=== PATIENT | male | born 1945 | race American Indian/Alaskan Native ===

== ENCOUNTER 2017-04-04 10:34 | Inpatient (IN) | payer MEDICARE, BC ==
[2017-04-04 10:35] VITALS: PULSE 113
--- NOTE | 2017-04-04 10:38 | C.PDOC ---
Chief Complaint (Nursing): Weakness/Neurological Deficit Past Medical History - Medical History PMH: Arthritis, Atrial Fibrillation (A flutter), CHF, Diabetes, Deep Vein Thrombosis, HTN, Hypercholesterolemia, Hyperlipidemia, Peripheral Edema, Chronic Kidney Disease - [facility] Procedures DILATE R EXT ILIAC ART W DRUG-ELUT INTRALUM, PERC (01/17/15) DILATION OF RIGHT COMMON ILIAC ARTERY, PERCUTANEOUS APPROACH (01/17/15) INSERTION OF INTRALUM DEV INTO INF VENA CAVA, PERC APPROACH (01/17/15) INTRODUCE OTH THROMBOLYTIC IN PERIPH VEIN, PERC (01/17/15) TETANUS TOXOID ADMINIST (12/06/14) Family History: States: Unknown Family Hx - Social History Hx Tobacco Use: No Hx Alcohol Use: No Hx Substance Use: No - Immunization History Hx Tetanus Toxoid Vaccination: Yes (12/06/2014) Hx Influenza Vaccination: Yes Hx Pneumococcal Vaccination: Yes Disposition - Disposition
--- NOTE | 2017-04-04 10:39 | C.PDOC ---
History Of Present Illness 71 y/o male with history of DM and neuropathy brought to ED by EMS with complaints of left sided weakness and visual disturbance for 1hr and half as per patient. As per EMS patient's roommate called 911 and states patient took too much insulin this morning. At baseline patient has weakness and is normally in wheelchair but states weakness is worse now. No other complaints at this time. Time Seen by Provider: 04/04/17 10:38 Chief Complaint (Nursing): Weakness/Neurological Deficit History Per: Patient, EMS History/Exam Limitations: no limitations Onset/Duration Of Symptoms: Hrs Current Symptoms Are (Timing): Still Present Past Medical History Reviewed: Historical Data, Nursing Documentation, Vital Signs Vital Signs: Last Vital Signs Temp 98.5 F 04/06/17 07:49 Pulse 79 04/06/17 07:49 Resp 20 04/06/17 07:49 BP 124/75 04/06/17 07:49 Pulse Ox 100 04/06/17 07:49 - Medical History PMH: Arthritis, Atrial Fibrillation (A flutter), CHF, Diabetes, Deep Vein Thrombosis, HTN, Hypercholesterolemia, Hyperlipidemia, Peripheral Edema, Chronic Kidney Disease Surgical History: No Surg Hx - [facility] Procedures DILATE R EXT ILIAC ART W DRUG-ELUT INTRALUM, PERC (01/17/15) DILATION OF RIGHT COMMON ILIAC ARTERY, PERCUTANEOUS APPROACH (01/17/15) INSERTION OF INTRALUM DEV INTO INF VENA CAVA, PERC APPROACH (01/17/15) INTRODUCE OTH THROMBOLYTIC IN PERIPH VEIN, PERC (01/17/15) TETANUS TOXOID ADMINIST (12/06/14) Family History: States: No Known Family Hx - Social History Hx Tobacco Use: No Hx Alcohol Use: No Hx Substance Use: No - Immunization History Hx Tetanus Toxoid Vaccination: Yes (12/06/2014) Hx Influenza Vaccination: Yes Hx Pneumococcal Vaccination: Yes Review Of Systems Constitutional: Negative for: Fever, Chills Eyes: Positive for: Vision Change Gastrointestinal: Negative for: Nausea, Vomiting Neurological: Positive for: Weakness. Negative for: Numbness, Headache Physical Exam - Physical Exam Appears: Non-toxic Skin: Warm, Dry, No Rash Head: Atraumatic, Normacephalic Oral Mucosa: Moist Neck: Supple Cardiovascular: Rhythm Regular Respiratory: Normal Breath Sounds, No Rales, No Rhonchi, No Wheezing Gastrointestinal/Abdominal: Soft, No Tenderness, No Guarding, No Rebound Extremity: Pedal Edema (2+ to left lower leg) Neurological/Psych: Oriented x3, No Normal Speech (Slurred speech) ED Course And Treatment - Laboratory Results Result Diagrams: 04/05/17 07:38 04/05/17 07:38 ECG: Interpreted By Me, Viewed By Me ECG Rhythm: Sinus Tachycardia Rate From EC (bpm) O2 Sat by Pulse Oximetry: 100 (RA) Pulse Ox Interpretation: Normal - CT Scan/US Head w/o contrast Other Rad Studies (CT/US): Read By Radiologist, Radiology Report Reviewed CT/US Interpretation: PROCEDURE: CT HEAD WITHOUT CONTRAST. HISTORY: code stroke. COMPARISON: 03/05/2016. TECHNIQUE: Axial computed tomography images were obtained through the head/brain without intravenous contrast. Radiation dose: Total exam DLP = 951 mGy-cm. This CT exam was performed using one or more of the following dose reduction techniques: Automated exposure control, adjustment of the mA and/or kV according to patient size, and/or use of iterative reconstruction technique. FINDINGS: HEMORRHAGE: No intracranial hemorrhage. BRAIN: No mass effect or edema. There is mild prominence of ventricles and sulci, compatible with mild atrophy. There are bilateral basal ganglia calcifications. There is mild diminished density of the white matter bilaterally, consistent with mild microangiopathy. VENTRICLES: Ventricular appearance commensurate with the degree of atrophy. CALVARIUM: Intact. The left scalp occipital swelling is similar to perhaps a slightly low minimally decreased. PARANASAL SINUSES: Mucosal thickening ethmoidal and sphenoid sinuses consistent with inflammatory sinusitis. This is an interval change. MASTOID AIR CELLS: Unremarkable as visualized. No inflammatory changes. OTHER FINDINGS: None. IMPRESSION: No interval intracranial hemorrhage or mass effect. . Atrophy and inferred nonspecific probable deep white matter microangiopathy - stable appearing. Interval paranasal sinus inflammatory changes. rTPA Inclusion/Exclusion - Refusal of Treatment Patient Refused Treatment: No - Inclusion Criteria for Altepase Patient is 18 years or Older: Yes The Clinical Diagnosis of Ischemic Stroke That is Causing a Potentially Disabling Neurological Deficit: No Time of Onset is Well Established to be Less Than 270 Minute Before Treatment Would Begin: Yes Risk/Benefit Discussed With Patient/Family Member Present: No Medical Decision Making Medical Decision Making: Progress: 1033- Code stroke called at ED 1047- discussed with patient PMD Dr dexter who states patient has left sided weakness at baseline and had similar presentation in past, felt symptoms were secondary to medication 1110 Dr Rayna rosales pt by video. rec NO tpa at this time. rec IVF< asa, plavix load Disposition - Disposition Disposition: HOSPITALIZED Disposition Time: 12:20 Condition: STABLE - Clinical Impression Clinical Impression: Slurred speech, Left-sided weakness - Scribe Statement The provider has reviewed the documentation as recorded by the Luis Eibmargareth Can All medical record entries made by the Luis Eibmargareth were at my direction and personally dictated by me. I have reviewed the chart and agree that the record accurately reflects my personal performance of the history, physical exam, medical decision making, and the department course for this patient. I have also personally directed, reviewed, and agree with the discharge instructions and disposition. NIHSS Stroke Scale - Date/Time Evaluation Performed Date Performed: 04/04/17 Time Performed: 10:33 - How Severe is the Stoke Level of Consciousness: 0=Alert LOC to Questions: 1=One correct LOC to commands: 0=Obeys both correctly Best Gaze: 0=Normal Visual: 0=No visual loss Facial: 0=Normal Motor Arm - Left: 0=No drift Motor Arm - Right: 0=No drift Motor Leg - Left: 2=Falls before 5 sec Motor Leg - Right: 0=No drift Limb Ataxia: 1=Present Upper or Lower Sensory: 0=Normal Best Language: 0=No aphasia Dysarthia: 1=Mild to moderate slurring Extinction & Inattention (Neglect): 0=Normal, no object Score: 5 Severity Of Stroke: 5-15= Moderate Stroke
[2017-04-04] MEDS ORDERED: Iodixanol 320 MG/ML 100 ML BOTTLE IV ONE (10:45)
--- NOTE | 2017-04-04 10:50 | CT ---
PROCEDURE: CT HEAD WITHOUT CONTRAST. HISTORY: code stroke COMPARISON: 03/05/2016 TECHNIQUE: Axial computed tomography images were obtained through the head/brain without intravenous contrast. Radiation dose: Total exam DLP = 951 mGy-cm. This CT exam was performed using one or more of the following dose reduction techniques: Automated exposure control, adjustment of the mA and/or kV according to patient size, and/or use of iterative reconstruction technique. FINDINGS: HEMORRHAGE: No intracranial hemorrhage. BRAIN: No mass effect or edema. There is mild prominence of ventricles and sulci, compatible with mild atrophy. There are bilateral basal ganglia calcifications. There is mild diminished density of the white matter bilaterally, consistent with mild microangiopathy. VENTRICLES: Ventricular appearance commensurate with the degree of atrophy CALVARIUM: Intact. The left scalp occipital swelling is similar to perhaps a slightly low minimally decreased PARANASAL SINUSES: Mucosal thickening ethmoidal and sphenoid sinuses consistent with inflammatory sinusitis. This is an interval change. MASTOID AIR CELLS: Unremarkable as visualized. No inflammatory changes. OTHER FINDINGS: None. IMPRESSION: No interval intracranial hemorrhage or mass effect. . Atrophy and inferred nonspecific probable deep white matter microangiopathy - stable appearing Interval paranasal sinus inflammatory changes.
[2017-04-04 11:03] VITALS: BMI 29.2
[2017-04-04 11:14] LABS: BASO # 0.1 K/uL (0.0-0.2); BASO % 1.3 % (0.0-2.0); EOS # 0.2 K/uL (0.0-0.7); EOS % 2.1 % (0.0-4.0); HEMOGLOBIN 13.2 g/dL (12.0-18.0); LYMPH # 2.4 K/uL (1.0-4.3); LYMPH % 31.2 % (20.0-40.0); MEAN CELL VOLUME 94.6 fL (80.0-94.0); MEAN CORPUSCULAR HEMOGLOBIN 32.5 pg (27.0-31.0); MEAN CORPUSCULAR HGB CONC 34.4 g/dL (33.0-37.0); MEAN PLATELET VOLUME 8.3 fL (7.2-11.7); MONO # 0.6 K/uL (0.0-0.8); MONO % 8.1 % (0.0-10.0); NEUT # 4.4 K/uL (1.8-7.0); NEUT % 57.3 % (50.0-75.0); RBC 4.06 Mil/uL (4.40-5.90); RED CELL DISTRIBUTION WIDTH 13.8 % (11.5-14.5); WHITE BLOOD COUNT 7.6 K/uL (4.8-10.8)
[2017-04-04 11:22] LABS: INR 1.7; PROTHROMBIN TIME 19.3 SECONDS (9.7-12.2)
--- NOTE | 2017-04-04 11:22 | CT ---
PROCEDURE: CT Angiography of the Brain. HISTORY: code stroke COMPARISON: None available. TECHNIQUE: CT angiography of the intracranial arteries was performed. Coronal and sagittal maximum intensity projection reformated images were generated. This CT exam was performed using one or more of the following dose reduction techniques: Automated exposure control, adjustment of the mA and/or kV according to patient size, and/or use of iterative reconstruction technique. FINDINGS: INTERNAL CEREBRAL ARTERIES: Unremarkable. The skull base, petrous, cavernous and supraclinoid segments are bilaterally widely patent. ANTERIOR CEREBRAL ARTERIES: Unremarkable. A1 and A2 segments are widely patent. Smaller distal branches unremarkable, as visualized. MIDDLE CEREBRAL ARTERIES: Unremarkable. M1 and M2 segments are widely patent. Perisylvian branches grossly symmetric. POSTERIOR CIRCULATION: Basilar Artery: Unremarkable. Distal Vertebral Arteries: Unremarkable. Posterior Cerebral Arteries: Unremarkable. Posterior Inferior Cerebellar Arteries: Unremarkable. ANEURYSM/ VASCULAR MALFORMATIONS: None. OTHER FINDINGS: None. IMPRESSION: Unremarkable CT Angiography of the Brain. CT Angiography of the neck with contrast HISTORY: code stroke COMPARISON: None available. TECHNIQUE: Contiguous axial images of the neck were obtained from the level of the skull-base to the superior mediastinum in the arteriographic phase of enhancement. Coronal and sagittal reformats or also generated. IV contrast dose: 100 cc of Visipaque Radiation Dose - DLP: 702 mGy-cm This CT exam was performed using one or more of the following dose reduction techniques: Automated exposure control, adjustment of the mA and/or kV according to patient size, and/or use of iterative reconstruction technique. FINDINGS: RIGHT CAROTID ARTERIES: Common Carotid Artery: Normal. Carotid Bifurcation: Calcified plaque without stenosis Internal Carotid Artery:Normal. External Carotid Artery (proximal branches): Normal. LEFT CAROTID ARTERIES: Common Carotid Artery: Normal. Carotid Bifurcation: Calcified plaque without stenosis Internal Carotid Artery:Normal. External Carotid Artery (proximal branches): Normal. VERTEBRAL ARTERIES: Right Vertebral Artery: Normal. Left Vertebral Artery: Normal. OTHER FINDINGS: None. IMPRESSION: No significant stenosis
[2017-04-04] MEDS ORDERED: Sodium Chloride 0.9% 1,000 ML IV SCH (11:30)
[2017-04-04 11:32] LABS: ALBUMIN 3.6 g/dL (3.5-5.0); CALCIUM 7.8 mg/dl (8.6-10.4); GFR AFRICAN-AMERICAN > 60; GFR NON-AFRICAN AMERICAN 54; HDL CHOLESTEROL 36 mg/dL (30-70)
[2017-04-04 11:35] LABS: ALT/SGPT 23 U/L (21-72); AST/SGOT 29 U/L (17-59); BLOOD UREA NITROGEN 18 mg/dL (9-20)
[2017-04-04 11:43] LABS: LDL CHOLESTEROL 117 mg/dL (0-129)
[2017-04-04] MEDS ORDERED: Sodium Chloride 0.9% 1,000 ML ONE (11:44)
--- NOTE | 2017-04-04 12:03 | RAD ---
HISTORY: code stroke COMPARISON: Chest x-ray performed 03/05/16 TECHNIQUE: Chest, one view. FINDINGS: LUNGS: No focal consolidation. Probable right apical calcified granuloma. Please note that chest x-ray has limited sensitivity for the detection of pulmonary masses. PLEURA: No significant pleural effusion identified. No definite pneumothorax . CARDIOVASCULAR: Heart size appears within normal limits. Atherosclerotic calcification of the aortic knob. OSSEOUS STRUCTURES: Degenerative changes of the spine. VISUALIZED UPPER ABDOMEN: Unremarkable. OTHER FINDINGS: None. IMPRESSION: No focal consolidation, significant pleural effusion, or definite pneumothorax identified.
[2017-04-04 12:10] LABS: B-TYPE NATRIURETIC PEPTIDE 344 pg/mL (0-900)
[2017-04-04 12:21] LABS: BARBITURATES, UR NEGATIVE (NEGATIVE); BENZODIAZEPINES, UR NEGATIVE (NEGATIVE); OPIATES, UR NEGATIVE (NEGATIVE); PHENCYCLIDINE, UR NEGATIVE (NEGATIVE)
--- NOTE | 2017-04-04 13:29 | CP.PCM.CON ---
History of Present Illness - History of Present Illness History of Present Illness: This is a tele-stroke visit and the patient was seen through two way video- conference at [facility] ED. The video IN time was 11:05 AM, and Video OUT time was 11:15 AM. Mr. Miller is a 71-year-old man with a past medical history of hypertension, DM, HLD, atrial fibrillation (on Eliquis), chronic pain and peripheral neuropathy, who woke up this morning with worsening left leg weakness and dysarthria. His last known normal time was yesterday. The initial NIHSS was 4. He was not a candidate for IV tPA due to being outside the 4.5 hour time window and being on Eliquis. Review of Systems - Review of Systems All systems: reviewed and no additional remarkable complaints except Past Patient History - Infectious Disease Hx of Infectious Diseases: None - Past Medical History & Family History Past Medical History?: Yes - Past Social History Smoking Status: Unknown If Ever Smoked - CARDIAC Hx Atrial Fibrillation: Yes (A flutter) Hx Congestive Heart Failure: Yes Hx Hypercholesterolemia: Yes Hx Hypertension: Yes Hx Peripheral Edema: Yes - PULMONARY Hx Respiratory Disorders: No - NEUROLOGICAL Hx Neurological Disorder: Yes Other/Comment: weakness both upper and lower extremiies. Pt on tegretol - HEENT Hx HEENT Problems: Yes Other/Comment: difficulty seeing far - RENAL Hx Chronic Kidney Disease: Yes - ENDOCRINE/METABOLIC Hx Diabetes Mellitus Type 1: Yes - HEMATOLOGICAL/ONCOLOGICAL Hx Blood Disorders: No - INTEGUMENTARY Hx Dermatological Problems: Yes Other/Comment: discoloration BLE - MUSCULOSKELETAL/RHEUMATOLOGICAL Hx Arthritis: Yes - GASTROINTESTINAL Hx Gastrointestinal Disorders: Yes Hx Constipation: Yes - GENITOURINARY/GYNECOLOGICAL Hx Genitourinary Disorders: Yes - PSYCHIATRIC Hx Substance Use: No - SURGICAL HISTORY Hx Surgeries: Yes Hx Angioplasty: Yes Hx Orthopedic Surgery: Yes (RODDING TO LE) - ANESTHESIA Hx Anesthesia: Yes Hx Anesthesia Reactions: No Hx Malignant Hyperthermia: No Meds Allergies/Adverse Reactions: Allergies Allergy/AdvReac Type Severity Reaction Status Date / Time No Known Allergies Allergy Verified 03/05/16 21:31 - Medications Medications: Current Medications Sodium Chloride (Sodium Chloride 0.9%) 1,000 mls @ 100 mls/hr IV .Q10H KENNEDY Last Admin: 04/04/17 11:53 Dose: 100 mls/hr Physical Exam - Constitutional Appears: Confused, Chronically Ill - Head Exam Head Exam: ATRAUMATIC, NORMAL INSPECTION, NORMOCEPHALIC - Eye Exam Eye Exam: EOMI, Normal appearance, PERRL - ENT Exam ENT Exam: Mucous Membranes Moist, Normal Exam - Neurological Exam Neurological exam: CN II-XII Intact, Oriented x3 Additional comments: AAOX3, No facial droop, Bilateral upper extremity movements is antigravity with frequent myoclonic jerks, RLE is maintained for over 5 seconds antigravity, LLE falls after 1-2 seconds. Sensation is intact throughout. Speech is dysarthric , but not aphasic. Repetition was intact. Gait not assessed. Coordination is intact to FTN. NIHSS = 4. Results - Vital Signs Recent Vital Signs: Last Vital Signs Temp Pulse 105 H 04/04/17 12:06 Resp 21 04/04/17 12:06 BP 124/84 04/04/17 12:06 Pulse Ox 100 04/04/17 12:13 - Labs Result Diagrams: 04/04/17 11:10 04/04/17 11:07 Labs: Laboratory Results - last 24 hr 04/04/17 04/04/17 04/04/17 10:32 11:07 11:07 WBC RBC Hgb Hct MCV MCH MCHC RDW Plt Count MPV Neut % (Auto) Lymph % (Auto) [place] % (Auto) Eos % (Auto) Baso % (Auto) Neut # Lymph # [place] # Eos # Baso # PT INR APTT Sodium 133 Potassium 5.1 Chloride 101 Carbon Dioxide 25 Anion Gap 12 BUN 18 Creatinine 1.3 Est GFR ( Amer) > 60 Est GFR (Non-Af Amer) 54 POC Glucose (mg/dL) 111 H Random Glucose 128 H Hemoglobin A1c 8.3 H Calcium 7.8 L Total Bilirubin 0.7 AST 29 ALT 23 Alkaline Phosphatase 85 NT-Pro-B Natriuret Pep 344 Total Protein 7.3 Albumin 3.6 Globulin 3.7 Albumin/Globulin Ratio 1.0 Triglycerides 100 D Cholesterol 201 H LDL Cholesterol Direct 117 HDL Cholesterol 36 Urine Opiates Screen Urine Methadone Screen Ur Barbiturates Screen Ur Phencyclidine Scrn Ur Amphetamines Screen U Benzodiazepines Scrn U Oth Cocaine Metabols U Cannabinoids Screen Blood Type Antibody Screen 04/04/17 04/04/17 04/04/17 11:10 11:10 11:33 WBC 7.6 RBC 4.06 L Hgb 13.2 Hct 38.4 MCV 94.6 H MCH 32.5 H MCHC 34.4 RDW 13.8 Plt Count 208 MPV 8.3 Neut % (Auto) 57.3 Lymph % (Auto) 31.2 [place] % (Auto) 8.1 Eos % (Auto) 2.1 Baso % (Auto) 1.3 Neut # 4.4 Lymph # 2.4 [place] # 0.6 Eos # 0.2 Baso # 0.1 PT 19.3 H INR 1.7 APTT 38 H Sodium Potassium Chloride Carbon Dioxide Anion Gap BUN Creatinine Est GFR ( Amer) Est GFR (Non-Af Amer) POC Glucose (mg/dL) Random Glucose Hemoglobin A1c Calcium Total Bilirubin AST ALT Alkaline Phosphatase NT-Pro-B Natriuret Pep Total Protein Albumin Globulin Albumin/Globulin Ratio Triglycerides Cholesterol LDL Cholesterol Direct HDL Cholesterol Urine Opiates Screen Urine Methadone Screen Ur Barbiturates Screen Ur Phencyclidine Scrn Ur Amphetamines Screen U Benzodiazepines Scrn U Oth Cocaine Metabols U Cannabinoids Screen Blood Type A POSITIVE Antibody Screen Negative 04/04/17 11:42 WBC RBC Hgb Hct MCV MCH MCHC RDW Plt Count MPV Neut % (Auto) Lymph % (Auto) [place] % (Auto) Eos % (Auto) Baso % (Auto) Neut # Lymph # [place] # Eos # Baso # PT INR APTT Sodium Potassium Chloride Carbon Dioxide Anion Gap BUN Creatinine Est GFR ( Amer) Est GFR (Non-Af Amer) POC Glucose (mg/dL) Random Glucose Hemoglobin A1c Calcium Total Bilirubin AST ALT Alkaline Phosphatase NT-Pro-B Natriuret Pep Total Protein Albumin Globulin Albumin/Globulin Ratio Triglycerides Cholesterol LDL Cholesterol Direct HDL Cholesterol Urine Opiates Screen Negative Urine Methadone Screen Negative Ur Barbiturates Screen Negative Ur Phencyclidine Scrn Negative Ur Amphetamines Screen Negative U Benzodiazepines Scrn Negative U Oth Cocaine Metabols Negative U Cannabinoids Screen Negative Blood Type Antibody Screen Assessment & Plan (1) Ischemic stroke Assessment and Plan: The patient was evaluated through the [employer] system with bi- directional video examination. He is not a candidate for IV tPA. However, I recommend the followin. Telemetry 2. MRI of the brain without contrast. 3. Echocardiogram with bubble study 4. Continue Eliquis, If he missed a dose, give Plavix 300 mg PO once and Aspirin 81 mg PO once (after swallow evaluation is completed) 5. Lipid Panel 6. PT/OT eval and treat 7. Fluids with NS at 100 mL/hr 9. Case management consult 10. Urine toxicology screen. Thank you. Status: Acute Priority: High
[2017-04-04] MEDS: Sodium Chloride 0.9% 1,000 ML IV SCH (14:22)
--- NOTE | 2017-04-04 21:45 | CP.PCM.HP ---
History of Present Illness - History of Present Illness History of Present Illness: chief complaint: Altered mental status History of present illness: 71-year-old malewith history of hypertension, diabetes, peripheral vascular disease, DVT, history of left leg nonunion, status post surgery, left upper extremity reflex osteodystrophy, and associated with the neuropathy, cervical spinal disorders with cervical spondylosis, repeated falls in the past came to the emergency room, brought in by ambulance because of altered mental status. This morning patient was not able to move the left upper extremity and lower extremity, and also he was not able to communicate with home health aide, and called ambulance brought him to the emergency room. In the emergency room patient was unconscious, not responding to deep stimuli. He was not able to move the left upper extremity. Because of that initially "stroke alert was called, and he had a CAT scan. But there was no obvious focal deficit. Now patient is , he is responding. Complaining of pain in the left upper extremity, and also significant weakness and wasting noted in the left upper extremity. He is also complaining of weakness in the left lower extremity. He is able to communicate now, he is alert and awake now. [facility], now he is also oriented to place. Past medical history: osteoarthritis, history of congestive heart failure, diabetes, deep venous thrombosis, hypertension, hypercholesterolemia, hyperlipidemia, peripheral vascular disease, chronic renal insufficiency, reflex osteodystrophy, cervical spinal stenosis and also left upper extremity weakness. Surgical history: Peripheral arterial intervention, thrombolysis therapy to the left leg, history of left leg nonunion, and grafting intramedullary nailing in the past. Allergies no known drug allergic personal history: Lifelong nonsmoker, nonalcoholic. System: Patient is currently no headache, complaining of some neck pain, weakness in the left upper extremity, and also contractures noted, pain present in the left upper tone throughout the forearm, also complaining of some pain in the left lower extremity, she denies any chest pain or shortness of breath, denies any nausea vomiting On examination: Vital signs stable, mild tachycardia noted. Alert awake oriented 3, he has no functional residual weakness at this time. HEENT PERRLA. Neck minimal stiffness noted. Bilateral good air entry no wheezing or rales noted irregular heart sound nontender abdomen. Bilateral pedal edema noted more on the left side. patient's labs reviewed in Nonspecific. Elevated potassium initially noted, but repeat potassium level is normal CT scan of the chest showing no evidence of any acute findings. CT angiogram also negative. Chest x-ray is nonspecific. 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 Patient now admitted with altered mental status, but now improving, most likely metabolic encephalopathy. Tegretol overdose cannot be ruled out. Will get the blood levels in the morning. Continued IV hydration. Pain management. prognosis is guarded. Neurologic and neuroforaminal opening. The patient Present on Admission - Present on Admission Any Indicators Present on Admission: No History of DVT/PE: No History of Uncontrolled Diabetes: No Urinary Catheter: No Decubitus Ulcer Present: No Past Patient History - Infectious Disease Hx of Infectious Diseases: None - Past Medical History & Family History Past Medical History?: Yes - Past Social History Smoking Status: Unknown If Ever Smoked - CARDIAC Hx Atrial Fibrillation: Yes (A flutter) Hx Congestive Heart Failure: Yes Hx Hypercholesterolemia: Yes Hx Hypertension: Yes Hx Peripheral Edema: Yes - PULMONARY Hx Respiratory Disorders: No - NEUROLOGICAL Hx Neurological Disorder: Yes Other/Comment: weakness both upper and lower extremiies. Pt on tegretol - HEENT Hx HEENT Problems: Yes Other/Comment: difficulty seeing far - RENAL Hx Chronic Kidney Disease: Yes - ENDOCRINE/METABOLIC Hx Diabetes Mellitus Type 1: Yes - HEMATOLOGICAL/ONCOLOGICAL Hx Blood Disorders: No - INTEGUMENTARY Hx Dermatological Problems: Yes Other/Comment: discoloration BLE - MUSCULOSKELETAL/RHEUMATOLOGICAL Hx Arthritis: Yes - GASTROINTESTINAL Hx Gastrointestinal Disorders: Yes Hx Constipation: Yes - GENITOURINARY/GYNECOLOGICAL Hx Genitourinary Disorders: Yes - PSYCHIATRIC Hx Substance Use: No - SURGICAL HISTORY Hx Surgeries: Yes Hx Angioplasty: Yes Hx Orthopedic Surgery: Yes ([facility]ODDING TO MAEVE) - ANESTHESIA Hx Anesthesia: Yes Hx Anesthesia Reactions: No Hx Malignant Hyperthermia: No Meds Allergies/Adverse Reactions: Allergies Allergy/AdvReac Type Severity Reaction Status Date / Time No Known Allergies Allergy Verified 03/05/16 21:31 Results - Vital Signs Recent Vital Signs: Last Vital Signs Temp 98 F 04/04/17 20:58 Pulse 105 H 04/04/17 20:58 Resp 20 04/04/17 20:58 BP 109/74 01/18/18 20:58 Pulse Ox 96 04/04/17 20:58 - Labs Result Diagrams: 04/04/17 11:10 04/04/17 11:07 Labs: Laboratory Results - last 24 hr 04/04/17 04/04/17 04/04/17 10:32 11:07 11:07 WBC RBC Hgb Hct MCV MCH MCHC RDW Plt Count MPV Neut % (Auto) Lymph % (Auto) [place] % (Auto) Eos % (Auto) Baso % (Auto) Neut # Lymph # [place] # Eos # Baso # PT INR APTT Sodium 133 Potassium 5.1 Chloride 101 Carbon Dioxide 25 Anion Gap 12 BUN 18 Creatinine 1.3 Est GFR ( Amer) > 60 Est GFR (Non-Af Amer) 54 POC Glucose (mg/dL) 111 H Random Glucose 128 H Hemoglobin A1c 8.3 H Calcium 7.8 L Total Bilirubin 0.7 AST 29 ALT 23 Alkaline Phosphatase 85 NT-Pro-B Natriuret Pep 344 Total Protein 7.3 Albumin 3.6 Globulin 3.7 Albumin/Globulin Ratio 1.0 Triglycerides 100 D Cholesterol 201 H LDL Cholesterol Direct 117 HDL Cholesterol 36 Urine Opiates Screen Urine Methadone Screen Ur Barbiturates Screen Ur Phencyclidine Scrn Ur Amphetamines Screen U Benzodiazepines Scrn U Oth Cocaine Metabols U Cannabinoids Screen Blood Type Antibody Screen 04/04/17 04/04/17 04/04/17 11:10 11:10 11:33 WBC 7.6 RBC 4.06 L Hgb 13.2 Hct 38.4 MCV 94.6 H MCH 32.5 H MCHC 34.4 RDW 13.8 Plt Count 208 MPV 8.3 Neut % (Auto) 57.3 Lymph % (Auto) 31.2 [place] % (Auto) 8.1 Eos % (Auto) 2.1 Baso % (Auto) 1.3 Neut # 4.4 Lymph # 2.4 [place] # 0.6 Eos # 0.2 Baso # 0.1 PT 19.3 H INR 1.7 APTT 38 H Sodium Potassium Chloride Carbon Dioxide Anion Gap BUN Creatinine Est GFR ( Amer) Est GFR (Non-Af Amer) POC Glucose (mg/dL) Random Glucose Hemoglobin A1c Calcium Total Bilirubin AST ALT Alkaline Phosphatase NT-Pro-B Natriuret Pep Total Protein Albumin Globulin Albumin/Globulin Ratio Triglycerides Cholesterol LDL Cholesterol Direct HDL Cholesterol Urine Opiates Screen Urine Methadone Screen Ur Barbiturates Screen Ur Phencyclidine Scrn Ur Amphetamines Screen U Benzodiazepines Scrn U Oth Cocaine Metabols U Cannabinoids Screen Blood Type A POSITIVE Antibody Screen Negative 04/04/17 11:42 WBC RBC Hgb Hct MCV MCH MCHC RDW Plt Count MPV Neut % (Auto) Lymph % (Auto) [place] % (Auto) Eos % (Auto) Baso % (Auto) Neut # Lymph # [place] # Eos # Baso # PT INR APTT Sodium Potassium Chloride Carbon Dioxide Anion Gap BUN Creatinine Est GFR ( Amer) Est GFR (Non-Af Amer) POC Glucose (mg/dL) Random Glucose Hemoglobin A1c Calcium Total Bilirubin AST ALT Alkaline Phosphatase NT-Pro-B Natriuret Pep Total Protein Albumin Globulin Albumin/Globulin Ratio Triglycerides Cholesterol LDL Cholesterol Direct HDL Cholesterol Urine Opiates Screen Negative Urine Methadone Screen Negative Ur Barbiturates Screen Negative Ur Phencyclidine Scrn Negative Ur Amphetamines Screen Negative U Benzodiazepines Scrn Negative U Oth Cocaine Metabols Negative U Cannabinoids Screen Negative Blood Type Antibody Screen
[2017-04-04 22:55] VITALS: RESP 20
[2017-04-04] MEDS ORDERED: Oxycodone/Acetaminophen 5/325 mg Tab PO STA (23:52)
[2017-04-05 02:21] LABS: FREE T4 0.63 ng/dL (0.78-2.19)
[2017-04-05] MEDS: Sodium Chloride 0.9% 1,000 ML IV SCH ×3 (05:28→20:26)
--- NOTE | 2017-04-05 07:12 | CP.PCM.CON ---
History of Present Illness - History of Present Illness History of Present Illness: CONSULT DICTATED RIGHT CEREBRAL DYSFUNTION LEFT HEMIPARESIS BROCAS APHASIA RESOLVED MRI/CAROTID/EEG AGREE ELIQUIS WITH [facility] PT Past Patient History - Infectious Disease Hx of Infectious Diseases: None - Past Medical History & Family History Past Medical History?: Yes - Past Social History Smoking Status: Light Smoker < 10 Cigarettes Daily - CARDIAC Hx Atrial Fibrillation: Yes (A flutter) Hx Congestive Heart Failure: Yes Hx Hypercholesterolemia: Yes Hx Hypertension: Yes Hx Peripheral Edema: Yes - PULMONARY Hx Respiratory Disorders: No - NEUROLOGICAL Hx Neurological Disorder: Yes Other/Comment: weakness both upper and lower extremiies. Pt on tegretol - HEENT Hx HEENT Problems: Yes Other/Comment: difficulty seeing far - RENAL Hx Chronic Kidney Disease: Yes - ENDOCRINE/METABOLIC Hx Diabetes Mellitus Type 2: Yes - HEMATOLOGICAL/ONCOLOGICAL Hx Blood Disorders: No - INTEGUMENTARY Hx Dermatological Problems: Yes Other/Comment: discoloration BLE - MUSCULOSKELETAL/RHEUMATOLOGICAL Hx Falls: Yes - GASTROINTESTINAL Hx Gastrointestinal Disorders: Yes Hx Constipation: Yes - GENITOURINARY/GYNECOLOGICAL Hx Genitourinary Disorders: Yes - PSYCHIATRIC Hx Substance Use: No - SURGICAL HISTORY Hx Surgeries: Yes Hx Angioplasty: Yes Hx Orthopedic Surgery: Yes ([facility]ANT[facility]H TO MAEVE) - ANESTHESIA Hx Anesthesia: Yes Hx Anesthesia Reactions: No Hx Malignant Hyperthermia: No Meds Allergies/Adverse Reactions: Allergies Allergy/AdvReac Type Severity Reaction Status Date / Time No Known Allergies Allergy Verified 03/05/16 21:31 - Medications Medications: Current Medications Apixaban (Eliquis) 5 mg PO BID [facility] Last Admin: 04/04/17 18:23 Dose: 5 mg Aspirin (Aspirin Chewable) 81 mg PO DAILY [facility] Carbamazepine (Tegretol) 200 mg PO TID [facility] Carvedilol (Coreg) 6.25 mg PO BID [facility] Last Admin: 04/04/17 18:23 Dose: 6.25 mg Gabapentin (Neurontin) 400 mg PO TID [facility] Sodium Chloride (Sodium Chloride 0.9%) 1,000 mls @ 100 mls/hr IV .Q10H [facility] Last Admin: 04/05/17 05:28 Dose: 100 mls/hr Pantoprazole Sodium (Protonix Inj) 40 mg IVP DAILY [facility] Pneumococcal Polyvalent Vaccine (Pneumovax 23 Vaccine) 0.5 ml IM .ONCE ONE Stop: 04/07/17 10:01 Rosuvastatin Calcium (Crestor) 5 mg PO HS [facility] Last Admin: 04/04/17 23:21 Dose: 5 mg Results - Vital Signs Recent Vital Signs: Last Vital Signs Temp 97.2 F L 04/04/17 23:45 Pulse 104 H 04/05/17 00:00 Resp 20 04/04/17 23:45 BP 131/91 H 04/04/17 23:45 Pulse Ox 95 04/04/17 23:45 - Labs Result Diagrams: 04/04/17 11:10 04/04/17 11:07 Labs: Laboratory Results - last 24 hr 04/04/17 04/04/17 04/04/17 10:32 11:07 11:07 WBC RBC Hgb Hct MCV MCH MCHC RDW Plt Count MPV Neut % (Auto) Lymph % (Auto) [place] % (Auto) Eos % (Auto) Baso % (Auto) Neut # Lymph # [place] # Eos # Baso # PT INR APTT Sodium 133 Potassium 5.1 Chloride 101 Carbon Dioxide 25 Anion Gap 12 BUN 18 Creatinine 1.3 Est GFR ( Amer) > 60 Est GFR (Non-Af Amer) 54 POC Glucose (mg/dL) 111 H Random Glucose 128 H Hemoglobin A1c 8.3 H Calcium 7.8 L Total Bilirubin 0.7 AST 29 ALT 23 Alkaline Phosphatase 85 NT-Pro-B Natriuret Pep 344 Total Protein 7.3 Albumin 3.6 Globulin 3.7 Albumin/Globulin Ratio 1.0 Triglycerides 100 D Cholesterol 201 H LDL Cholesterol Direct 117 HDL Cholesterol 36 Free T4 TSH 3rd Generation Prolactin Urine Opiates Screen Urine Methadone Screen Ur Barbiturates Screen Ur Phencyclidine Scrn Ur Amphetamines Screen U Benzodiazepines Scrn U Oth Cocaine Metabols U Cannabinoids Screen Blood Type Antibody Screen 04/04/17 04/04/17 04/04/17 11:10 11:10 11:33 WBC 7.6 RBC 4.06 L Hgb 13.2 Hct 38.4 MCV 94.6 H MCH 32.5 H MCHC 34.4 RDW 13.8 Plt Count 208 MPV 8.3 Neut % (Auto) 57.3 Lymph % (Auto) 31.2 [place] % (Auto) 8.1 Eos % (Auto) 2.1 Baso % (Auto) 1.3 Neut # 4.4 Lymph # 2.4 [place] # 0.6 Eos # 0.2 Baso # 0.1 PT 19.3 H INR 1.7 APTT 38 H Sodium Potassium Chloride Carbon Dioxide Anion Gap BUN Creatinine Est GFR ( Amer) Est GFR (Non-Af Amer) POC Glucose (mg/dL) Random Glucose Hemoglobin A1c Calcium Total Bilirubin AST ALT Alkaline Phosphatase NT-Pro-B Natriuret Pep Total Protein Albumin Globulin Albumin/Globulin Ratio Triglycerides Cholesterol LDL Cholesterol Direct HDL Cholesterol Free T4 TSH 3rd Generation Prolactin Urine Opiates Screen Urine Methadone Screen Ur Barbiturates Screen Ur Phencyclidine Scrn Ur Amphetamines Screen U Benzodiazepines Scrn U Oth Cocaine Metabols U Cannabinoids Screen Blood Type A POSITIVE Antibody Screen Negative 04/04/17 04/04/17 04/05/17 11:42 21:48 01:32 WBC RBC Hgb Hct MCV MCH MCHC RDW Plt Count MPV Neut % (Auto) Lymph % (Auto) [place] % (Auto) Eos % (Auto) Baso % (Auto) Neut # Lymph # [place] # Eos # Baso # PT INR APTT Sodium Potassium Chloride Carbon Dioxide Anion Gap BUN Creatinine Est GFR ( Amer) Est GFR (Non-Af Amer) POC Glucose (mg/dL) 155 H Random Glucose Hemoglobin A1c Calcium Total Bilirubin AST ALT Alkaline Phosphatase NT-Pro-B Natriuret Pep Total Protein Albumin Globulin Albumin/Globulin Ratio Triglycerides Cholesterol LDL Cholesterol Direct HDL Cholesterol Free T4 0.63 L TSH 3rd Generation 1.34 Prolactin Urine Opiates Screen Negative Urine Methadone Screen Negative Ur Barbiturates Screen Negative Ur Phencyclidine Scrn Negative Ur Amphetamines Screen Negative U Benzodiazepines Scrn Negative U Oth Cocaine Metabols Negative U Cannabinoids Screen Negative Blood Type Antibody Screen 04/05/17 04/05/17 01:32 06:51 WBC RBC Hgb Hct MCV MCH MCHC RDW Plt Count MPV Neut % (Auto) Lymph % (Auto) [place] % (Auto) Eos % (Auto) Baso % (Auto) Neut # Lymph # [place] # Eos # Baso # PT INR APTT Sodium Potassium Chloride Carbon Dioxide Anion Gap BUN Creatinine Est GFR ( Amer) Est GFR (Non-Af Amer) POC Glucose (mg/dL) 133 H Random Glucose Hemoglobin A1c Calcium Total Bilirubin AST ALT Alkaline Phosphatase NT-Pro-B Natriuret Pep Total Protein Albumin Globulin Albumin/Globulin Ratio Triglycerides Cholesterol LDL Cholesterol Direct HDL Cholesterol Free T4 TSH 3rd Generation Prolactin 8.3 Urine Opiates Screen Urine Methadone Screen Ur Barbiturates Screen Ur Phencyclidine Scrn Ur Amphetamines Screen U Benzodiazepines Scrn U Oth Cocaine Metabols U Cannabinoids Screen Blood Type Antibody Screen
[2017-04-05 07:51] LABS: BASO % 0.4 % (0.0-2.0); EOS # 0.2 K/uL (0.0-0.7); EOS % 2.4 % (0.0-4.0); HEMOGLOBIN 13.3 g/dL (12.0-18.0); LYMPH # 2.1 K/uL (1.0-4.3); MEAN CELL VOLUME 93.3 fL (80.0-94.0); MEAN CORPUSCULAR HEMOGLOBIN 32.4 pg (27.0-31.0); MEAN CORPUSCULAR HGB CONC 34.7 g/dL (33.0-37.0); MEAN PLATELET VOLUME 8.5 fL (7.2-11.7); MONO # 0.6 K/uL (0.0-0.8); MONO % 7.9 % (0.0-10.0); NEUT # 4.8 K/uL (1.8-7.0); NEUT % 62.3 % (50.0-75.0); RBC 4.11 Mil/uL (4.40-5.90); RED CELL DISTRIBUTION WIDTH 13.7 % (11.5-14.5); WHITE BLOOD COUNT 7.8 K/uL (4.8-10.8)
[2017-04-05 10:25] LABS: ALBUMIN 3.4 g/dL (3.5-5.0); ALT/SGPT 22 U/L (21-72); AST/SGOT 19 U/L (17-59); BLOOD UREA NITROGEN 14 mg/dL (9-20); CALCIUM 8.1 mg/dl (8.6-10.4); GFR AFRICAN-AMERICAN > 60; GFR NON-AFRICAN AMERICAN > 60
--- NOTE | 2017-04-05 11:18 | CARD ---
APPROVED REPORT EKG Measurement Heart [id number] <Conclusion> Sinus tachycardia baseline artifacts Borderline ECG
--- NOTE | 2017-04-05 13:43 | VASCLAB ---
PROCEDURE: HISTORY: assess stenosis COMPARISON: None available. TECHNIQUE: Grayscale and duplex Doppler evaluation of the cervical carotid and vertebral arteries were performed. The common carotid, carotid bifurcations and cervical Internal Carotid Artery (ICA) and proximal External Carotid Artery (ECA) were evaluated. The vertebral arteries were evaluated for gross patency and flow direction. Report prepared by Raul Pillai, BS, RVT FINDINGS: RIGHT CAROTID ARTERIES: 1. Common Carotid Artery: No significant focal plaque formation of the right common carotid artery. Maximum Peak Systolic velocity: 71 cm/sec: End-diastolic velocity 17 cm/sec. 2. Carotid Bifurcation: Calcific plaque formation. Maximum Peak Systolic velocity: 72 cm/sec: End-diastolic velocity 16 cm/sec. 3. Internal Carotid Artery: Plaque description: 3.1. Proximal Segment: Peak systolic velocity 88 cm/sec: End-diastolic velocity 27 cm/sec - % stenosis 0-15% 3.2. Middle Segment: Peak systolic velocity 60 cm/sec: End-diastolic velocity 23 cm/sec - % stenosis 0-15% 3.3. Distal Segment: Peak systolic velocity 41 cm/sec: End-diastolic velocity 16 cm/sec - % stenosis 0-15% 4. External Carotid Artery: No significant focal plaque formation. Peak systolic velocity 65 cm/sec 5. ICA/CCA Ratio: 1.2 LEFT CAROTID ARTERIES: 1. Common Carotid Artery: No significant focal plaque formation of the left common carotid artery. Maximum Peak Systolic velocity: 76 cm/sec: End-diastolic velocity 18 cm/sec. 2. Carotid Bifurcation: plaque formation. Maximum Peak Systolic velocity: 62 cm/sec: End-diastolic velocity 12 cm/sec. 3. Internal Carotid Artery: Plaque description: 3.1. Proximal Segment: Peak systolic velocity 78 cm/sec: End-diastolic velocity 20 cm/sec - % stenosis 0-15% 3.2. Middle Segment: Peak systolic velocity 64 cm/sec: End-diastolic velocity 26 cm/sec - % stenosis 0-15% 3.3. Distal Segment: Peak systolic velocity 74 cm/sec: End-diastolic velocity 29 cm/sec - % stenosis 0-15% 4. External Carotid Artery: No significant focal plaque formation. Peak systolic velocity 75 cm/sec 5. ICA/CCA Ratio: 1.0 VERTEBRAL ARTERIES: 1. Right Vertebral Artery: The right vertebral artery flow direction is antegrade. 2. Left Vertebral Artery: The left vertebral artery flow direction is antegrade. OTHER FINDINGS: 1. Right Brachial Blood pressure: 160 mmHg. 2. Left Brachial Blood pressure: mmHg. IMPRESSION: RIGHT: Duplex scan does not suggest hemodynamically significant stenosis of the right extracranial carotid arteries. LEFT: Duplex scan does not suggest hemodynamically significant stenosis of the left extracranial carotid arteries.
--- NOTE | 2017-04-05 15:17 | CON ---
DATE: 04/05/2017 ATTENDING PHYSICIAN: Ken Oliva MD LOCATION: The patient's room number 670, bed A. REASON FOR THE CONSULTATION: Left-sided weakness. CHIEF COMPLAINT: The patient was brought into [facility] with a history of woke up with inability to speak and left-sided weakness. From neurological point of view, I was called in to evaluate him for further management. HISTORY OF PRESENT ILLNESS: Mr. Mingo Miller is a 71-year-old right-handed male who was known to me from his previous hospitalization, brought into [facility] with a history of inability to speak and left-sided weakness. Initially, the patient was called in through bidirectional video evaluation by Dr. Way in the emergency room, being ruled out for a t-PA candidate because of crossed the window period and being on Eliquis. The patient claims that his speech was impaired for whole day and improved last night. He regained his speech at present now; however, his weakness of his left leg persists with some spasm in his left forearm. during the evaluation by Dr. Way, the patient had some myoclonic jerks activities in the upper extremities on outstretched hand. At present, no myoclonic jerks, no involuntary movements noted at present. He denies headache. He denies visual or bulbar dysfunction at present. PAST MEDICAL HISTORY: Significant for peripheral vascular disease, diabetes, hypertension, stroke, history of left cervical spondylosis with arthropathy and neuropathy. PERSONAL HISTORY: Nonsmoker. No history of alcohol use. ALLERGIES: No known allergies. REVIEW OF SYSTEMS: A 12-point systems have been reviewed; from neuro, new left-sided weakness. MEDICATIONS: Aspirin, Coreg, Crestor, Eliquis, Neurontin, Protonix, Tegretol. PHYSICAL EXAMINATION VITAL SIGNS: Blood pressure 131/91, mean arterial pressure of 104, respiratory rate 16, temperature 97.2, pulse rate of 105 and irregular. NECK: Supple. HEART: Heart sounds irregularly irregular. EXTREMITIES: Left leg externally rotated with 3+ pitting edema. Left arm showed significant distal muscle atrophy with flexion of the left fifth digit. The patient also has significant dystonic posturing of the left hand. NEUROLOGIC: Mental status examination: He is awake, alert, oriented to person, place and time. Speech is clear. Naming, repetition, fluency, comprehension all within normal. Cranial nerve examination: Visual field intact. Right eye exotropia. Pupils reactive to light. Extraocular movements are decreased in all direction. No nystagmus. No facial sensory deficit. Significant facial asymmetry manifesting as flattening of the left nasolabial fold. Gag is intact. Motor examination: He could able to lift both upper extremity against the gravity. No myoclonic jerk or tremor noted. Some significant distal muscle atrophy again noted over the left hand without any fasciculation at rest. Leg; he could able to lift his left lower extremities; however, he has 4/5 weakness on his left side. Deep tendon reflexes: Biceps, brachialis, triceps trace. Both knees are absent. Both ankles are absent. Plantars are upgoing on his left side, right side was downgoing. Sensory examination: Significant bilateral distal sensory motor neuropathy, which is related to his underlying uncontrolled diabetes mellitus. Coordination: Right-sided finger-nose test is intact. Gait is deferred at this time. WORKUP: CT of the head showed a small vessel disease without any acute changes. The patient also did have CTA of the neck and the brain, which was no significant anomaly stenosis noted. BLOOD WORKUP: WBC 7.6, hemoglobin 13.2, hematocrit 38.4, platelet 208. PT 19.3, INR 1.7, PTT 38. Sodium 133, potassium 5.1, chloride 101, bicarbonate 25, BUN 18, creatinine 1.3, GFR is more than 60, glucose 133. Hemoglobin A1c 8.3, calcium 7.8, cholesterol 201. HDL 36 with LDL 117. TSH 1.34 with prolactin 8.3. Urinalysis for drug screen negative. CONCLUSION: Upon reviewing his history and neurological examination, Mr. Mingo Miller has been presenting with new onset of Broca's aphasia with left hemiparesis, which all resulting to right cerebral dysfunction, which probably secondary to cardioembolic phenomena. However, small vessel disease that should not be ruled out because of his underlying risk factors. This could be velázquez radiata versus internal capsule. 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 RECOMMENDATIONS: 1. I agree with aspirin with Plavix for now. 2. Carotid Doppler and MRI is scheduled. 3. Since he has been on Tegretol 200 three times a day with gabapentin 400 three times a day for his pain as well as for his spasm, which has been taking for long-time. I prefer let him to continue with the same dose as he has been taking. The patient should be kept fall precaution and physical therapy should be initiated as soon as possible. Hernan Crews MD
--- NOTE | 2017-04-05 15:53 | MRI ---
PROCEDURE: MRI BRAIN WITHOUT CONTRAST HISTORY: stroke COMPARISON: Brain MRI 01/17/[address] 04/04/2017. TECHNIQUE: Multiplanar, multisequence MR images of the brain were obtained without intravenous contrast enhancement. FINDINGS: HEMORRHAGE: No definitive intracranial hemorrhage is appreciable, however, left frontal bone surgical wire/clip artifact limits the evaluation left frontal region periphery under gradient echo axial imaging of the this area is grossly nonfocal in standard sequences. DWI: No evidence of an acute or early subacute infarction. Note, left frontal bone artifact limits the evaluation left frontal region under diffusion-weighted imaging of the this area is grossly nonfocal in standard sequences. BRAIN PARENCHYMA: Chronic lacune is again seen lateral to the left lateral ventricle frontal horn superiorly. Stable age related neuro degenerative findings are appreciated comprised of diffuse cerebral atrophy chronic microangiopathy once again. There is no mass effect or suspicious extra-axial fluid collection identified. The posterior fossa contents appear stable including the brainstem. VENTRICLES: Unremarkable. No hydrocephalus. CRANIUM: Surgical clip/ wire noted at the left frontal bone/anterior zygoma. ORBITS: Grossly unremarkable. PARANASAL SINUSES/MASTOIDS: Mild multifocal bilateral maxillary, ethmoid and sphenoid sinus disease noted. VASCULAR SYSTEM: Skull base flow voids intact. OTHER FINDINGS: None. IMPRESSION: Stable age related neuro degenerative changes are appreciated, remaining mild and age appropriate. No definitive acute intracranial findings. Left frontal chronic lacune again evident. However, artifact from a surgical clip/ wire at the left frontal bone/ zygoma obscures gradient echo and diffusion-weighted sequences somewhat.
--- NOTE | 2017-04-05 21:36 | CP.PCM.PN ---
Subjective - Date & Time of Evaluation Date of Evaluation: 04/05/17 Time of Evaluation: 21:36 - Subjective Subjective: Patient still continues to have symptoms of neck pain, weakness in the left upper extremity noted. Patient was seen by neurologist. Scheduled to have MRI. Vital signs stable. Examinational is nonspecific except weakness of the left upper extremities Also having weakness and muscle wasting of the left upper dexterity, weakness in the legs noted. Episode of mumbling noted, patient also has some episode of expressive aphasia this morning. We'll continue to monitor her neurologically Objective - Vital Signs/Intake and Output Vital Signs (last 24 hours): Temp Pulse Resp BP Pulse Ox 98.5 F 109 H 20 127/83 95 04/05/17 15:30 04/05/17 15:30 04/05/17 15:30 04/05/17 15:30 04/05/17 15:30 - Medications Medications: Current Medications Apixaban (Eliquis) [address] [facility] Last Admin: 04/05/17 19:07 Dose: 5 mg Aspirin (Aspirin Chewable) [address] [facility] Last Admin: 04/05/17 10:41 Dose: 81 mg Carbamazepine (Tegretol) [address] [facility] Last Admin: 04/05/17 19:07 Dose: 200 mg Carvedilol (Coreg) 6.[address] [facility] Last Admin: 04/05/17 19:07 Dose: 6.25 mg Gabapentin (Neurontin) [address] [facility] Last Admin: 04/05/17 19:07 Dose: 400 mg Sodium Chloride (Sodium Chloride 0.9%) 1,000 mls @ 100 mls/hr IV .Q10H [facility] Last Admin: 04/05/17 20:26 Dose: Not Given Pantoprazole Sodium (Protonix Inj) [address] [facility] Last Admin: 04/05/17 10:41 Dose: 40 mg Pneumococcal Polyvalent Vaccine (Pneumovax 23 Vaccine) 0.5 ml IM .ONCE ONE Stop: 04/07/17 10:01 Rosuvastatin Calcium (Crestor) [address] [facility] Last Admin: 04/04/17 23:21 Dose: 5 mg - Labs Labs: 04/05/17 07:38 04/05/17 07:38 PT 19.3 SECONDS (9.7-12.2) H 04/04/17 11:10 INR 1.7 04/04/17 11:10 APTT 38 SECONDS (21-34) H 04/04/17 11:10
[2017-04-05] MEDS: (Lantus) Insulin Glargine, Recombinant SC SCH (23:13)
[2017-04-06] MEDS: Sodium Chloride 0.9% 1,000 ML IV SCH ×2 (05:26→17:36)
[2017-04-06] MEDS ORDERED: Influenza Vaccine 60 mcg/0.5 mL SYR (4YR UP) IM ONE (10:00)
[2017-04-06] MEDS: (Novolin R) Insulin Human Regular 100 units/ml vial SC SCH ×3 (13:00→21:28)
[2017-04-06] MEDS: (Lantus) Insulin Glargine, Recombinant SC SCH (21:28)
[2017-04-07] MEDS: Sodium Chloride 0.9% 1,000 ML IV SCH ×2 (01:47→12:03)
[2017-04-07] MEDS: (Novolin R) Insulin Human Regular 100 units/ml vial SC SCH ×4 (08:10→21:21)
[2017-04-07] MEDS ORDERED: Pneumococcal 23-Valent Vaccine IM ONE (10:00)
[2017-04-07] MEDS: (Lantus) Insulin Glargine, Recombinant SC SCH (21:19)
[2017-04-08] MEDS: (Novolin R) Insulin Human Regular 100 units/ml vial SC SCH ×4 (08:02→21:56)
[2017-04-08] MEDS: (Lantus) Insulin Glargine, Recombinant SC SCH (21:55)
[2017-04-09] MEDS: (Novolin R) Insulin Human Regular 100 units/ml vial SC SCH ×4 (08:21→22:50)
--- NOTE | 2017-04-09 09:32 | PN ---
DATE: 04/09/2017 NEUROLOGIC PROBLEM: Right cerebral dysfunction when presented with speech arrest and left-sided weakness, which were resolved. PHYSICAL EXAMINATION VITAL SIGNS: Blood pressure 107/69, mean artery pressure of 81, respiratory rate 16, temperature 97.2, pulse rate 108. NEUROLOGIC: The patient is sleeping, arousable. Mentation is normal. Speech is intact. He claims left arm pain is still there and left leg is somewhat weaker than yesterday. He is lying down with head flexed. Rest of examination is unchanged. 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 RECOMMENDATIONS: I would like to do cervical MRI to assess his myelopathy. His pain medication, I think gabapentin dose can be increased. The patient will need a physical therapy. He would like to go home. Physical therapy can be followed as outpatient. Hernan Crews MD
[2017-04-09] MEDS: Pantoprazole 40 mg EC Tab PO SCH (09:34)
--- NOTE | 2017-04-09 09:34 | PN ---
DATE: 04/08/2017 NEUROLOGICAL PROBLEM: Recurrent episode of right cerebral dysfunction manifesting with dysarthria, left arm pain and left leg weakness. PHYSICAL EXAMINATION: VITAL SIGNS: Blood pressure 121/83, mean arterial pressure of 95, respiratory rate 18, temperature 98 degrees Fahrenheit, pulse rate 101 and irregular. NEUROLOGIC: The patient is awake, alert and oriented to person, place and time. Speech is clear. No retrograde or antegrade amnesia. No sign of depression. He follows all commands. He also admitted that he has similar episodes yesterday which lasted for about 7-hour of speech impairment, likely he has episode prior to the admission. He also has left forearm pain and left leg weakness in spite of his treatment. MEDICATIONS: The patient is on anticoagulant as well as antiplatelets. The patient has been getting pain management as well as Neurontin as well as Tegretol as he has been taking at home. WORKUP: MRI of the brain did not show any acute pathology. However, the left frontal lacunar infarct again visible. Left frontal bone artifact is obscuring his underlying pathology. His carotid Doppler showed no significant stenosis on his right as well as left internal carotid artery. IMPRESSION AND PLAN: 1. His recurrent symptoms possible seizures. I have been waiting for his electroencephalographic studies which should be done. 2. The patient's left arm pain all related to his cervical pathology. If needed, the patient should have MRI of the cervical spine to assess his underlying pathology to compare with the previous studies. In the meantime, the patient should get physical therapy for his left left-sided weakness. Continue the present management for his stroke . Hernan Crews MD
[2017-04-09] MEDS ORDERED: Influenza Vaccine 60 mcg/0.5 mL SYR (4YR UP) IM ONE (10:00)
--- NOTE | 2017-04-09 19:59 | CP.PCM.PN ---
Subjective - Date & Time of Evaluation Date of Evaluation: 04/09/17 Time of Evaluation: 19:59 - Subjective Subjective: Patient today feeling better, neck pain noted. Able to participate in physical therapy. But still feeling weakness in the legs. Seen by a neurologist, patient refused MRI. Will continue the physical therapy, patient is also refusing for subacute rehabilitation. Will, possible discharge the patient home with a home PT Objective - Vital Signs/Intake and Output Vital Signs (last 24 hours): Temp Pulse Resp BP Pulse Ox 98.0 F 107 H 20 103/68 95 04/09/17 15:10 04/09/17 15:10 04/09/17 15:10 04/09/17 15:10 04/09/17 15:10 Intake and Output: 04/09/17 04/10/17 18:59 06:59 Intake Total 600 Output Total 800 Balance -200 - Medications Medications: Current Medications Apixaban (Eliquis) 5 mg PO BID [facility] Last Admin: 04/09/17 18:19 Dose: 5 mg Aspirin (Aspirin Chewable) 81 mg PO DAILY [facility] Last Admin: 04/09/17 09:33 Dose: 81 mg Carbamazepine (Tegretol) 200 mg PO TID [facility] Last Admin: 04/09/17 18:19 Dose: 200 mg Carvedilol (Coreg) 6.25 mg PO BID [facility] Last Admin: 04/09/17 18:19 Dose: Not Given Gabapentin (Neurontin) 600 mg PO TID [facility] Last Admin: 04/09/17 18:19 Dose: 600 mg Insulin Glargine (Lantus) 5 unit SC [facility] Last Admin: 04/08/17 21:55 Dose: 5 units Insulin Human Regular (Novolin R) 0 unit SC [facility] PRN Reason: Protocol Last Admin: 04/09/17 18:20 Dose: 2 unit Pantoprazole Sodium (Protonix Ec Tab) 40 mg PO DAILY [facility] Last Admin: 04/09/17 09:34 Dose: 40 mg Rosuvastatin Calcium (Crestor) 5 mg PO HS [facility] Last Admin: 04/08/17 21:55 Dose: 5 mg - Labs Labs: 04/05/17 07:38 04/05/17 07:38 PT 19.3 SECONDS (9.7-12.2) H 04/04/17 11:10 INR 1.7 04/04/17 11:10 APTT 38 SECONDS (21-34) H 04/04/17 11:10
[2017-04-09] MEDS: (Lantus) Insulin Glargine, Recombinant SC SCH (22:49)
--- NOTE | 2017-04-10 07:14 | PN ---
DATE: 04/10/2017 NEUROLOGICAL PROBLEM: Progressive cervical radiculomyelopathy and TIA, which is resolved. PHYSICAL EXAMINATION: VITAL SIGNS: Blood pressure 104/75, mean arterial pressure of 84, respiratory rate 16, temperature afebrile. ASSESSMENT AND PLAN: Still the patient is complaining of left arm pain with spasm and left leg weakness. He uses walker. Yesterday, they requested MRI of the cervical spine, been refused by him. Today, he wants that procedure to be done prior to the discharge. As per his request, I reordered the MRI of the cervical spine and physical therapy should be initiated and continued while he is in the hospital. Tegretol and gabapentin can be adjusted for his pain control. The patient will be followed closely with you. Hernan Crews MD
[2017-04-10] MEDS: (Novolin R) Insulin Human Regular 100 units/ml vial SC SCH ×4 (08:21→22:05)
[2017-04-10] MEDS: Pantoprazole 40 mg EC Tab PO SCH (09:20)
--- NOTE | 2017-04-10 14:13 | MRI ---
PROCEDURE: MR CERVICAL SPINE WITHOUT CONTRAST HISTORY: Myelopathy COMPARISON: 03/08/2016. TECHNIQUE: Multiecho multiplanar sequences were performed through the cervical spine without the use of intravenous contrast. FINDINGS: There is straightening of the cervical spine with loss of normal cervical lordosis. Vertebral alignment is normal. There is no acute fracture or spondylolisthesis. The craniocervical junction is normal. There is mild degenerative osteoarthrosis in the atlantoaxial joint. 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 The cervical cord is normal in contour and caliber. There is focal T2 hyperintensity in the left predominantly dorsal alek cord and C4 and C5. C2-C3: Disc osteophyte complex in conjunction with mild facet arthropathy result in mild left neural foraminal narrowing. No spinal canal stenosis. C3-C4: Broad-based disc osteophyte complex in conjunction with moderate facet arthropathy results in severe bilateral neural foraminal narrowing and mild spinal canal stenosis. No significant interval change. C4-C5: Broad-based disc osteophyte complex indents the ventral thecal sac in conjunction with mild right and moderate left facet arthropathy results in severe right and moderate left neural foraminal stenosis. C5-C6: Broad-based disc osteophyte complex in conjunction with moderate facet arthropathy result in severe bilateral neural foraminal stenosis and moderate spinal canal stenosis. Also noted is a superimposed left foraminal disc protrusion which slightly impinges on the exiting left C6 nerve root. C6-C7: Broad-based disc osteophyte complex in conjunction with mild facet arthropathy result in mild right and severe left neural foraminal stenosis and mild spinal canal stenosis. Also noted is a superimposed left foraminal disc protrusion which likely impinges on the exiting left C7 nerve root. C7-T1: No disc herniation, spinal canal stenosis or neural foraminal narrowing. OTHER FINDINGS: The paraspinous soft tissues are normal. IMPRESSION: 1. Segmental abnormal signal in the left predominantly dorsal hemicord at C4 and C5. The differential considerations include infectious/inflammatory myelitis and demyelination. Clinical correlation is advised and if clinically indicated, MRI of the cervical spine with intravenous contrast may be performed for further characterization. 2. Multilevel degenerative disc disease, worse at C5-6 and C6-7 with left foraminal disc protrusions which likely impinge on the exiting left C6 and C7 nerve roots. Also noted is moderate spinal canal stenosis at C5-6 and mild spinal canal stenosis at C6-7. Important findings were discussed with Dr. Mars Becerra on 04/10/2017 at 1:30 p.m.
[2017-04-10 15:49] LABS: BLOOD UREA NITROGEN 19 mg/dL (9-20); CALCIUM 7.9 mg/dl (8.6-10.4); GFR AFRICAN-AMERICAN > 60; GFR NON-AFRICAN AMERICAN > 60
[2017-04-10] MEDS ORDERED: Gadodiamide 287 mg/ml 20 ml IV ONE (17:46)
[2017-04-10] MEDS: (Lantus) Insulin Glargine, Recombinant SC SCH (22:05)
--- NOTE | 2017-04-11 00:12 | CP.PCM.PN ---
Subjective - Date & Time of Evaluation Date of Evaluation: 04/10/17 Time of Evaluation: 21:00 - Subjective Subjective: From this morning was willing to have the MRI. Later he went for MRI of the neck, which was showing and evidence of some definite intraspinal cord changes. Patient again underwent a MRI of the cervical spine with contrast, the study was nonconclusive. Patient had some suspicious spinal cord lesion nonenhancing. The information currently inconclusive, awaiting full report. I spoke to the neurologist. Patient is currently otherwise having no active symptoms. Weakness noted. Patient is having some difficulty in getting up and going to the bathroom. We advised the patient for subacute rehabilitation, but patient is refusing to continue the current treatment. Physical therapy. Neurology follow-up. Possible discharge plan pending the neurology evaluation and follow-up Objective - Vital Signs/Intake and Output Vital Signs (last 24 hours): Temp Pulse Resp BP Pulse Ox 97.7 F 104 H 20 125/75 98 04/10/17 15:25 04/10/17 15:25 04/10/17 15:25 04/10/17 15:25 04/10/17 15:25 Intake and Output: 04/10/17 04/11/17 18:59 06:59 Intake Total 600 500 Output Total 800 Balance -200 500 - Medications Medications: Current Medications Apixaban (Eliquis) 5 mg PO BID [facility] Last Admin: 04/10/17 18:44 Dose: 5 mg Aspirin (Aspirin Chewable) 81 mg PO DAILY [facility] Last Admin: 04/10/17 09:20 Dose: 81 mg Carbamazepine (Tegretol) 200 mg PO TID [facility] Last Admin: 04/10/17 18:44 Dose: 200 mg Carvedilol (Coreg) 6.25 mg PO BID [facility] Last Admin: 04/10/17 18:45 Dose: 6.25 mg Gabapentin (Neurontin) 600 mg PO TID [facility] Last Admin: 04/10/17 18:44 Dose: 600 mg Insulin Glargine (Lantus) 5 unit SC HS [facility] Last Admin: 04/10/17 22:05 Dose: 5 units Insulin Human Regular (Novolin R) 0 unit SC [facility] PRN Reason: Protocol Last Admin: 04/10/17 22:05 Dose: Not Given Pantoprazole Sodium (Protonix Ec Tab) 40 mg PO DAILY [facility] Last Admin: 04/10/17 09:20 Dose: 40 mg Rosuvastatin Calcium (Crestor) 5 mg PO HS [facility] Last Admin: 04/10/17 22:04 Dose: 5 mg - Labs Labs: 04/05/17 07:38 04/10/17 15:19 PT 19.3 SECONDS (9.7-12.2) H 04/04/17 11:10 INR 1.7 04/04/17 11:10 APTT 38 SECONDS (21-34) H 04/04/17 11:10
--- NOTE | 2017-04-11 03:00 | CP.PCM.PN ---
Subjective - Date & Time of Evaluation Date of Evaluation: 04/06/17 Time of Evaluation: 19:00 - Subjective Subjective: Patient still continues to have symptoms of neck pain, weakness in the left upper extremity noted. Patient was seen by neurologist. Scheduled to have MRI. Vital signs stable. Examinational is nonspecific except weakness of the left upper extremities Also having weakness and muscle wasting of the left upper dexterity, weakness in the legs noted. Episode of mumbling noted, patient also has some episode of expressive aphasia this morning. We'll continue to monitor her neurologically Objective - Vital Signs/Intake and Output Vital Signs (last 24 hours): Temp Pulse Resp BP Pulse Ox 97.4 F L 104 H 20 157/92 H 95 04/10/17 23:40 04/11/17 01:31 04/10/17 23:40 04/10/17 23:40 04/10/17 23:40 Intake and Output: 04/10/17 04/11/17 18:59 06:59 Intake Total 600 500 Output Total 800 Balance -200 500 - Medications Medications: Current Medications Apixaban (Eliquis) 5 mg PO BID [facility] Last Admin: 04/10/17 18:44 Dose: 5 mg Aspirin (Aspirin Chewable) 81 mg PO DAILY [facility] Last Admin: 04/10/17 09:20 Dose: 81 mg Carbamazepine (Tegretol) 200 mg PO TID [facility] Last Admin: 04/10/17 18:44 Dose: 200 mg Carvedilol (Coreg) 6.25 mg PO BID [facility] Last Admin: 04/10/17 18:45 Dose: 6.25 mg Gabapentin (Neurontin) 600 mg PO TID [facility] Last Admin: 04/10/17 18:44 Dose: 600 mg Insulin Glargine (Lantus) 5 unit SC [facility] Last Admin: 04/10/17 22:05 Dose: 5 units Insulin Human Regular (Novolin R) 0 unit SC [facility] PRN Reason: Protocol Last Admin: 04/10/17 22:05 Dose: Not Given Pantoprazole Sodium (Protonix Ec Tab) 40 mg PO DAILY [facility] Last Admin: 04/10/17 09:20 Dose: 40 mg Rosuvastatin Calcium (Crestor) 5 mg PO [facility] Last Admin: 04/10/17 22:04 Dose: 5 mg - Labs Labs: 04/05/17 07:38 04/10/17 15:19 PT 19.3 SECONDS (9.7-12.2) H 04/04/17 11:10 INR 1.7 04/04/17 11:10 APTT 38 SECONDS (21-34) H 04/04/17 11:10
--- NOTE | 2017-04-11 03:01 | CP.PCM.PN ---
Subjective - Date & Time of Evaluation Date of Evaluation: 04/07/17 Time of Evaluation: 17:30 - Subjective Subjective: Patient is feeling somewhat headache, some weakness in the left upper extremity. Patient was refusing MRI. Physical therapy pending. 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 Patient will be needing subacute rehabilitation Continue the current treatment. Will follow the patient Diagnosis 71-year-old male with a history of diabetes hypertension hypercholesterolemia. DVT. History of cervical spinal stenosis, causing nerve compression. Also patient has a weakness in the left upper activity. Contractures noted Objective - Vital Signs/Intake and Output Vital Signs (last 24 hours): Temp Pulse Resp BP Pulse Ox 97.4 F L 104 H 20 157/92 H 95 04/10/17 23:40 04/11/17 01:31 04/10/17 23:40 04/10/17 23:40 04/10/17 23:40 Intake and Output: 04/10/17 04/11/17 18:59 06:59 Intake Total 600 500 Output Total 800 Balance -200 500 - Medications Medications: Current Medications Apixaban (Eliquis) 5 mg PO BID [facility] Last Admin: 04/10/17 18:44 Dose: 5 mg Aspirin (Aspirin Chewable) 81 mg PO DAILY [facility] Last Admin: 04/10/17 09:20 Dose: 81 mg Carbamazepine (Tegretol) 200 mg PO TID [facility] Last Admin: 04/10/17 18:44 Dose: 200 mg Carvedilol (Coreg) 6.25 mg PO BID [facility] Last Admin: 04/10/17 18:45 Dose: 6.25 mg Gabapentin (Neurontin) 600 mg PO TID [facility] Last Admin: 04/10/17 18:44 Dose: 600 mg Insulin Glargine (Lantus) 5 unit SC [facility] Last Admin: 04/10/17 22:05 Dose: 5 units Insulin Human Regular (Novolin R) 0 unit SC [facility] PRN Reason: Protocol Last Admin: 04/10/17 22:05 Dose: Not Given Pantoprazole Sodium (Protonix Ec Tab) 40 mg PO DAILY [facility] Last Admin: 04/10/17 09:20 Dose: 40 mg Rosuvastatin Calcium (Crestor) 5 mg PO [facility] Last Admin: 04/10/17 22:04 Dose: 5 mg - Labs Labs: 04/05/17 07:38 04/10/17 15:19 PT 19.3 SECONDS (9.7-12.2) H 04/04/17 11:10 INR 1.7 04/04/17 11:10 APTT 38 SECONDS (21-34) H 04/04/17 11:10
--- NOTE | 2017-04-11 03:03 | CP.PCM.PN ---
Subjective - Date & Time of Evaluation Date of Evaluation: 04/08/17 Time of Evaluation: 21:40 - Subjective Subjective: Patient is still having weakness in the left upper activity. Pain noted. Seen by neurologist. Patient is receiving carbamazepine. Pain is less. Interval to stand up. Physical therapy pending. On examination: Vital signs stable. Blood sugar is also stable. Patient is having constipation. Labs reviewed MRI pending Assessment and recognition: 71-year-old male admitted with suspected CVA, but nonspecific. Awaiting MRI Objective - Vital Signs/Intake and Output Vital Signs (last 24 hours): Temp Pulse Resp BP Pulse Ox 97.4 F L 104 H 20 157/92 H 95 04/10/17 23:40 04/11/17 01:31 04/10/17 23:40 04/10/17 23:40 04/10/17 23:40 Intake and Output: 04/10/17 04/11/17 18:59 06:59 Intake Total 600 500 Output Total 800 Balance -200 500 - Medications Medications: Current Medications Apixaban (Eliquis) 5 mg PO BID [facility] Last Admin: 04/10/17 18:44 Dose: 5 mg Aspirin (Aspirin Chewable) 81 mg PO DAILY [facility] Last Admin: 04/10/17 09:20 Dose: 81 mg Carbamazepine (Tegretol) 200 mg PO TID [facility] Last Admin: 04/10/17 18:44 Dose: 200 mg Carvedilol (Coreg) 6.25 mg PO BID [facility] Last Admin: 04/10/17 18:45 Dose: 6.25 mg Gabapentin (Neurontin) 600 mg PO TID [facility] Last Admin: 04/10/17 18:44 Dose: 600 mg Insulin Glargine (Lantus) 5 unit SC [facility] Last Admin: 04/10/17 22:05 Dose: 5 units Insulin Human Regular (Novolin R) 0 unit SC [facility] PRN Reason: Protocol Last Admin: 04/10/17 22:05 Dose: Not Given Pantoprazole Sodium (Protonix Ec Tab) 40 mg PO DAILY [facility] Last Admin: 04/10/17 09:20 Dose: 40 mg Rosuvastatin Calcium (Crestor) 5 mg PO [facility] Last Admin: 04/10/17 22:04 Dose: 5 mg - Labs Labs: 04/05/17 07:38 04/10/17 15:19 PT 19.3 SECONDS (9.7-12.2) H 04/04/17 11:10 INR 1.7 04/04/17 11:10 APTT 38 SECONDS (21-34) H 04/04/17 11:10
[2017-04-11] MEDS: (Novolin R) Insulin Human Regular 100 units/ml vial SC SCH ×2 (08:33→12:17)
[2017-04-11] MEDS: Pantoprazole 40 mg EC Tab PO SCH (10:14)
--- NOTE | 2017-04-11 11:38 | EEG ---
DATE: 04/05/2017 This is a 16-channel electroencephalogram of awake and drowsy adult. During the study, photic stimulation was performed. Hyperventilation was not performed. The resting electroencephalogram consists of 20 to 30 microvolt 6 to 7 Hz high theta activities noted at parietal and occipital leads. Intermittent movement artifact and muscle artifact contaminated the background rhythm. This followed with moderate voltage delta activities noted, which consistent with early drowsiness. Intermittent eye opening artifact contaminated the background rhythm. The photic stimulation did not evoke driving response noted at 2 to 20 Hz. IMPRESSION: This is a mildly abnormal electroencephalogram because of persistent slowing throughout the record for his age, suggestive of bilateral cerebral dysfunction. This is probably secondary to metabolic, vascular, or degenerative process. Please correlate the findings with the neurological and radiological studies. Hernan Crews MD
--- NOTE | 2017-04-11 12:08 | PN ---
DATE: NEUROLOGICAL PROBLEMS: 1. Transient ischemic attack manifesting with speech impairment, was resolved. 2. Cervical radiculomyelopathy; the workup showed intramedullary lesion at C4-C5 region, which was not noticeable in previous MRI in the past. SUBJECTIVE: The patient's history is gathered again. The patient stated more than 30 years ago, the patient did have some left arm pain, been seen at [facility]. Initially, the patient was given with carbamazepine at that point. Ever since he has been taking carbamazepine as the way he has been taking. The patient also did develop left leg weakness associating with left leg fracture, being followed with orthopedic surgeon, had surgery in the past and ever since he started to use a cane for the last 1 year he needs walker to use it. The patient has never been worked up for his cervical pathology besides pain management as well as besides carbamazepine treatment and orthopedic followup. The patient did not have any cervical injection, trigger point injection or epidural therapy in the past. CLINICAL EXAMINATION: Left hemiparesis with extraocular ophthalmoplegia raised the possibility of either peripheral or inflammatory/nutritional and infectious process could be the etiology for his cervical spinal cord pathology. The patient did have MRI of cervical spine with and without gadolinium was done. It showed structural pathology at C4-C5 region which was not enhanced with contrast. On comparing with the previous studies and current studies, it shows some subacute chronic ongoing process at that region. The patient's condition has been well discussed with Dr. George (radiologist) and Dr. Oliva as well. The patient is recommended to have blood workup for infectious, inflammatory and nutritional causes for his myelopathy. The patient agreed with my followup management. The patient should be get out of the bed and physical therapy should be initiated. Hernan Crews MD
--- NOTE | 2017-04-11 12:25 | MRI ---
PROCEDURE: MR CERVICAL SPINE WITH AND WITHOUT CONTRAST HISTORY: MRI w/o contrast showed abnormal result COMPARISON: 04/10/2017 and 03/08/2016 TECHNIQUE: Multiecho multiplanar sequences were performed through the cervical spine with and without the use of intravenous contrast. 18 mL Omniscan was injected intravenously. FINDINGS: There is redemonstration of focal T2 hyperintensity in the left dorsal alek cord C4 and C5 with no corresponding enhancement on post-contrast sequences. There is mild associated cord atrophy. Remaining findings as described on the noncontrast MRI. OTHER FINDINGS: None. IMPRESSION: Nonenhancing segmental signal abnormality in the left dorsal alek cord at C4 and C5 with mild associated cord atrophy. Findings are most compatible with chronic myelitis with mild volume loss in the left hemicord at C4-5 which may be related to remote insult, infection/inflammation or demyelination.
[2017-04-11 15:46] VITALS: BP 147/99; PULSE 98; TEMP 98.4; O2SAT 98
--- NOTE | 2017-04-11 15:54 | CP.PCM.PN ---
Subjective - Date & Time of Evaluation Date of Evaluation: 04/11/17 Time of Evaluation: 15:25 - Subjective Subjective: Patents seen today, denies any complaints except weakness No overnight events reported by RN Objective - Vital Signs/Intake and Output Vital Signs (last 24 hours): Temp Pulse Resp BP Pulse Ox 98.4 F 98 H 20 147/99 H 98 04/11/17 15:45 04/11/17 15:45 04/11/17 15:45 04/11/17 15:45 04/11/17 15:45 Intake and Output: 04/11/17 04/11/17 06:59 18:59 Intake Total 500 480 Output Total 700 625 Balance -200 -145 - Medications Medications: Current Medications Apixaban (Eliquis) 5 mg PO BID [facility] Last Admin: 04/11/17 10:14 Dose: 5 mg Aspirin (Aspirin Chewable) 81 mg PO DAILY [facility] Last Admin: 04/11/17 10:14 Dose: 81 mg Carbamazepine (Tegretol) 200 mg PO TID [facility] Last Admin: 04/11/17 14:20 Dose: 200 mg Carvedilol (Coreg) 6.25 mg PO BID [facility] Last Admin: 04/11/17 10:14 Dose: 6.25 mg Gabapentin (Neurontin) 600 mg PO TID [facility] Last Admin: 04/11/17 14:20 Dose: 600 mg Insulin Glargine (Lantus) 5 unit SC [facility] Last Admin: 04/10/17 22:05 Dose: 5 units Insulin Human Regular (Novolin R) 0 unit SC [facility] PRN Reason: Protocol Last Admin: 04/11/17 12:17 Dose: 3 unit Pantoprazole Sodium (Protonix Ec Tab) 40 mg PO DAILY [facility] Last Admin: 04/11/17 10:14 Dose: 40 mg Rosuvastatin Calcium (Crestor) 5 mg PO [facility] Last Admin: 04/10/17 22:04 Dose: 5 mg - Labs Labs: 04/05/17 07:38 04/10/17 15:19 PT 19.3 SECONDS (9.7-12.2) H 04/04/17 11:10 INR 1.7 04/04/17 11:10 APTT 38 SECONDS (21-34) H 04/04/17 11:10 Assessment and Plan - Assessment and Plan (Free Text) Assessment: A/P 71 yr old male with PMHX of Atrial Fibrillation , CHF, Diabetes, Deep Vein Thrombosis, HTN, Hypercholesterolemia, Hyperlipidemia, Peripheral Edema, Chronic Kidney disease admitted fro AMS/weakness MRI spinal canal with and without contrast done -Nonenhancing segmental signal abnormality in the left dorsal alek cord at C4 and C5 with mild associated cord atrophy. Findings are most compatible with chronic myelitis with mild volume loss in the left hemicord at C4-5 which may be related to remote insult, infection/inflammation or demyelination. seen by Dr. Oliva , today D/w Dr. Crews, cleared fro discharge home today after all lab work ordered done for today and f/u with his office in 1-2 week Discharge plan discussed with patient including f/u visit, who understands and agrees with plan [facility]NA service arranged for home PT
--- NOTE | 2017-04-11 19:11 | CP.PCM.DIS ---
Provider - Provider Date of Admission: 04/04/17 12:09 Attending physician: Ken Oliva MD Time Spent in preparation of Discharge (in minutes): 45 Hospital Course - Lab Results Lab Results: Most Recent Lab Values WBC 7.8 K/uL (4.8-10.8) 04/05/17 07:38 RBC 4.11 Mil/uL (4.40-5.90) L 04/05/17 07:38 Hgb 13.3 g/dL (12.0-18.0) 04/05/17 07:38 Hct 38.3 % (35.0-51.0) 04/05/17 07:38 MCV 93.3 fL (80.0-94.0) 04/05/17 07:38 MCH 32.4 pg (27.0-31.0) H 04/05/17 07:38 MCHC 34.7 g/dL (33.0-37.0) 04/05/17 07:38 RDW 13.7 % (11.5-14.5) 04/05/17 07:38 Plt Count 239 K/uL (130-400) 04/05/17 07:38 MPV 8.5 fL (7.2-11.7) 04/05/17 07:38 Neut % (Auto) 62.3 % (50.0-75.0) 04/05/17 07:38 Lymph % (Auto) 27.0 % (20.0-40.0) 04/05/17 07:38 Crook % (Auto) 7.9 % (0.0-10.0) 04/05/17 07:38 Eos % (Auto) 2.4 % (0.0-4.0) 04/05/17 07:38 Baso % (Auto) 0.4 % (0.0-2.0) 04/05/17 07:38 Neut # 4.8 K/uL (1.8-7.0) 04/05/17 07:38 Lymph # 2.1 K/uL (1.0-4.3) 04/05/17 07:38 Crook # 0.6 K/uL (0.0-0.8) 04/05/17 07:38 Eos # 0.2 K/uL (0.0-0.7) 04/05/17 07:38 Baso # 0.0 K/uL (0.0-0.2) 04/05/17 07:38 PT 19.3 SECONDS (9.7-12.2) H 04/04/17 11:10 INR 1.7 04/04/17 11:10 APTT 38 SECONDS (21-34) H 04/04/17 11:10 Sodium 132 mmol/L (132-148) 04/10/17 15:19 Potassium 5.0 mmol/L (3.6-5.2) 04/10/17 15:19 Chloride 97 mmol/L (98-107) L 04/10/17 15:19 Carbon Dioxide 30 mmol/L (22-30) 04/10/17 15:19 Anion Gap 10 (10-20) 04/10/17 15:19 BUN 19 mg/dL (9-20) 04/10/17 15:19 Creatinine 1.1 mg/dL (0.8-1.5) 04/10/17 15:19 Est GFR ( Amer) > 60 04/10/17 15:19 Est GFR (Non-Af Amer) > 60 04/10/17 15:19 POC Glucose (mg/dL) 293 mg/dL (65-110) H 04/11/17 11:44 Random Glucose 237 mg/dL (75-110) H 04/10/17 15:19 Hemoglobin A1c 8.2 % (4.2-6.5) H 04/05/17 07:38 Calcium 7.9 mg/dl (8.6-10.4) L 04/10/17 15:19 Ionized Calcium 4.9 mg/dL (4.80-5.60) 04/05/17 07:38 Total Bilirubin 0.6 mg/dL (0.2-1.3) 04/05/17 07:38 AST 19 U/L (17-59) 04/05/17 07:38 ALT 22 U/L (21-72) 04/05/17 07:38 Alkaline Phosphatase 90 U/L (38-126) 04/05/17 07:38 NT-Pro-B Natriuret Pep 344 pg/mL (0-900) 04/04/17 11:07 Total Protein 7.0 g/dL (6.3-8.3) 04/05/17 07:38 Albumin 3.4 g/dL (3.5-5.0) L 04/05/17 07:38 Globulin 3.6 gm/dL (2.2-3.9) 04/05/17 07:38 Albumin/Globulin Ratio 1.0 (1.0-2.1) 04/05/17 07:38 Triglycerides 100 mg/dL (0-149) D 04/04/17 11:07 Cholesterol 201 mg/dL (0-199) H 04/04/17 11:07 LDL Cholesterol Direct 117 mg/dL (0-129) 04/04/17 11:07 HDL Cholesterol 36 mg/dL (30-70) 04/04/17 11:07 Vitamin B12 526 pg/mL (239-931) 04/11/17 11:54 25-OH Vitamin D Total < 12.8 NG/ML (30.0-100.0) L 04/11/17 11:54 Free T4 0.63 ng/dL (0.78-2.19) L 04/05/17 01:32 TSH 3rd Generation 1.34 mIU/L (0.46-4.68) 04/05/17 01:32 Prolactin 8.3 ng/mL (3.7-17.9) 04/05/17 01:32 Urine Opiates Screen Negative (NEGATIVE) 04/04/17 11:42 Urine Methadone Screen Negative (NEGATIVE) 04/04/17 11:42 Ur Barbiturates Screen Negative (NEGATIVE) 04/04/17 11:42 Carbamazepine 13.2 ug/mL (4.0-12.0) H 04/05/17 07:38 Ur Phencyclidine Scrn Negative (NEGATIVE) 04/04/17 11:42 Ur Amphetamines Screen Negative (NEGATIVE) 04/04/17 11:42 U Benzodiazepines Scrn Negative (NEGATIVE) 04/04/17 11:42 U Oth Cocaine Metabols Negative (NEGATIVE) 04/04/17 11:42 U Cannabinoids Screen Negative (NEGATIVE) 04/04/17 11:42 RPR Nonreactive (NONREACTIVE) 04/11/17 11:54 Blood Type A POSITIVE 04/04/17 11:33 Antibody Screen Negative 04/04/17 11:33 - Hospital Course Hospital Course: chief complaint: Altered mental status History of present illness: 71-year-old male with history of hypertension, diabetes, peripheral vascular disease, DVT, history of left leg nonunion, status post surgery, left upper extremity reflex osteodystrophy, and associated with the neuropathy, cervical spinal disorders with cervical spondylosis, repeated falls in the past came to the emergency room, brought in by ambulance because of altered mental status. This morning patient was not able to move the left upper extremity and lower extremity, and also he was not able to communicate with home health aide, and called ambulance brought him to the emergency room. In the emergency room patient was unconscious, not responding to deep stimuli. He was not able to move the left upper extremity. Because of that initially "stroke alert was called, and he had a CAT scan. But there was no obvious focal deficit. patient awake and he is responding after few hours. Complaining of pain in the left upper extremity, and also significant weakness and wasting noted in the left upper extremity. He is also complaining of weakness in the left lower extremity. He is able to communicate now, he is alert and awake now. Initially he [facility] that [facility], now he is also oriented to place. when I examined in the ER Past medical history: osteoarthritis, history of congestive heart failure, diabetes, deep venous thrombosis, hypertension, hypercholesterolemia, hyperlipidemia, peripheral vascular disease, chronic renal insufficiency, reflex osteodystrophy, cervical spinal stenosis and also left upper extremity weakness. Surgical history: Peripheral arterial intervention, thrombolysis therapy to the left leg, history of left leg nonunion, and grafting intramedullary nailing in the past. Allergies no known drug allergic personal history: Lifelong nonsmoker, nonalcoholic. System: Patient is currently no headache, complaining of some neck pain, weakness in the left upper extremity, and also contractures noted, pain present in the left upper tone throughout the forearm, also complaining of some pain in the left lower extremity, she denies any chest pain or shortness of breath, denies any nausea vomiting On examination: Vital signs stable, mild tachycardia noted. Alert awake oriented 3, he has no functional residual weakness at this time. HEENT PERRLA. Neck minimal stiffness noted. Bilateral good air entry no wheezing or rales noted irregular heart sound nontender abdomen. Bilateral pedal edema noted more on the left side. patient's labs reviewed in Nonspecific. Elevated potassium initially noted, but repeat potassium level is normal CT scan of the chest showing no evidence of any acute findings. CT angiogram also negative. Chest x-ray is nonspecific. 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 Patient now admitted with altered mental status, but now improving, most likely metabolic encephalopathy. Tegretol overdose cannot be ruled out. Will get the blood levels in the morning. Continued IV hydration. Pain management. prognosis is guarded. Initial neurology evaluation was called. After hospitalization, patient was closely monitored in the Course in hospital: Patient got more awake and responding. He did not have any major systemic illness at this time. Having some difficulty in reaching out with the left hand. Patient has a contractures Physical therapy started. Neurologic dilation called in Patient had MRI, and showing no evidence of abnormalities in the cervical spinal area. There is abnormal cord signal. Nonspecific. But patient has a significant arthritis, and associated cervical spondylosis with foraminal narrowing. Patient is being medically cleared, neurologically cleared. Patient does not want to go to subacute rehabilitation. Stable clinically. He will be discharged home today. Medication severity Continue to monitor. Will follow the patient Final diagnosis likely TIA. Cervical spinal disease Associated motor neuropathy. Difficulty in walking. Diabetes hypertension. High cholesterol. Discharge Exam - Head Exam Head Exam: ATRAUMATIC, NORMAL INSPECTION, NORMOCEPHALIC Discharge Plan - Discharge Medications Prescriptions: Ergocalciferol [Drisdol 50,000 Intl Units Cap] 1 cap PO Q7D #14 cap Apixaban [Eliquis] 5 mg PO BID #60 tab Insulin Glargine, Recombina [Lantus] 30 unit SC HS 30 Days unit Gabapentin [Neurontin] 600 mg PO TID #90 tab carBAMazepine [Tegretol] 200 mg PO TID #90 tab - Follow Up Plan Condition: STABLE Disposition: HOME/ ROUTINE Instructions: Transient Ischemic Attack (DC), Heart Failure (DC), How to Stop Smoking (DC), Heart Healthy Diet (DC), Cigarette Smoking and Your Health (GEN), Weakness (GEN), Altered Mental Status (GEN) Additional Instructions: Please f/u with Dr. Vicente office in 1 week f/u with Dr. Crews office in 1-2 week -( f/u visit it is very imprtant - ) call and make appointment - [phone] - address on [address] [place] [address] , [place] continue medication as per med. rec. all prescriptions called in to pharmacy , please grape picker from your pharmacy Referrals: Hernan Crews MD [Staff Provider] - Ken Oliva MD [Staff Provider] -
[2017-04-12 11:58] LABS: % CD4 (T HELPER CELL) 52 Percent (30-61); % CD8 (SUPPRESSOR T CELL) 29 Percent (12-42); ABSOLUTE CD4 CELLS 798 Cells/mcL (490-1740); ABSOLUTE CD8 CELLS 455 Cells/mcL (180-1170); ABSOLUTE LYMPHOCYTES 1544 Cells/mcL (850-3900); HELPER/SUPPRESSOR RATIO 1.75 Ratio (0.86-5.00)
== END 2017-04-11 17:20 | disposition home health service (06) | DRG 69 ==
LOC: C.ER 10:34 → C.9E 12:09 → C.6T 19:52
PROVIDERS: ADMIT Internal Medicine; ATTEND Internal Medicine
DX: G45.9 Transient cerebral ischemic attack, unspecified (principal); G04.91 Myelitis, unspecified; G93.41 Metabolic encephalopathy; E10.41 Type 1 diabetes mellitus with diabetic mononeuropathy; E10.22 Type 1 diabetes mellitus with diabetic chronic kidney disease; I48.91 Unspecified atrial fibrillation; E10.51 Type 1 diabetes mellitus with diabetic peripheral angiopathy without gangrene; M47.12 Other spondylosis with myelopathy, cervical region; R47.01 Aphasia; I13.0 Hypertensive heart and chronic kidney disease with heart failure and stage 1 through stage 4 chronic kidney disease, or unspecified chronic kidney disease; G81.94 Hemiplegia, unspecified affecting left nondominant side; G25.3 Myoclonus; E11.40 Type 2 diabetes mellitus with diabetic neuropathy, unspecified; R29.704 NIHSS score 4; N18.9 Chronic kidney disease, unspecified; M47.22 Other spondylosis with radiculopathy, cervical region; H49.9 Unspecified paralytic strabismus; E78.5 Hyperlipidemia, unspecified; E78.00 Pure hypercholesterolemia, unspecified; E10.42 Type 1 diabetes mellitus with diabetic polyneuropathy; I50.9 Heart failure, unspecified; Z87.891 Personal history of nicotine dependence; Z86.718 Personal history of other venous thrombosis and embolism; Z79.4 Long term (current) use of insulin; Z86.73 Personal history of transient ischemic attack (TIA), and cerebral infarction without residual deficits

== ENCOUNTER 2017-04-16 02:17 | Inpatient (IN) | payer MEDICARE, BC ==
[2017-04-16 02:18] VITALS: PULSE 113; BMI 29.2
[2017-04-16] MEDS ORDERED: Sodium Chloride 0.9% 1,000 ML IV ONE (02:30)
--- NOTE | 2017-04-16 02:31 | C.PDOC ---
History Of Present Illness 71 year old male brought in to the ER via EMS after being found unresponsive, last time seen alert was approximately 12:00 yesterday. Patient has a Hx of left hemiparesis. Patient's blood sugar found to be 39 on the field and given d50. On arrival to ER, patient is alert with slight slurred speech and left sided weakess, hypothermic at 96, denies any pain. Chief Complaint (Nursing): Altered Mental Status History Per: Patient, EMS History/Exam Limitations: None Onset/Duration Of Symptoms: Days Onset Of Symptoms: Cannot Confirm Onset Current Symptoms Are (Timing): Still Present Usual Baseline: Unknown Exacerbating Factor(s): Unknown Character Of Deficits: Left: Weakness Speech Is: Slurred Recent travel outside of the [place]: No Past Medical History Reviewed: Historical Data, Nursing Documentation, Vital Signs Vital Signs: Last Vital Signs Temp 94.9 F L 04/16/17 03:44 Pulse 95 H 04/16/17 03:44 Resp 22 04/16/17 03:44 BP 146/91 H 04/16/17 03:44 Pulse Ox 95 04/16/17 03:48 - Medical History PMH: Arthritis, Atrial Fibrillation (A flutter), CHF, Diabetes, Deep Vein Thrombosis, HTN, Hypercholesterolemia, Hyperlipidemia, Peripheral Edema, Chronic Kidney Disease - [facility] Procedures DILATE R EXT ILIAC ART W DRUG-ELUT INTRALUM, PERC (01/17/15) DILATION OF RIGHT COMMON ILIAC ARTERY, PERCUTANEOUS APPROACH (01/17/15) INSERTION OF INTRALUM DEV INTO INF VENA CAVA, PERC APPROACH (01/17/15) INTRODUCE OTH THROMBOLYTIC IN PERIPH VEIN, PERC (01/17/15) TETANUS TOXOID ADMINIST (12/06/14) Family History: States: Unknown Family Hx - Social History Hx Tobacco Use: No Hx Alcohol Use: No Hx Substance Use: No - Immunization History Hx Tetanus Toxoid Vaccination: Yes (12/06/2014) Hx Influenza Vaccination: Yes Hx Pneumococcal Vaccination: Yes Review Of Systems Constitutional: Negative for: Fever, Chills Eyes: Negative for: Vision Change Cardiovascular: Negative for: Chest Pain, Palpitations Respiratory: Negative for: Shortness of Breath Gastrointestinal: Negative for: Nausea, Vomiting Neurological: Positive for: Weakness, Altered Mental Status Physical Exam - Physical Exam Appears: Other (Alert) Skin: Normal Color, Warm, Dry Head: Atraumatic, Normacephalic Eye(s): bilateral: Normal Inspection, PERRL, EOMI Ear(s): Bilateral: Normal Oral Mucosa: Moist Neck: Normal, No Midline Cervical Tenderness, No Paracervical Tenderness, Supple Chest: Symmetrical, No Tenderness Cardiovascular: Rhythm Regular Respiratory: Normal Breath Sounds, No Rales, No Rhonchi, No Wheezing Gastrointestinal/Abdominal: Soft, No Tenderness Back: No CVA Tenderness Neurological/Psych: Other (Left sided weakness) Extremity: Right: No Drift, Left: Falls Before 10 Secs, Upper: No Drift, Falls Before 10 Secs, Lower: No Drift, Falls Before 10 Secs ED Course And Treatment - Laboratory Results Result Diagrams: 04/16/17 03:16 04/16/17 03:16 ECG: Interpreted By Me, Viewed By Me ECG Rhythm: Sinus Rhythm, 1st Degree HB ECG Interpretation: No Acute Changes Interpretation Of ECG: NSR, 1st degree av block, no acute changes. Rate From EC O2 Sat by Pulse Oximetry: 95 Pulse Ox Interpretation: Normal - CT Scan/US CT Head Other Rad Studies (CT/US): Read By Radiologist, Radiology Report Reviewed CT/US Interpretation: EXAM: CT Head Without Intravenous Contrast. EXAM DATE/ TIME: 04/16/2017 2:26 AM. CLINICAL HISTORY: 71 years old, male; Pain; Headache and other: Low blood sugar; Patient HX: 04-04-17 images sent;. Additional info: Stroke alert. TECHNIQUE: Axial computed tomography images of the head/brain without intravenous contrast. All CT scans at. this facility use one or more dose reduction techniques, viz.: automated exposure control; ma/ kV. adjustment per patient size (including targeted exams where dose is matched to indication; i.e. head);. or iterative reconstruction technique. Coronal and sagittal reformatted images were created and reviewed. COMPARISON: Prior head CT of 04/04/2017. FINDINGS: BRAIN: Physiologic basal ganglia calcification. Areas of low density in the periventricular white matter bilaterally, most likely representing mild. chronic small vessel ischemic changes. No significant acute abnormality identified. No acute hemorrhage seen within the brain. No acute. extra-axial fluid collections visualized. No evidence of significant mass effect within the brain. No CT. findings to suggest an acute, large territorial infarct, however, small or early acute infarcts may not be. visible on CT. VENTRICLES: No evidence of significant hydrocephalus. BONES/JOINTS: Metallic hardware noted in the left facial bones. No acute fractures or other acute. bony abnormality visualized. SOFT TISSUES: Mild, diffuse soft tissue swelling in the scalp superiorly and posteriorly, of uncertain. etiology and clinical significance. Recommend clinical correlation. SINUSES: Minimal mucosal thickening in the right maxillary sinus. MASTOID AIR CELLS: Small amount of fluid in the left mastoid air cells, consistent with minimal left. mastoiditis. IMPRESSION: - No acute findings seen within the brain. - See above for multiple non-emergent findings. Progress Note: Blood work, CT head, EKG, CXR ordered. IV fluids administered. NIHSS Stroke Scale - Date/Time Evaluation Performed Date Performed: 04/16/17 Time Performed: 02:25 When Was NIHSS Performed: Baseline - How Severe is the Stoke Level of Consciousness: 0=Alert LOC to Questions: 0=Both comments correct Best Gaze: 0=Normal Visual: 0=No visual loss Facial: 0=Normal Motor Arm - Left: 2=Falls before 10 sec Motor Arm - Right: 0=No drift Motor Leg - Left: 2=Falls before 5 sec Motor Leg - Right: 0=No drift Limb Ataxia: 1=Present Upper or Lower Sensory: 0=Normal Best Language: 0=No aphasia Dysarthia: 1=Mild to moderate slurring Extinction & Inattention (Neglect): 0=Normal, no object Severity Of Stroke: 5-15= Moderate Stroke Disposition Discussed With : Ken Oliva Counseled Patient/Family Regarding: Diagnosis - Disposition Disposition: HOSPITALIZED Disposition Time: 03:45 Condition: STABLE Forms: [facility] (Telugu) - POA Present On Arrival: Poor Glycemic Control - Clinical Impression Clinical Impression: Hypoglycemia, Hypothermia, Syncope, Diabetes mellitus, Hemiparesis, left - Scribe Statement The provider has reviewed the documentation as recorded by the Scribe Raul Dodge All medical record entries made by the Scribe were at my direction and personally dictated by me. I have reviewed the chart and agree that the record accurately reflects my personal performance of the history, physical exam, medical decision making, and the department course for this patient. I have also personally directed, reviewed, and agree with the discharge instructions and disposition.
--- NOTE | 2017-04-16 03:04 | CT ---
EXAM: CT Head Without Intravenous Contrast EXAM DATE/TIME: 04/16/2017 2:26 AM CLINICAL HISTORY: 71 years old, male; Pain; Headache and other: Low blood sugar; Patient HX: 04-04-17 images sent; Additional info: Stroke alert TECHNIQUE: Axial computed tomography images of the head/brain without intravenous contrast. All CT scans at this facility use one or more dose reduction techniques, viz.: automated exposure control; ma/kV adjustment per patient size (including targeted exams where dose is matched to indication; i.e. head); or iterative reconstruction technique. Coronal and sagittal reformatted images were created and reviewed. COMPARISON: Prior head CT of 04/04/2017. FINDINGS: BRAIN: Physiologic basal ganglia calcification. Areas of low density in the periventricular white matter bilaterally, most likely representing mild chronic small vessel ischemic changes. No significant acute abnormality identified. No acute hemorrhage seen within the brain. No acute extra-axial fluid collections visualized. No evidence of significant mass effect within the brain. No CT findings to suggest an acute, large territorial infarct, however, small or early acute infarcts may not be visible on CT. VENTRICLES: No evidence of significant hydrocephalus. BONES/JOINTS: Metallic hardware noted in the left facial bones. No acute fractures or other acute bony abnormality visualized. SOFT TISSUES: Mild, diffuse soft tissue swelling in the scalp superiorly and posteriorly, of uncertain etiology and clinical significance. Recommend clinical correlation. SINUSES: Minimal mucosal thickening in the right maxillary sinus. MASTOID AIR CELLS: Small amount of fluid in the left mastoid air cells, consistent with minimal left mastoiditis. IMPRESSION: - No acute findings seen within the brain. - See above for multiple non-emergent findings.
[2017-04-16 03:24] LABS: BASO # 0.2 K/uL (0.0-0.2); BASO % 2.7 % (0.0-2.0); EOS # 0.1 K/uL (0.0-0.7); EOS % 0.6 % (0.0-4.0); HEMOGLOBIN 14.7 g/dL (12.0-18.0); LYMPH # 1.2 K/uL (1.0-4.3); LYMPH % 14.1 % (20.0-40.0); MEAN CELL VOLUME 92.8 fL (80.0-94.0); MEAN CORPUSCULAR HEMOGLOBIN 32.1 pg (27.0-31.0); MEAN CORPUSCULAR HGB CONC 34.6 g/dL (33.0-37.0); MEAN PLATELET VOLUME 7.8 fL (7.2-11.7); MONO # 0.3 K/uL (0.0-0.8); MONO % 3.5 % (0.0-10.0); NEUT # 6.7 K/uL (1.8-7.0); NEUT % 79.1 % (50.0-75.0); RBC 4.58 Mil/uL (4.40-5.90); RED CELL DISTRIBUTION WIDTH 13.8 % (11.5-14.5); WHITE BLOOD COUNT 8.4 K/uL (4.8-10.8)
[2017-04-16 03:27] LABS: INR 1.4; PROTHROMBIN TIME 15.5 SECONDS (9.7-12.2)
[2017-04-16 03:33] LABS: SQUAMOUS EPITHIAL < 1 /hpf (0-5); URINE BACTERIA RARE (<OCC); URINE BILIRUBIN NEGATIVE (NEGATIVE); URINE BLOOD NEGATIVE (NEGATIVE); URINE CLARITY Clear (Clear); URINE COLOR Yellow (YELLOW); URINE GLUCOSE (UA) NORMAL (Normal); URINE LEUKOCYTE ESTERASE TRACE Leu/uL (Negative); URINE NITRATE NEGATIVE (NEGATIVE); URINE PROTEIN 1+ mg/dL (NEGATIVE)
[2017-04-16 03:35] LABS: ALB/GLOB RATIO 0.9 (1.0-2.1); ALT/SGPT 24 U/L (21-72); AST/SGOT 37 U/L (17-59); BLOOD UREA NITROGEN 19 mg/dL (9-20); CALCIUM 8.7 mg/dl (8.6-10.4); GFR AFRICAN-AMERICAN > 60; GFR NON-AFRICAN AMERICAN > 60
[2017-04-16 03:43] LABS: BARBITURATES, UR NEGATIVE (NEGATIVE); BENZODIAZEPINES, UR NEGATIVE (NEGATIVE); OPIATES, UR NEGATIVE (NEGATIVE); PHENCYCLIDINE, UR NEGATIVE (NEGATIVE)
[2017-04-16] MEDS ORDERED: Dextrose 50% VIAL Inj (50 ml) IV ONE (07:37)
--- NOTE | 2017-04-16 20:38 | CP.PCM.HP ---
History of Present Illness - History of Present Illness History of Present Illness: chief complaint: Altered mental status History of present illness: 71-year-old malewith history of hypertension, diabetes, peripheral vascular disease, DVT, history of left leg nonunion, status post surgery, left upper extremity reflex osteodystrophy, and associated with the neuropathy, cervical spinal disorders with cervical spondylosis, repeated falls in the past came to the emergency room, brought in by ambulance because of altered mental status. pt was in the hospital few days ago and went home. In the home he was doing well but yesterday he was not feeling well and his nephew found him in the floor and not responding and not answering well. He called ambulance and Brought in to ER. He was found to have low blood sugar and given dextrose and he started responding. He was not able to move the left upper extremity. Because of that initially "stroke alert was called, and he had a CAT scan. But there was no obvious focal deficit. Complaining of pain in the left upper extremity, and also significant weakness and wasting noted in the left upper extremity. He is also complaining of weakness in the left lower extremity. He is able to communicate now, he is alert and awake now. Initially he thought that [facility], now he is also oriented to place. Past medical history: osteoarthritis, history of congestive heart failure, diabetes, deep venous thrombosis, hypertension, hypercholesterolemia, hyperlipidemia, peripheral vascular disease, chronic renal insufficiency, reflex osteodystrophy, cervical spinal stenosis and also left upper extremity weakness. Surgical history: Peripheral arterial intervention, thrombolysis therapy to the left leg, history of left leg nonunion, and grafting intramedullary nailing in the past. Allergies no known drug allergic personal history: Lifelong nonsmoker, nonalcoholic. ROS: Patient is currently no headache, complaining of some neck pain, weakness in the left upper extremity, and also contractures noted, pain present in the left upper tone throughout the forearm, also complaining of some pain in the left lower extremity, she denies any chest pain or shortness of breath, denies any nausea vomiting On examination: Vital signs stable, mild tachycardia noted. Alert awake oriented 3, he has no functional residual weakness at this time. HEENT PERRLA. Neck minimal stiffness noted. Bilateral good air entry no wheezing or rales noted irregular heart sound nontender abdomen. Bilateral pedal edema noted more on the left side. patient's labs reviewed hypoglycemia noted Chest x-ray is nonspecific. 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 Patient now admitted with altered mental status, but now improving, most likely metabolic encephalopathy. Tegretol overdose cannot be ruled out. Will get the blood levels in the morning. Continued IV hydration. Pain management. prognosis is guarded. neuro watch hypoglycemia and metobolic encephalopathy, poor oral intake continue current treatment. avoid glucopenia hold insulin will watch Present on Admission - Present on Admission Any Indicators Present on Admission: No History of DVT/PE: No History of Uncontrolled Diabetes: No Urinary Catheter: No Decubitus Ulcer Present: No Past Patient History - Infectious Disease Hx of Infectious Diseases: None - Past Medical History & Family History Past Medical History?: Yes - Past Social History Smoking Status: Never Smoked - CARDIAC Hx Cardiac Disorders: Yes (A.Fib) Hx Congestive Heart Failure: Yes Hx Hypercholesterolemia: Yes Hx Hypertension: Yes - PULMONARY Hx Respiratory Disorders: No - NEUROLOGICAL Hx Neurological Disorder: Yes Other/Comment: weakness both upper and lower extremiies. Pt on tegretol - HEENT Hx HEENT Problems: Yes Other/Comment: difficulty seeing far - RENAL Hx Chronic Kidney Disease: Yes - ENDOCRINE/METABOLIC Hx Diabetes Mellitus Type 2: Yes - HEMATOLOGICAL/ONCOLOGICAL Hx Blood Disorders: No - INTEGUMENTARY Hx Dermatological Problems: Yes Other/Comment: discoloration BLE - MUSCULOSKELETAL/RHEUMATOLOGICAL Hx Arthritis: Yes - GASTROINTESTINAL Hx Gastrointestinal Disorders: Yes Hx Constipation: Yes - GENITOURINARY/GYNECOLOGICAL Hx Genitourinary Disorders: Yes - PSYCHIATRIC Hx Substance Use: No - SURGICAL HISTORY Hx Surgeries: Yes Hx Angioplasty: Yes Hx Orthopedic Surgery: Yes ([facility] TO MAEVE) - ANESTHESIA Hx Anesthesia: Yes Hx Anesthesia Reactions: No Hx Malignant Hyperthermia: No Meds Allergies/Adverse Reactions: Allergies Allergy/AdvReac Type Severity Reaction Status Date / Time No Known Allergies Allergy Verified 04/16/17 02:34 Results - Vital Signs Recent Vital Signs: Last Vital Signs Temp 98.3 F 04/16/17 15:19 Pulse 107 H 04/16/17 15:19 Resp 20 04/16/17 15:19 BP 108/70 04/16/17 15:19 Pulse Ox 100 04/16/17 15:19 - Labs Result Diagrams: 04/16/17 03:16 04/16/17 03:16 Labs: Laboratory Results - last 24 hr 04/16/17 04/16/17 04/16/17 02:21 03:16 03:16 WBC 8.4 RBC 4.58 Hgb 14.7 Hct 42.5 MCV 92.8 MCH 32.1 H MCHC 34.6 RDW 13.8 Plt Count 342 D MPV 7.8 Neut % (Auto) 79.1 H Lymph % (Auto) 14.1 L [place] % (Auto) 3.5 Eos % (Auto) 0.6 Baso % (Auto) 2.7 H Neut # 6.7 Lymph # 1.2 [place] # 0.3 Eos # 0.1 Baso # 0.2 PT INR APTT Sodium 134 Potassium 5.0 Chloride 99 Carbon Dioxide 27 Anion Gap 13 BUN 19 Creatinine 1.1 Est GFR ( Amer) > 60 Est GFR (Non-Af Amer) > 60 POC Glucose (mg/dL) 102 Random Glucose 92 Calcium 8.7 Total Bilirubin 0.7 AST 37 ALT 24 Alkaline Phosphatase 118 Total Protein 8.6 H Albumin 4.0 Globulin 4.6 H Albumin/Globulin Ratio 0.9 L Urine Color Urine Clarity Urine pH Ur Specific [place] Urine Protein Urine Glucose (UA) Urine Ketones Urine Blood Urine Nitrate Urine Bilirubin Urine Urobilinogen Ur Leukocyte Esterase Urine WBC (Auto) Urine RBC (Auto) Ur Squamous Epith Cells Urine Bacteria Urine Opiates Screen Urine Methadone Screen Ur Barbiturates Screen Ur Phencyclidine Scrn Ur Amphetamines Screen U Benzodiazepines Scrn U Oth Cocaine Metabols U Cannabinoids Screen 04/16/17 04/16/17 04/16/17 03:16 03:20 03:20 WBC RBC Hgb Hct MCV MCH MCHC RDW Plt Count MPV Neut % (Auto) Lymph % (Auto) [place] % (Auto) Eos % (Auto) Baso % (Auto) Neut # Lymph # [place] # Eos # Baso # PT 15.5 H INR 1.4 APTT 33 Sodium Potassium Chloride Carbon Dioxide Anion Gap BUN Creatinine Est GFR ( Amer) Est GFR (Non-Af Amer) POC Glucose (mg/dL) Random Glucose Calcium Total Bilirubin AST ALT Alkaline Phosphatase Total Protein Albumin Globulin Albumin/Globulin Ratio Urine Color Yellow Urine Clarity Clear Urine pH 7.0 Ur Specific [place] 1.018 Urine Protein 1+ H Urine Glucose (UA) Normal Urine Ketones Negative Urine Blood Negative Urine Nitrate Negative Urine Bilirubin Negative Urine Urobilinogen 2.0 Ur Leukocyte Esterase Trace Urine WBC (Auto) 3 Urine RBC (Auto) 3 Ur Squamous Epith Cells < 1 Urine Bacteria Rare Urine Opiates Screen Negative Urine Methadone Screen Negative Ur Barbiturates Screen Negative Ur Phencyclidine Scrn Negative Ur Amphetamines Screen Negative U Benzodiazepines Scrn Negative U Oth Cocaine Metabols Negative U Cannabinoids Screen Negative 04/16/17 04/16/17 04/16/17 03:38 06:50 06:52 WBC RBC Hgb Hct MCV MCH MCHC RDW Plt Count MPV Neut % (Auto) Lymph % (Auto) [place] % (Auto) Eos % (Auto) Baso % (Auto) Neut # Lymph # [place] # Eos # Baso # PT INR APTT Sodium Potassium Chloride Carbon Dioxide Anion Gap BUN Creatinine Est GFR ( Amer) Est GFR (Non-Af Amer) POC Glucose (mg/dL) 79 38 L* 36 L* Random Glucose Calcium Total Bilirubin AST ALT Alkaline Phosphatase Total Protein Albumin Globulin Albumin/Globulin Ratio Urine Color Urine Clarity Urine pH Ur Specific [place] Urine Protein Urine Glucose (UA) Urine Ketones Urine Blood Urine Nitrate Urine Bilirubin Urine Urobilinogen Ur Leukocyte Esterase Urine WBC (Auto) Urine RBC (Auto) Ur Squamous Epith Cells Urine Bacteria Urine Opiates Screen Urine Methadone Screen Ur Barbiturates Screen Ur Phencyclidine Scrn Ur Amphetamines Screen U Benzodiazepines Scrn U Oth Cocaine Metabols U Cannabinoids Screen 04/16/17 04/16/17 07:50 11:21 WBC RBC Hgb Hct MCV MCH MCHC RDW Plt Count MPV Neut % (Auto) Lymph % (Auto) [place] % (Auto) Eos % (Auto) Baso % (Auto) Neut # Lymph # [place] # Eos # Baso # PT INR APTT Sodium Potassium Chloride Carbon Dioxide Anion Gap BUN Creatinine Est GFR ( Amer) Est GFR (Non-Af Amer) POC Glucose (mg/dL) 95 213 H Random Glucose Calcium Total Bilirubin AST ALT Alkaline Phosphatase Total Protein Albumin Globulin Albumin/Globulin Ratio Urine Color Urine Clarity Urine pH Ur Specific [place] Urine Protein Urine Glucose (UA) Urine Ketones Urine Blood Urine Nitrate Urine Bilirubin Urine Urobilinogen Ur Leukocyte Esterase Urine WBC (Auto) Urine RBC (Auto) Ur Squamous Epith Cells Urine Bacteria Urine Opiates Screen Urine Methadone Screen Ur Barbiturates Screen Ur Phencyclidine Scrn Ur Amphetamines Screen U Benzodiazepines Scrn U Oth Cocaine Metabols U Cannabinoids Screen
[2017-04-17 07:05] LABS: ALB/GLOB RATIO 0.9 (1.0-2.1); ALBUMIN 3.4 g/dL (3.5-5.0); ALT/SGPT 22 U/L (21-72); AST/SGOT 23 U/L (17-59); BLOOD UREA NITROGEN 18 mg/dL (9-20); GFR AFRICAN-AMERICAN > 60; GFR NON-AFRICAN AMERICAN 54
[2017-04-17 07:33] LABS: BASO % 0.6 % (0.0-2.0); EOS # 0.2 K/uL (0.0-0.7); HEMOGLOBIN 13.5 g/dL (12.0-18.0); LYMPH % 31.4 % (20.0-40.0); MEAN CELL VOLUME 93.3 fL (80.0-94.0); MEAN CORPUSCULAR HEMOGLOBIN 32.8 pg (27.0-31.0); MEAN CORPUSCULAR HGB CONC 35.2 g/dL (33.0-37.0); MEAN PLATELET VOLUME 8.3 fL (7.2-11.7); MONO # 0.6 K/uL (0.0-0.8); MONO % 9.2 % (0.0-10.0); NEUT # 3.5 K/uL (1.8-7.0); NEUT % 55.8 % (50.0-75.0); NRBC % 0.1 % (0.0-2.0); RBC 4.13 Mil/uL (4.40-5.90); RED CELL DISTRIBUTION WIDTH 13.8 % (11.5-14.5); WHITE BLOOD COUNT 6.3 K/uL (4.8-10.8)
[2017-04-18] MEDS ORDERED: Oxycodone/Acetaminophen 5/325 mg Tab PO ONE (08:29)
--- NOTE | 2017-04-18 08:32 | RAD ---
HISTORY: sob COMPARISON: 04/04/2017 FINDINGS: LUNGS: No active pulmonary disease. PLEURA: No significant pleural effusion identified, no pneumothorax apparent. CARDIOVASCULAR: Cardiomegaly mild and -similar OSSEOUS STRUCTURES: Thoracic spondylosis VISUALIZED UPPER ABDOMEN: Normal. OTHER FINDINGS: None. IMPRESSION: Mild cardiomegaly-similar . No interval cardiopulmonary pathology noted
[2017-04-18] MEDS: (Novolog) Insulin Aspart, Recombinant 100 u/ml 10 ml vial SC SCH ×2 (17:12→21:09)
--- NOTE | 2017-04-18 22:04 | CP.PCM.PN ---
Subjective - Date & Time of Evaluation Date of Evaluation: 04/18/17 Time of Evaluation: 17:06 - Subjective Subjective: Patient having tachycardia, tremor, and weakness. This morning developed shortness of breath. Lasix given.Complaining of pain On examination: Vital signs stable chest good air entry Regular heart sound Abdomen soft Edema present Assessment/condition: 71 maleHypertension, diabetes,tremors, seizure-like activities. Hypoglycemia, metabolic encephalopathy. Improving Continue the current treatment. Physical therapy Objective - Vital Signs/Intake and Output Vital Signs (last 24 hours): Temp Pulse Resp BP Pulse Ox 97.9 F 114 H 18 110/74 98 04/18/17 15:26 04/18/17 17:14 04/18/17 15:26 04/18/17 17:14 04/18/17 15:26 Intake and Output: 04/18/17 04/19/17 18:59 06:59 Output Total 500 250 Balance -500 -250 - Medications Medications: Current Medications Apixaban (Eliquis) 5 mg PO BID [facility] Last Admin: 04/18/17 17:11 Dose: 5 mg Aspirin (Aspirin Chewable) 81 mg PO DAILY [facility] Last Admin: 04/18/17 09:41 Dose: 81 mg Baclofen (Lioresal) 10 mg PO Q12 [facility] Last Admin: 04/18/17 21:54 Dose: 10 mg Carbamazepine (Tegretol) 200 mg PO TID [facility] Last Admin: 04/18/17 17:11 Dose: 200 mg Carvedilol (Coreg) 3.125 mg PO BID [facility] Last Admin: 04/18/17 17:13 Dose: 3.125 mg Insulin Aspart (Novolog) 0 unit SC ACHS [facility] PRN Reason: Protocol Last Admin: 04/18/17 21:09 Dose: Not Given - Labs Labs: 04/17/17 06:43 04/17/17 06:43 PT 15.5 SECONDS (9.7-12.2) H 04/16/17 03:16 INR 1.4 04/16/17 03:16 APTT 33 SECONDS (21-34) 04/16/17 03:16
[2017-04-18] MEDS: Oxycodone/Acetaminophen 5/325 mg Tab PO PRN (22:33)
--- NOTE | 2017-04-19 04:21 | CARD ---
APPROVED REPORT EKG Measurement Heart [id number] <Conclusion> Sinus rhythm with sinus arrhythmia with 1st degree AV block Otherwise normal ECG
[2017-04-19 06:32] LABS: BASO % 0.6 % (0.0-2.0); EOS # 0.1 K/uL (0.0-0.7); EOS % 2.3 % (0.0-4.0); HEMOGLOBIN 13.3 g/dL (12.0-18.0); LYMPH # 1.2 K/uL (1.0-4.3); LYMPH % 21.1 % (20.0-40.0); MEAN CELL VOLUME 93.3 fL (80.0-94.0); MEAN CORPUSCULAR HEMOGLOBIN 32.7 pg (27.0-31.0); MEAN CORPUSCULAR HGB CONC 35.1 g/dL (33.0-37.0); MEAN PLATELET VOLUME 8.4 fL (7.2-11.7); MONO # 0.3 K/uL (0.0-0.8); MONO % 5.5 % (0.0-10.0); NEUT # 3.9 K/uL (1.8-7.0); NEUT % 70.5 % (50.0-75.0); NRBC % 0.1 % (0.0-2.0); RBC 4.08 Mil/uL (4.40-5.90); RED CELL DISTRIBUTION WIDTH 13.7 % (11.5-14.5); WHITE BLOOD COUNT 5.6 K/uL (4.8-10.8)
[2017-04-19 06:47] LABS: ALBUMIN 3.5 g/dL (3.5-5.0); ALT/SGPT 24 U/L (21-72); AST/SGOT 22 U/L (17-59); BLOOD UREA NITROGEN 24 mg/dL (9-20); CALCIUM 8.5 mg/dl (8.6-10.4); GFR AFRICAN-AMERICAN > 60; GFR NON-AFRICAN AMERICAN 54
[2017-04-19] MEDS: (Novolog) Insulin Aspart, Recombinant 100 u/ml 10 ml vial SC SCH ×4 (08:12→21:36)
[2017-04-19] MEDS: Oxycodone/Acetaminophen 5/325 mg Tab PO PRN (08:12)
[2017-04-19] MEDS: GlipiZIDE 2.5 mg Tab PO SCH (17:20)
[2017-04-20] MEDS: Oxycodone/Acetaminophen 5/325 mg Tab PO PRN ×2 (02:36→16:25)
[2017-04-20] MEDS: (Novolog) Insulin Aspart, Recombinant 100 u/ml 10 ml vial SC SCH ×4 (09:18→21:30)
[2017-04-20] MEDS: GlipiZIDE 2.5 mg Tab PO SCH ×2 (09:56→18:06)
[2017-04-21] MEDS: Oxycodone/Acetaminophen 5/325 mg Tab PO PRN ×2 (00:17→13:23)
[2017-04-21] MEDS: (Novolog) Insulin Aspart, Recombinant 100 u/ml 10 ml vial SC SCH ×4 (08:15→22:57)
[2017-04-21] MEDS: GlipiZIDE 2.5 mg Tab PO SCH ×2 (08:15→17:32)
--- NOTE | 2017-04-21 17:09 | CP.PCM.PN ---
Subjective - Date & Time of Evaluation Date of Evaluation: 04/19/17 Time of Evaluation: 17:08 - Subjective Subjective: Patient is feeling slightly better, denies any chest pain, no shortness of breath noted. Tremor noted. Weakness present. No abdominal pain Vital signs reviewed No neck vein distention noted Chest good air entry bilaterally, no wheezing or rales noted CVS regular heart sound, no murmur noted Abdomen soft, nontender. Extremities no pedal edema EELER alert awake oriented -3, no functional neurological deficit Assessment and recommendation: Patient 71 male hypertension diabetes hypercholesteremia. DVT, and coagulation. SVT. Patient admitted with a metabolic encephalopathy hypoglycemia. Continue to monitor. Physical therapy. Objective - Vital Signs/Intake and Output Vital Signs (last 24 hours): Temp Pulse Resp BP Pulse Ox 98.1 F 115 H 20 145/93 H 98 04/21/17 04:43 04/21/17 04:43 04/21/17 04:43 04/21/17 04:43 04/21/17 04:43 Intake and Output: 04/21/17 04/21/17 06:59 18:59 Intake Total 840 Output Total 800 Balance 40 - Medications Medications: Current Medications Apixaban (Eliquis) 5 mg PO BID [facility] Last Admin: 04/21/17 09:28 Dose: 5 mg Aspirin (Aspirin Chewable) 81 mg PO DAILY [facility] Last Admin: 04/21/17 09:28 Dose: 81 mg Baclofen (Lioresal) 10 mg PO Q12 [facility] Last Admin: 04/21/17 09:28 Dose: 10 mg Carbamazepine (Tegretol) 600 mg PO Q8 [facility] Carvedilol (Coreg) 6.25 mg PO BID [facility] Gabapentin (Neurontin) 600 mg PO TID [facility] Last Admin: 04/21/17 13:23 Dose: 600 mg Glipizide (Glucotrol) 2.5 mg PO BIDAC [facility] Last Admin: 04/21/17 08:15 Dose: 2.5 mg Insulin Aspart (Novolog) 0 unit SC ACHS [facility] PRN Reason: Protocol Last Admin: 04/21/17 13:23 Dose: 3 unit Sitagliptin Phosphate (Januvia) 25 mg PO DAILY [facility] Last Admin: 04/21/17 09:27 Dose: 25 mg - Labs Labs: 04/19/17 06:23 04/19/17 06:23 PT 15.5 SECONDS (9.7-12.2) H 04/16/17 03:16 INR 1.4 04/16/17 03:16 APTT 33 SECONDS (21-34) 04/16/17 03:16
--- NOTE | 2017-04-21 17:09 | CP.PCM.PN ---
Subjective - Date & Time of Evaluation Date of Evaluation: 04/20/17 Time of Evaluation: 17:09 - Subjective Subjective: Patient is feeling slightly better, denies any chest pain, no shortness of breath noted. Tremor noted. Weakness present. No abdominal pain Vital signs reviewed No neck vein distention noted Chest good air entry bilaterally, no wheezing or rales noted CVS regular heart sound, no murmur noted Abdomen soft, nontender. Extremities no pedal edema [employer] alert awake oriented -3, no functional neurological deficit Assessment and recommendation: Patient 71 male hypertension diabetes hypercholesteremia. DVT, and coagulation. SVT. Patient admitted with a metabolic encephalopathy hypoglycemia. Continue to monitor. Physical therapy. Objective - Vital Signs/Intake and Output Vital Signs (last 24 hours): Temp Pulse Resp BP Pulse Ox 98.1 F 115 H 20 145/93 H 98 04/21/17 04:43 04/21/17 04:43 04/21/17 04:43 04/21/17 04:43 04/21/17 04:43 Intake and Output: 04/21/17 04/21/17 06:59 18:59 Intake Total 840 Output Total 800 Balance 40 - Medications Medications: Current Medications Apixaban (Eliquis) 5 mg PO BID [facility] Last Admin: 04/21/17 09:28 Dose: 5 mg Aspirin (Aspirin Chewable) 81 mg PO DAILY [facility] Last Admin: 04/21/17 09:28 Dose: 81 mg Baclofen (Lioresal) 10 mg PO Q12 [facility] Last Admin: 04/21/17 09:28 Dose: 10 mg Carbamazepine (Tegretol) 600 mg PO Q8 [facility] Carvedilol (Coreg) 6.25 mg PO BID [facility] Gabapentin (Neurontin) 600 mg PO TID [facility] Last Admin: 04/21/17 13:23 Dose: 600 mg Glipizide (Glucotrol) 2.5 mg PO BIDAC [facility] Last Admin: 04/21/17 08:15 Dose: 2.5 mg Insulin Aspart (Novolog) 0 unit SC ACHS [facility] PRN Reason: Protocol Last Admin: 04/21/17 13:23 Dose: 3 unit Sitagliptin Phosphate (Januvia) 25 mg PO DAILY [facility] Last Admin: 04/21/17 09:27 Dose: 25 mg - Labs Labs: 04/19/17 06:23 04/19/17 06:23 PT 15.5 SECONDS (9.7-12.2) H 04/16/17 03:16 INR 1.4 04/16/17 03:16 APTT 33 SECONDS (21-34) 04/16/17 03:16
--- NOTE | 2017-04-21 17:10 | CP.PCM.PN ---
Subjective - Date & Time of Evaluation Date of Evaluation: 04/21/17 Time of Evaluation: 17:09 - Subjective Subjective: Complaint of increasing left arm pain, weakness. At times he is having increasing shaking noted, and also becoming generalized. During the time he become more agitated, sweating, hypertensive, tachycardic during the time. Sometimes seizure activities cannot be ruled out I spoke to the neurologist. We'll get a neurology evaluation. We'll increase the Tegretol dosage, and monitor the level. Continue the current treatment. Seizure activity is likely. We'll follow-up the patient Objective - Vital Signs/Intake and Output Vital Signs (last 24 hours): Temp Pulse Resp BP Pulse Ox 98.1 F 115 H 20 145/93 H 98 04/21/17 04:43 04/21/17 04:43 04/21/17 04:43 04/21/17 04:43 04/21/17 04:43 Intake and Output: 04/21/17 04/21/17 06:59 18:59 Intake Total 840 Output Total 800 Balance 40 - Medications Medications: Current Medications Apixaban (Eliquis) 5 mg PO BID [facility] Last Admin: 04/21/17 09:28 Dose: 5 mg Aspirin (Aspirin Chewable) 81 mg PO DAILY [facility] Last Admin: 04/21/17 09:28 Dose: 81 mg Baclofen (Lioresal) 10 mg PO Q12 [facility] Last Admin: 04/21/17 09:28 Dose: 10 mg Carbamazepine (Tegretol) 600 mg PO Q8 [facility] Carvedilol (Coreg) 6.25 mg PO BID [facility] Gabapentin (Neurontin) 600 mg PO TID [facility] Last Admin: 04/21/17 13:23 Dose: 600 mg Glipizide (Glucotrol) 2.5 mg PO BIDAC [facility] Last Admin: 04/21/17 08:15 Dose: 2.5 mg Insulin Aspart (Novolog) 0 unit SC ACHS [facility] PRN Reason: Protocol Last Admin: 04/21/17 13:23 Dose: 3 unit Sitagliptin Phosphate (Januvia) 25 mg PO DAILY [facility] Last Admin: 04/21/17 09:27 Dose: 25 mg - Labs Labs: 04/19/17 06:23 04/19/17 06:23 PT 15.5 SECONDS (9.7-12.2) H 04/16/17 03:16 INR 1.4 04/16/17 03:16 APTT 33 SECONDS (21-34) 04/16/17 03:16
--- NOTE | 2017-04-22 07:18 | CP.PCM.CON ---
History of Present Illness - History of Present Illness History of Present Illness: CONSULT DICTATED FALL / LOC/LEFT SIDED MOVEMENT RESPONDED WELL WITH GLUCOSE FOCAL Vs PARTIAL COMPLEX SEIZURES UP TEGRETOL - FEELS GREAT FOLLOW LEVEL PT/DVT PROPHYLAXIS Past Patient History - Infectious Disease Hx of Infectious Diseases: None - Past Medical History & Family History Past Medical History?: Yes - Past Social History Smoking Status: Never Smoked - CARDIAC Hx Cardiac Disorders: Yes (A.Fib) Hx Congestive Heart Failure: Yes Hx Hypercholesterolemia: Yes Hx Hypertension: Yes - PULMONARY Hx Respiratory Disorders: No - NEUROLOGICAL Hx Neurological Disorder: Yes Other/Comment: weakness both upper and lower extremiies. Pt on tegretol - HEENT Hx HEENT Problems: Yes Other/Comment: difficulty seeing far - RENAL Hx Chronic Kidney Disease: Yes - ENDOCRINE/METABOLIC Hx Diabetes Mellitus Type 2: Yes - HEMATOLOGICAL/ONCOLOGICAL Hx Blood Disorders: No - INTEGUMENTARY Hx Dermatological Problems: Yes Other/Comment: discoloration BLE - MUSCULOSKELETAL/RHEUMATOLOGICAL Hx Arthritis: Yes - GASTROINTESTINAL Hx Gastrointestinal Disorders: Yes Hx Constipation: Yes - GENITOURINARY/GYNECOLOGICAL Hx Genitourinary Disorders: Yes - PSYCHIATRIC Hx Substance Use: No - SURGICAL HISTORY Hx Surgeries: Yes Hx Angioplasty: Yes Hx Orthopedic Surgery: Yes ([facility] TO MAEVE) - ANESTHESIA Hx Anesthesia: Yes Hx Anesthesia Reactions: No Hx Malignant Hyperthermia: No Meds Allergies/Adverse Reactions: Allergies Allergy/AdvReac Type Severity Reaction Status Date / Time No Known Allergies Allergy Verified 04/16/17 02:34 - Medications Medications: Current Medications Apixaban (Eliquis) 5 mg PO BID [facility] Last Admin: 04/21/17 17:32 Dose: 5 mg Aspirin (Aspirin Chewable) 81 mg PO DAILY [facility] Last Admin: 04/21/17 09:28 Dose: 81 mg Baclofen (Lioresal) 10 mg PO Q12 [facility] Last Admin: 04/21/17 21:33 Dose: 10 mg Carbamazepine (Tegretol) 600 mg PO Q8 [facility] Carvedilol (Coreg) 6.25 mg PO BID [facility] Last Admin: 04/21/17 18:00 Dose: Not Given Gabapentin (Neurontin) 300 mg PO TID [facility] Last Admin: 04/21/17 20:46 Dose: 300 mg Glipizide (Glucotrol) 2.5 mg PO BIDAC [facility] Last Admin: 04/21/17 17:32 Dose: 2.5 mg Insulin Aspart (Novolog) 0 unit SC ACHS [facility] PRN Reason: Protocol Last Admin: 04/21/17 22:57 Dose: Not Given Sitagliptin Phosphate (Januvia) 25 mg PO DAILY [facility] Last Admin: 04/21/17 09:27 Dose: 25 mg Results - Vital Signs Recent Vital Signs: Last Vital Signs Temp 97.3 F L 04/22/17 04:10 Pulse 74 04/22/17 04:10 Resp 20 04/22/17 04:10 BP 107/60 04/22/17 04:10 Pulse Ox 97 04/22/17 04:10 - Labs Result Diagrams: 04/19/17 06:23 04/19/17 06:23 Labs: Laboratory Results - last 24 hr 04/21/17 04/21/17 04/21/17 11:20 16:33 21:20 POC Glucose (mg/dL) 261 H 165 H 194 H Carbamazepine 04/22/17 04/22/17 06:21 06:34 POC Glucose (mg/dL) 175 H Carbamazepine 10.9
[2017-04-22] MEDS: GlipiZIDE 2.5 mg Tab PO SCH ×2 (08:27→17:52)
[2017-04-22] MEDS: (Novolog) Insulin Aspart, Recombinant 100 u/ml 10 ml vial SC SCH ×4 (08:27→21:51)
--- NOTE | 2017-04-23 08:16 | CON ---
DATE: 04/22/2017 ATTENDING PHYSICIAN: Dr. Ken Oliva. The patient's room number is 656, bed B. REASON FOR THE CONSULTATION: Focal seizures. CHIEF COMPLAINT: The patient was brought into [facility] with a history of change in mental status, confusion, speech impairment with tremor on his left side. From neurological point of view, I was called to evaluate him for further management. HISTORY OF PRESENT ILLNESS: Mr. Mingo Miller is a 71-year-old right-handed male who has been recently discharged from the [facility] after extensive workup of his cervical myelopathy and his stroke process. At present at home, he felt not feeling well with speech impairment and tremor on his left side, which was witnessed and documented as per his nephew. He was found on the floor and not responding well. At the scene, the patient was found to have blood sugar that was low and Dextrose was given. The patient started responding well with that. PAST MEDICAL HISTORY: Osteoarthritis, DVT, hypertension, hypercholesterolemia, dyslipidemia, peripheral vascular disease, chronic renal disease, reflex osteodystrophy, cervical myelopathy, and left-sided weakness. PAST SURGICAL HISTORY: He had an arterial intervention of his left leg, history of left leg fracture in the past. In the past, he was treated in [facility], followed by orthopedic physician for his left leg trauma. For his left arm pain, he was treated at [facility] more than 30 years ago, has been treated with carbamazepine and he was stable. The gabapentin dose was increased during the previous admission because of his pain control. REVIEW OF SYSTEMS: A 12-point system has been reviewed from neuro, change in mental status and left-sided weakness. MEDICATIONS: Aspirin, Coreg, Eliquis, Glucotrol, Januvia, Nasarel, gabapentin, Tegretol, and NovoLog. PHYSICAL EXAMINATION: VITAL SIGNS: Blood pressure 107/60, mean arterial pressure 75, respiratory rate 16, temperature afebrile. NECK: Supple. No carotid bruit. HEART: Heart sounds regular. CHEST: Fair air entry. EXTREMITIES: Left leg externally rotated and edematous. NEUROLOGIC: Mental status examination, he is awake, alert, and oriented to person, place, and time. Speech is clear. Naming, repetition, fluency, comprehension are all within normal. mentation and everything was improved. MOTOR EXAMINATION: He was not able to lift his left arm as good as before, mild weakness and pain over the left forearm region. Left leg, he could not able to lift against the gravity; however, some weakness to compare with the right side. Deep tendon reflexes are absent. Plantars are equivocal response on his both sides. Sensory examination: Significantly decreased posterior column dysfunction affecting both lower extremities. He could not appreciate his toe moving. No cortical sensory loss. LABORATORY WORKUP: WBC 5.6, hemoglobin 13.3, hematocrit 38.0, and platelets 274. Sodium 135, potassium 4.7, chloride 96, bicarbonate 28, BUN 24, creatinine 1.3, GFR is more than 60, and glucose 206. RADIOLOGY: CT of the head has been reviewed, which does not show any acute pathology except small vessel disease. CONCLUSION: 1. Mr. Mingo Miller had been presenting with hypoglycemic episode associating with unconsciousness and left-sided weakness, which has been reversed by administration of glucose. However, from neurological point of view,seizures should be ruled out. 2. The patient has been doing well. On increasing his Tegretol dose, he feels the first night he slept excellent. Continue Tegretol 600 mg 3 times a day and level should be checked today. 3. Continue gabapentin as he has been taking. The patient should continue deep venous thrombosis prophylaxis. Continue all medications as he has been taking. The patient should get out of the bed and physical therapy should be initiated. Depending on his presentation, his doses will be adjusted. The patient should also get EEG during this admission. Hernan Crews MD
[2017-04-23] MEDS: GlipiZIDE 2.5 mg Tab PO SCH ×2 (08:27→17:18)
[2017-04-23] MEDS: (Novolog) Insulin Aspart, Recombinant 100 u/ml 10 ml vial SC SCH ×4 (08:27→21:21)
--- NOTE | 2017-04-23 08:38 | PN ---
DATE: 04/23/2017 TIME OF EVALUATION: 07:05 a.m. NEUROLOGICAL PROBLEMS: Partial complex seizure manifesting with left hemiparesis and speech impairment with disorientation. PHYSICAL EXAMINATION: VITAL SIGNS: Blood pressure 106/72, mean artery pressure of 83, respiratory rate 16, temperature 97.6, and pulse rate 99 regular. NEUROLOGIC: The patient is awake, alert, oriented to person, place and time. No new episodes happened while he was in the hospital. Mild hemiparesis, which is old. He is able to move all four extremities against the gravity. Mild weakness on the left side as I stated above. His workup electroencephalogram has been reviewed. No acute pathology is noted; however, mild slowing throughout the record. The patient can be continued with carbamazepine with this high dose, the patient has been comfortable. Level has to be checked and has to be stabilized. Deep venous thrombosis prophylaxis and getting him out of bed. If medically stable, the patient can be discharged and followup visit as outpatient. Hernan Crews MD
--- NOTE | 2017-04-23 10:07 | EEG ---
DATE: 04/22/2017 This is a 16-channel electroencephalogram of awake and drowsy adult. During the study, photic stimulation was performed. Hyperventilation was not performed. The resting electroencephalogram consists of 20 to 30 microvolt, diffuse 5 to 6 Hz theta activities, superimposed with 2 to 3 Hz of delta activity seen intermittently. Some movement artifact contaminated the background intermittently. The photic stimulation did not evoke driving response noted at 2 to 20 Hz. IMPRESSION: This is an abnormal electroencephalogram because of the persistent slowing throughout the record suggestive of bilateral cerebral dysfunction. This is probably secondary to metabolic, vascular or degenerative process. Please correlate the findings with the neurological and radiological studies. Hernan Crews MD
--- NOTE | 2017-04-23 12:22 | PCM.FALL ---
Post Fall Progress Note - Post Fall Fall Date: 04/23/17 Fall Time: 11:59 Description of Fall: unwitnessed fall - Post Fall Exam Vital Sign: Temp Pulse Resp BP Pulse Ox 97.7 F 106 H 20 120/83 100 04/23/17 08:16 04/23/17 08:16 04/23/17 08:16 04/23/17 08:16 04/23/17 08:16 Skull Exam: Negative for: Scalp wound, Scalp hematoma, Scalp depression, Ridge in skull Eye Exam: Positive for: Pupils equal. Negative for: Pupils reactive Ear Exam: Negative for: Discharge, Bleeding Nose Exam: Negative for: Discharge, Bleeding Skin Exam: Negative for: Colour, Lacerations, Grazes, Bruising Mouth Exam: Negative for: Tongue bitten, Teeth dislodge Neck Exam: Negative for: Tenderness, Tingling, Weakness Spinal Exam: Negative for: Tenderness, Tingling, Weakness Chest Exam: Negative for: Difficulty breathing, Tenderness in collar bones, Tenderness in ribs Abdomen Exam: Negative for: Tenderness Pelvic Exam: Negative for: Tenderness, Hematuria Arm Exam: Negative for: Deformity, Alteration in range of movement Leg Exam: Negative for: Deformity, Alteration in range of movement Impression/Plan: Assessment: Patient with unwitnessed fall and stated that he hit his head. Patient witnessed with physical therapy with unsteady gait by nursing staff earlier today. Patient tremulous at baseline. Mental status intact. Patient stated that he was trying to get up to go to the bathroom. Vitals as follows: 97.9 degrees, 116 pulse, 134/78 BP, 214 blood glucose Plan: Head CT w.o. contrast ordered. No acute intracranial hemorrhage.
--- NOTE | 2017-04-23 13:30 | CT ---
PROCEDURE: CT HEAD WITHOUT CONTRAST. HISTORY: code star, unwitnessed fall COMPARISON: Noncontrast head CT performed 04/16/17 TECHNIQUE: Axial computed tomography images were obtained through the head/brain without intravenous contrast. Radiation dose: Total exam DLP = 889.18 mGy-cm. This CT exam was performed using one or more of the following dose reduction techniques: Automated exposure control, adjustment of the mA and/or kV according to patient size, and/or use of iterative reconstruction technique. FINDINGS: HEMORRHAGE: No intracranial hemorrhage. BRAIN: Diffuse atrophy with prominence of the ventricles and sulci noted. No mass effect or edema. Bilateral basal ganglia calcifications. Scattered periventricular and subcortical white matter hypodensities, which are nonspecific, but often seen with chronic microvascular ischemic disease. Please note that MRI with diffusion imaging is more sensitive in the detection of acute ischemic event. VENTRICLES: No hydrocephalus. CALVARIUM: Unremarkable. PARANASAL SINUSES: Unremarkable as visualized. No significant inflammatory changes. MASTOID AIR CELLS: Small fluid, left mastoid air cells. The right mastoid air cells appear clear. OTHER FINDINGS: Punctate metallic density at the level of the anterior wall left maxillary sinus. IMPRESSION: Generalized atrophy. Nonspecific white matter changes. Small fluid, left mastoid air cells. Punctate metallic density at the level the anterior wall left maxillary sinus.
--- NOTE | 2017-04-23 21:50 | CP.PCM.PN ---
Subjective - Date & Time of Evaluation Date of Evaluation: 04/23/17 Time of Evaluation: 21:48 - Subjective Subjective: Patient is morning had a fall. When I saw the patient he was more awake and responding. He was having less shaking, and also less tremor noted. Currently his medication was optimized as per the neurologist. He did not have any chest pain or shortness of breath or tachycardia. Blood pressure was stable. He was able to lift the legs. Vital signs otherwise stable. Denies any chest pain. Likely otherwise nonspecific. Patient still continues to have a pain on the left upper extremity. After the fall, the nurse reported that he was having increasing shaking, and also generalized a tremor. Most likely patient become more anxious, and the doing that time he become more muscle tremor noted. CAT scan reviewed. Nonspecific. Will continue to monitor. I suggest the patient for subacute rehabilitation, but patient is refusing. Blood sugar is controlled well with oral medication and will follow the patient Objective - Vital Signs/Intake and Output Vital Signs (last 24 hours): Temp Pulse Resp BP Pulse Ox 97.6 F 110 H 20 125/84 99 04/23/17 15:48 04/23/17 16:01 04/23/17 15:48 04/23/17 15:48 04/23/17 15:48 Intake and Output: 04/23/17 04/24/17 18:59 06:59 Intake Total 600 Output Total 800 200 Balance -200 -200 - Medications Medications: Current Medications Apixaban (Eliquis) 5 mg PO BID [facility] Last Admin: 04/23/17 17:19 Dose: 5 mg Aspirin (Aspirin Chewable) 81 mg PO DAILY [facility] Last Admin: 04/23/17 10:13 Dose: 81 mg Baclofen (Lioresal) 10 mg PO Q12 [facility] Last Admin: 04/23/17 21:20 Dose: 10 mg Carbamazepine (Tegretol) 600 mg PO Q8H [facility] Last Admin: 04/23/17 17:19 Dose: 600 mg Carvedilol (Coreg) 6.25 mg PO BID [facility] Last Admin: 04/23/17 17:19 Dose: 6.25 mg Gabapentin (Neurontin) 300 mg PO TID [facility] Last Admin: 04/23/17 17:19 Dose: 300 mg Glipizide (Glucotrol) 2.5 mg PO BIDAC [facility] Last Admin: 04/23/17 17:18 Dose: 2.5 mg Insulin Aspart (Novolog) 0 unit SC ACHS [facility] PRN Reason: Protocol Last Admin: 04/23/17 21:21 Dose: Not Given Sitagliptin Phosphate (Januvia) 25 mg PO DAILY [facility] Last Admin: 04/23/17 10:13 Dose: 25 mg - Labs Labs: 04/19/17 06:23 04/19/17 06:23 PT 15.5 SECONDS (9.7-12.2) H 04/16/17 03:16 INR 1.4 04/16/17 03:16 APTT 33 SECONDS (21-34) 04/16/17 03:16
[2017-04-24] MEDS: (Novolog) Insulin Aspart, Recombinant 100 u/ml 10 ml vial SC SCH ×4 (08:05→21:39)
[2017-04-24] MEDS: GlipiZIDE 2.5 mg Tab PO SCH ×2 (08:05→17:39)
[2017-04-25] MEDS: GlipiZIDE 2.5 mg Tab PO SCH ×2 (08:04→18:13)
[2017-04-25] MEDS: (Novolog) Insulin Aspart, Recombinant 100 u/ml 10 ml vial SC SCH ×4 (08:04→21:23)
--- NOTE | 2017-04-25 09:36 | RAD ---
PROCEDURE: HISTORY: left forearm---r/o fracture; post-fall yesterday COMPARISON: None TECHNIQUE: Four views FINDINGS: No fracture or dislocation. Posterior olecranon triceps insertional enthesophyte noted IMPRESSION: No fracture
[2017-04-25 16:41] VITALS: RESP 20
[2017-04-26] MEDS: GlipiZIDE 2.5 mg Tab PO SCH ×2 (08:03→18:28)
[2017-04-26] MEDS: (Novolog) Insulin Aspart, Recombinant 100 u/ml 10 ml vial SC SCH ×4 (08:03→21:31)
--- NOTE | 2017-04-26 11:58 | PN ---
DATE: 04/26/2017 NEUROLOGIC PROBLEM: Cervical myelopathy manifesting with left hemiparesis. The patient had an episode of fall which was probably secondary to hypoglycemic episode versus toxic level of Tegretol. PHYSICAL EXAMINATION: VITAL SIGNS: Blood pressure 138/94, mean arterial pressure of 108, respiratory rate 18, temperature afebrile with pulse rate of 96. The patient went to bed, however, he woke up at 4 o' clock, he did not get sleep back. His weakness is unchanged. No tremor. No weakness on his left side. The patient's Tegretol level is subtherapeutic. The patient is tolerating 400 mg 3 times a day with current gabapentin dose. The patient should get out of the bed and physical therapy should be continued. The patient definitely have to have neurosurgical evaluation to assess his neurological status which can help for near future as well as he may need decompression to avoid further neurological devastation. The patient's condition will be discussed with Dr. Oliva. . Hernan Crews MD
--- NOTE | 2017-04-26 15:18 | CP.PCM.PN ---
Subjective - Date & Time of Evaluation Date of Evaluation: 04/26/17 Time of Evaluation: 15:17 - Subjective Subjective: PT CLEARED FOR D/C TODAY PER DR. WALKER. PT FINALLY AGREED TO [facility] FOR PHYSICAL THERAPY FOR AT LEAST ONE WEEK. REFERRED [place] [facility] WALKER TO FOLLOW THE PT WHILE HE IS THERE. MEDICATION REC COMPLETED SO PT CAN CONTINUE TEGRETOL DOSE PER NEURO AND GABAPENTIN PER MD RECOMMENDATIONS. PT TO BE D/C TO [facility] ONCE BED AVAILABLE. NO FURTHER ORDERS. -PLACE UNDER THE SERVICE OF DR. WALKER WHILE AT [facility]---CALL DR. WALKER UPON ARRIVAL TO [facility] FOR ADMITTING ORDERS AND WITH BED ASSIGNMENT. -CONTINUE ALL MEDICATIONS PER THE MED REC FORM---CHANGES CAN BE MADE BY DR WALKER. -PHYSICAL THERAPY TOLERATED. -FALL PRECAUTIONS PER FACILITY PROTOCOL. -FOR FURTHER ORDERS, CONTACT DR. WALKER'S OFFICE. Objective - Vital Signs/Intake and Output Vital Signs (last 24 hours): Temp Pulse Resp BP Pulse Ox 98 F 98 H 20 106/74 100 04/26/17 10:02 04/26/17 11:20 04/26/17 10:02 04/26/17 10:02 04/26/17 10:02 Intake and Output: 04/26/17 04/26/17 06:59 18:59 Intake Total 500 380 Output Total 500 Balance 500 -120 - Medications Medications: Current Medications Apixaban (Eliquis) 5 mg PO BID [facility] Last Admin: 04/26/17 09:14 Dose: 5 mg Aspirin (Aspirin Chewable) 81 mg PO DAILY [facility] Last Admin: 04/26/17 09:14 Dose: 81 mg Carbamazepine (Tegretol) 400 mg PO Q8H [facility] Last Admin: 04/26/17 13:02 Dose: 400 mg Carvedilol (Coreg) 6.25 mg PO BID [facility] Last Admin: 04/26/17 09:14 Dose: 6.25 mg Gabapentin (Neurontin) 300 mg PO TID [facility] Last Admin: 04/26/17 13:01 Dose: 300 mg Glipizide (Glucotrol) 2.5 mg PO BIDAC [facility] Last Admin: 04/26/17 08:03 Dose: 2.5 mg Insulin Aspart (Novolog) 0 unit SC ACHS [facility] PRN Reason: Protocol Last Admin: 04/26/17 12:15 Dose: 1 unit Sitagliptin Phosphate (Januvia) 25 mg PO DAILY [facility] Last Admin: 04/26/17 09:14 Dose: 25 mg - Labs Labs: 04/19/17 06:23 04/19/17 06:23 PT 15.5 SECONDS (9.7-12.2) H 04/16/17 03:16 INR 1.4 04/16/17 03:16 APTT 33 SECONDS (21-34) 04/16/17 03:16
[2017-04-26 16:14] VITALS: BP 93/62; PULSE 118; TEMP 98.2; O2SAT 98
== END 2017-04-26 23:17 | disposition home health service (06) | DRG 637 ==
LOC: C.ER 02:17 → C.9E 03:56 → C.6T 06:02
PROVIDERS: ADMIT Internal Medicine; ATTEND Internal Medicine
DX: E11.649 Type 2 diabetes mellitus with hypoglycemia without coma (principal); G93.41 Metabolic encephalopathy; G40.209 Localization-related (focal) (partial) symptomatic epilepsy and epileptic syndromes with complex partial seizures, not intractable, without status epilepticus; G81.94 Hemiplegia, unspecified affecting left nondominant side; M48.02 Spinal stenosis, cervical region; E11.22 Type 2 diabetes mellitus with diabetic chronic kidney disease; E11.40 Type 2 diabetes mellitus with diabetic neuropathy, unspecified; I13.0 Hypertensive heart and chronic kidney disease with heart failure and stage 1 through stage 4 chronic kidney disease, or unspecified chronic kidney disease; I47.1 Supraventricular tachycardia; E11.51 Type 2 diabetes mellitus with diabetic peripheral angiopathy without gangrene; I48.91 Unspecified atrial fibrillation; I50.9 Heart failure, unspecified; I48.92 Unspecified atrial flutter; E78.00 Pure hypercholesterolemia, unspecified; N18.9 Chronic kidney disease, unspecified; M47.812 Spondylosis without myelopathy or radiculopathy, cervical region; T42.1X1A Poisoning by iminostilbenes, accidental (unintentional), initial encounter; R29.6 Repeated falls; Z79.4 Long term (current) use of insulin; Z86.718 Personal history of other venous thrombosis and embolism

== ENCOUNTER 2017-05-13 12:26 | Emergency (ER) | payer MEDICARE, BC ==
[2017-05-13 12:26] VITALS: PULSE 113; BMI 29.2
[2017-05-13] MEDS ORDERED: Iodixanol 320 MG/ML 100 ML BOTTLE IV ONE (12:41)
--- NOTE | 2017-05-13 12:41 | C.PDOC ---
History Of Present Illness Patient is a 71 year old male sent to the ER from shelter due to slurred speech, possibly onset 1 hour prior to arrival. History taken from patient and EMS. Per EMS, patient is with new onset slurred speech. As per shelter staff, patient has been complaining of recurrent swelling in left arm and leg with unknown onset, occurring on and off. Patient himself denies slurred speech ; states he has new-onset heaviness in left leg for about 5 days, worsened today. No chest pain or shortness of breath. Patient is complaint with home medications and normally ambulates using a walker. Denies history of seizure, prior stroke/TIA. Time Seen by Provider: 05/13/17 12:36 Chief Complaint (Nursing): Weakness/Neurological Deficit History Per: Patient History/Exam Limitations: no limitations Onset/Duration Of Symptoms: Days (x5) Current Symptoms Are (Timing): Still Present Additional History Per: EMS, Assisted Past Medical History Reviewed: Historical Data, Nursing Documentation, Vital Signs Vital Signs: Last Vital Signs Temp Pulse 110 H 05/13/17 15:57 Resp 19 05/13/17 15:57 BP 144/93 H 05/13/17 15:57 Pulse Ox 100 05/13/17 15:57 - Medical History PMH: Arthritis, Atrial Fibrillation (A flutter), CHF, Diabetes, Deep Vein Thrombosis, HTN, Hypercholesterolemia, Hyperlipidemia, Peripheral Edema, Chronic Kidney Disease - [facility] Procedures DILATE R EXT ILIAC ART W DRUG-ELUT INTRALUM, PERC (01/17/15) DILATION OF RIGHT COMMON ILIAC ARTERY, PERCUTANEOUS APPROACH (01/17/15) INSERTION OF INTRALUM DEV INTO INF VENA CAVA, PERC APPROACH (01/17/15) INTRODUCE OTH THROMBOLYTIC IN PERIPH VEIN, PERC (01/17/15) TETANUS TOXOID ADMINIST (12/06/14) Family History: States: Unknown Family Hx - Social History Hx Tobacco Use: No Hx Alcohol Use: No Hx Substance Use: No - Immunization History Hx Tetanus Toxoid Vaccination: Yes (12/06/2014) Hx Influenza Vaccination: Yes Hx Pneumococcal Vaccination: Yes Review Of Systems Except As Marked, All Systems Reviewed And Found Negative. Cardiovascular: Negative for: Chest Pain Respiratory: Negative for: Shortness of Breath Musculoskeletal: Positive for: Other (swelling to left arm and leg) Neurological: Positive for: Weakness ("heaviness" of left leg). 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 Punctate nodular density at the right lung apex. Calcification at the aortic knob. Top normal heart size. Degenerative changes in the spine and shoulders. Impression: Mild venous congestion. - CT Scan/US CT Head Other Rad Studies (CT/US): Read By Radiologist, Radiology Report Reviewed CT/US Interpretation: FINDINGS: HEMORRHAGE: No intracranial hemorrhage. BRAIN : Umanzor-white matter differentiation is preserved. There is no mass, mass effect or abnormal extra-axial fluid collection. VENTRICLES: There is mild age -related global parenchymal volume loss and proportionate enlargement of the ventricles and cortical sulci. CALVARIUM: There is no calvarial fracture. Again seen is a small left parietal scalp hematoma. PARANASAL SINUSES: Predominantly clear. MASTOID AIR CELLS: Predominantly clear. OTHER FINDINGS: None. IMPRESSION: No acute intracranial abnormality. Mild age-related global parenchymal volume loss. NIHSS Stroke Scale - Date/Time Evaluation Performed Date Performed: 05/13/17 Time Performed: 12:39 When Was NIHSS Performed: Code Stroke - How Severe is the Stroke Level of Consciousness: 0=Alert LOC to Questions: 0=Both comments correct LOC to commands: 0=Obeys both correctly Best Gaze: 0=Normal Visual: 0=No visual loss Facial: 1=Minor asymmetry Motor Arm - Left: 0=No drift Motor Arm - Right: 0=No drift Motor Leg - Left: 1=Drift before 5 sec Motor Leg - Right: 0=No drift Limb Ataxia: 0=Absent Sensory: 0=Normal Best Language: 0=No aphasia Dysarthia: 1=Mild to moderate slurring Extinction & Inattention (Neglect): 0=Normal, no object Score: 3 Progress - Re-Evaluation Re-evaluation Note: 05/13/17 12:41 D/W DR CHAPMAN CODE STROKE NEURO [place] [employer]: AWARE OF ER FINDINGS, DOES NOT MEET CRITERIA FOR CODE STROKE. 05/13/17 15:[address] CHAPMAN. RECOMMENDS MEDICATION ADJUSTMENT. PT W WELL DOCUMENTED HO CHRONIC PAIN SYNDROME, PRIOR SWELLING LIKELY DUE TO SYNDROME. DOES NOT REQUIRE ADMISSION FOR NEURO. PENDING DOPPLER D/W DR GONG, MARY IF NEG 05/13/17 16:[address] CHAPMAN, RECOMMENDS RESTARTING GABAPENTIN 300 MG PO TID AND CONTINUE CURRENT Carbamazepine 400 mg TID PRESCRIBED. - Data Reviewed Data Reviewed: Lab, Diagnostic imaging, EKG, Old records - Critical Care Critical Care Time: 90 minutes - Continuity of Care Discussed patient case with:: Patient, PMD Discussed pt. case with risk assessment consultant/specialty: Neurology rTPA Inclusion/Exclusion - Refusal of Treatment Patient Refused Treatment: No - Inclusion Criteria for Altepase Patient is 18 years or Older: Yes The Clinical Diagnosis of Ischemic Stroke That is Causing a Potentially Disabling Neurological Deficit: Yes Time of Onset is Well Established to be Less Than 270 Minute Before Treatment Would Begin: Yes Risk/Benefit Discussed With Patient/Family Member Present: Yes - Exclusion Criteria for Altepase Uncontrolled Hypertension at Time of Treatment (Systolic BP above 185 or Diastolic BP above 110 mmHg): Yes Active Internal Bleeding: No Known Bleeding Diathesis Including but Not Limited to: Platelets Below 100,000/ mm,PTT Above 40 sec After Heparin Use, Current Use of Oral Anitcoagulant With INR Greater Than 1.7 or PT Greater Than 15 secs: No Evidence of an Intracranial Hemorrhage: No Suspicion of Subarachnoid Hemorrhage on Pretreatment Evaluation Even if CT Head Negative For Hemorrhage: No - Warning to TPA With Conditions Following Conditions Weighed Against Anticipated Benefit: Yes Condition: Stroke Serevity Too Mild Medical Decision Making Medical Decision Making: Initial Plan: * Labs * Chest X-Ray * EKG * CT Head W/O contrast * Duplex studies of left upper and lower extremities * Paged Dr. Chapman Disposition Counseled Patient/Family Regarding: Studies Performed, Diagnosis, Need For Followup, Rx Given - Disposition Referrals: Ken Oliva MD [Staff Provider] - Disposition: HOME/ ROUTINE Disposition Time: 16:14 Condition: IMPROVED Prescriptions: Gabapentin [Neurontin] 300 mg PO TID #30 cap Instructions: Chronic Pain (DC) Forms: [employer] (Tajik) - Clinical Impression Clinical Impression: Chronic pain - Scribe Statement The provider has reviewed the documentation as recorded by the Ross Thompson Provider Attestation: All medical record entries made by the Ross were at my direction and personally dictated by me. I have reviewed the chart and agree that the record accurately reflects my personal performance of the history, physical exam, medical decision making, and the department course for this patient. I have also personally directed, reviewed, and agree with the discharge instructions and disposition.
--- NOTE | 2017-05-13 13:03 | CT ---
PROCEDURE: CT HEAD WITHOUT CONTRAST. HISTORY: Code Stroke COMPARISON: Noncontrast head CT from 04/23/2017 and 04/16/2017. TECHNIQUE: Axial computed tomography images were obtained through the head/brain without intravenous contrast. Radiation dose: Total exam DLP = 902.20 mGy-cm. This CT exam was performed using one or more of the following dose reduction techniques: Automated exposure control, adjustment of the mA and/or kV according to patient size, and/or use of iterative reconstruction technique. FINDINGS: HEMORRHAGE: No intracranial hemorrhage. BRAIN: Umanzor-white matter differentiation is preserved. There is no mass, mass effect or abnormal extra-axial fluid collection. VENTRICLES: There is mild age-related global parenchymal volume loss and proportionate enlargement of the ventricles and cortical sulci. CALVARIUM: There is no calvarial fracture. Again seen is a small left parietal scalp hematoma. PARANASAL SINUSES: Predominantly clear. MASTOID AIR CELLS: Predominantly clear. OTHER FINDINGS: None. IMPRESSION: No acute intracranial abnormality. Mild age-related global parenchymal volume loss. Important findings were discussed with Dr. Leblanc in the ER on 05/13/2017 and 12:55 p.m.
--- NOTE | 2017-05-13 13:34 | RAD ---
Chest x-ray single frontal view History: Code stroke. Comparison: 04/04/2017 Findings: Mile venous congestion. Punctate nodular density at the right lung apex. Calcification at the aortic knob. Top normal heart size. Degenerative changes in the spine and shoulders. Impression: Mild venous congestion.
[2017-05-13 14:43] LABS: BASO # 0.1 K/uL (0.0-0.2); BASO % 0.8 % (0.0-2.0); EOS # 0.1 K/uL (0.0-0.7); EOS % 1.3 % (0.0-4.0); HEMOGLOBIN 14.1 g/dL (12.0-18.0); LYMPH # 1.2 K/uL (1.0-4.3); LYMPH % 15.8 % (20.0-40.0); MEAN CELL VOLUME 94.2 fL (80.0-94.0); MEAN CORPUSCULAR HEMOGLOBIN 31.9 pg (27.0-31.0); MEAN CORPUSCULAR HGB CONC 33.9 g/dL (33.0-37.0); MEAN PLATELET VOLUME 8.1 fL (7.2-11.7); MONO # 0.2 K/uL (0.0-0.8); MONO % 3.2 % (0.0-10.0); NEUT # 5.9 K/uL (1.8-7.0); NEUT % 78.9 % (50.0-75.0); RBC 4.41 Mil/uL (4.40-5.90); RED CELL DISTRIBUTION WIDTH 13.6 % (11.5-14.5); WHITE BLOOD COUNT 7.5 K/uL (4.8-10.8)
[2017-05-13 14:49] LABS: INR 1.4; PROTHROMBIN TIME 16.3 SECONDS (9.7-12.2)
[2017-05-13 15:12] LABS: LDL CHOLESTEROL 105 mg/dL (0-129)
[2017-05-13 15:14] LABS: ALB/GLOB RATIO 0.9 (1.0-2.1); ALBUMIN 3.8 g/dL (3.5-5.0); ALT/SGPT 24 U/L (21-72); AST/SGOT 28 U/L (17-59); BLOOD UREA NITROGEN 14 mg/dL (9-20); CALCIUM 8.5 mg/dl (8.6-10.4); GFR AFRICAN-AMERICAN > 60; GFR NON-AFRICAN AMERICAN > 60; HDL CHOLESTEROL 53 mg/dL (30-70)
--- NOTE | 2017-05-13 15:39 | CP.PCM.CON ---
History of Present Illness - History of Present Illness History of Present Illness: Neurology Consult note for Dr. Way Reason for consult: Code stroke This is a 71 year old male with PMHx CHF, DM, HTN, PVD, DVT, HLD, reflex osteodystrophy who presents brought in from [facility] due to slurred speech. Patient himself admits that his speech slurs intermittently, but this is not new for him. Patient was also found with left sided weakness, but per review of documentation, this is chronic. Patient complaining of left leg swelling as well as pins and needles sensation on the dorsum of his left hand and wrist. Patient states that he feels like the pain is traveling up to his elbow. Patient admits occasional double vision for which he was told by an opthalmologist to wear glasses for. Patient denies any other acute complaints including changes in vision, headaches, dizziness, tremors, new weakness. Patient was initially taking Carbamazepine 400 mg TID and Gabapentin 300 mg TID , but after discussion with his primary physician, he had switched the regimen to Carbamazepine 600 mg TID and discontinued the Gabapentin. It was then that his left sided pain worsened. PMHx: CHF, DM, HTN, PVD, DVT, HLD, reflex osteodystrophy PSHx: Multiple vascular interventions, thrombolysis of the left leg, left leg non-union fracture repair Allergies: NKDA Social: Smoker, denies alcohol, drugs. Came from [facility] where he was there for rehab. PMD: Dr. Oliva Review of Systems - Constitutional Constitutional: absent: Chills, Fever - EENT Eyes: Diplopia (occasional). absent: Change in Vision Ears: absent: Decreased Hearing Nose/Mouth/Throat: absent: Nasal Congestion - Cardiovascular Cardiovascular: absent: Chest Pain - Respiratory Respiratory: absent: Dyspnea - Gastrointestinal Gastrointestinal: absent: Abdominal Pain, Nausea, Vomiting - Genitourinary Genitourinary: absent: Dysuria - Musculoskeletal Musculoskeletal: Muscle Weakness (left sided) - Integumentary Integumentary: Swelling (left leg). absent: Rash - Neurological Neurological: Paresthesias (left upper and lower extremity intermittently), Weakness (left arm). absent: Dizziness, Headaches, Tremor - Psychiatric Psychiatric: absent: Anxiety - Endocrine Endocrine: absent: Palpitations Past Patient History - Infectious Disease Hx of Infectious Diseases: None - Past Medical History & Family History Past Medical History?: Yes - Past Social History Smoking Status: Never Smoked - CARDIAC Hx Atrial Fibrillation: Yes (A flutter) Hx Congestive Heart Failure: Yes Hx Hypercholesterolemia: Yes Hx Hypertension: Yes Hx Peripheral Edema: Yes - PULMONARY Hx Respiratory Disorders: No - NEUROLOGICAL Hx Neurological Disorder: Yes Other/Comment: weakness both upper and lower extremiies. Pt on tegretol - HEENT Hx HEENT Problems: Yes Other/Comment: difficulty seeing far - RENAL Hx Chronic Kidney Disease: Yes - ENDOCRINE/METABOLIC Hx Diabetes Mellitus Type 2: Yes - HEMATOLOGICAL/ONCOLOGICAL Hx Blood Disorders: No - INTEGUMENTARY Hx Dermatological Problems: Yes Other/Comment: discoloration BLE - MUSCULOSKELETAL/RHEUMATOLOGICAL Hx Arthritis: Yes - GASTROINTESTINAL Hx Gastrointestinal Disorders: Yes Hx Constipation: Yes - GENITOURINARY/GYNECOLOGICAL Hx Genitourinary Disorders: Yes - PSYCHIATRIC Hx Substance Use: No - SURGICAL HISTORY Hx Surgeries: Yes Hx Angioplasty: Yes Hx Orthopedic Surgery: Yes (RODDING TO LE) - ANESTHESIA Hx Anesthesia: Yes Hx Anesthesia Reactions: No Hx Malignant Hyperthermia: No Meds Allergies/Adverse Reactions: Allergies Allergy/AdvReac Type Severity Reaction Status Date / Time No Known Allergies Allergy Verified 05/13/17 12:39 Physical Exam - Constitutional Appears: No Acute Distress - Head Exam Head Exam: ATRAUMATIC, NORMOCEPHALIC - Eye Exam Eye Exam: EOMI, PERRL (sluggish reaction bilaterally) Additional comments: Bilateral strabismus in no particular discernible pattern - ENT Exam ENT Exam: Mucous Membranes Moist - Respiratory Exam Respiratory Exam: Clear to Auscultation Bilateral, NORMAL BREATHING PATTERN. absent: Rales, Rhonchi, Wheezes - Cardiovascular Exam Cardiovascular Exam: REGULAR RHYTHM, +S1, +S2 - GI/Abdominal Exam GI & Abdominal Exam: Normal Bowel Sounds, Soft. absent: Tenderness - Extremities Exam Extremities exam: Positive for: pedal edema (left sided) Additional comments: Left sided pedal edema, non-pitting Left hand with musculoskeletal deformity. Atrophy of the left wrist extensors. - Neurological Exam Neurological exam: Alert, CN II-XII Intact (with exception of non-specific strabismus pattern in both eyes), Oriented x3 Additional comments: Muscle strength 5/5 in the right upper and lower extremities. Muscle strength 4/5 in the left upper and lower extremities. Sensations diminished in the left upper and lower extremities as compared to the right side. Reflexes 1/4 bilateral upper and lower extremities. No plantar response on the left side. Down-going plantar response on the right. Normal finger-nose testing. No pronator drift. - Psychiatric Exam Psychiatric exam: Normal Affect, Normal Mood - Skin Skin Exam: Dry, Warm Results - Vital Signs Recent Vital Signs: Last Vital Signs Temp Pulse 107 H 05/13/17 13:53 Resp 17 05/13/17 13:53 BP 132/77 05/13/17 13:53 Pulse Ox 99 05/13/17 15:08 - Labs Result Diagrams: 05/13/17 14:36 05/13/17 14:36 Labs: Laboratory Results - last 24 hr 05/13/17 05/13/17 05/13/17 12:32 14:36 14:36 WBC 7.5 RBC 4.41 Hgb 14.1 Hct 41.6 MCV 94.2 H MCH 31.9 H MCHC 33.9 RDW 13.6 Plt Count 271 MPV 8.1 Neut % (Auto) 78.9 H Lymph % (Auto) 15.8 L Durham % (Auto) 3.2 Eos % (Auto) 1.3 Baso % (Auto) 0.8 Neut # (Auto) 5.9 Lymph # (Auto) 1.2 Durham # (Auto) 0.2 Eos # (Auto) 0.1 Baso # (Auto) 0.1 PT 16.3 H INR 1.4 APTT 32 Sodium Potassium Chloride Carbon Dioxide Anion Gap BUN Creatinine Est GFR ( Amer) Est GFR (Non-Af Amer) POC Glucose (mg/dL) 230 H Random Glucose Hemoglobin A1c Calcium Total Bilirubin AST ALT Alkaline Phosphatase Troponin I Total Protein Albumin Globulin Albumin/Globulin Ratio Triglycerides Cholesterol LDL Cholesterol Direct HDL Cholesterol Blood Type 05/13/17 05/13/17 05/13/17 14:36 14:36 14:36 WBC RBC Hgb Hct MCV MCH MCHC RDW Plt Count MPV Neut % (Auto) Lymph % (Auto) Durham % (Auto) Eos % (Auto) Baso % (Auto) Neut # (Auto) Lymph # (Auto) Durham # (Auto) Eos # (Auto) Baso # (Auto) PT INR APTT Sodium 132 Potassium 4.6 Chloride 95 L Carbon Dioxide 27 Anion Gap 15 BUN 14 Creatinine 1.0 Est GFR ( Amer) > 60 Est GFR (Non-Af Amer) > 60 POC Glucose (mg/dL) Random Glucose 245 H Hemoglobin A1c 8.1 H Calcium 8.5 L Total Bilirubin 0.6 AST 28 ALT 24 Alkaline Phosphatase 124 Troponin I < 0.0120 Total Protein 7.9 Albumin 3.8 Globulin 4.1 H Albumin/Globulin Ratio 0.9 L Triglycerides 110 Cholesterol 213 H LDL Cholesterol Direct 105 HDL Cholesterol 53 Blood Type A POSITIVE Assessment & Plan - Assessment and Plan (Free Text) Assessment: This is a 71 year old male with PMHx CHF, DM, HTN, PVD, DVT, HLD, reflex osteodystrophy who presents brought in from [facility] due to slurred speech. At the time of encounter, patient was not slurring his speech. His left sided symptoms including pain and swelling are likely due to complex regional pain syndrome. Patient was initially taking Carbamazepine 400 mg TID and Gabapentin 300 mg TID, but had switched the regimen to Carbamazepine 600 mg TID and discontinued the Gabapentin. It was then that his left sided pain worsened. Plan: Complex Regional Pain Syndrome Recommend Carbamazepine 400 mg PO TID Recommend Gabapentin 300 mg PO TID Continue outpatient PT/OT Medical workup of left lower extremity swelling, though this seems to be chronic in nature given his past records Head CT was not indicative of acute pathology. MRI was recommended to the patient at bedside, but he refused. Patient is neurologically stable. Thank you for this consult. Patient was seen and discussed with Dr. Way.
[2017-05-13 17:28] VITALS: BP 150/78; PULSE 106; RESP 18; TEMP 98.4; O2SAT 98
--- NOTE | 2017-05-14 09:26 | VASCLAB ---
PROCEDURE: Left Lower Extremity Venous Duplex Exam. HISTORY: L LEG SWELLING PRIORS: None. TECHNIQUE: Left common femoral, femoral, popliteal and posterior tibial, peroneal and great saphenous veins were evaluated. Flow was assessed with color Doppler, compressibility, assessment of phasic flow and augmentation response. Report prepared by MIRIAM Goode, RVT FINDINGS: LEFT: 1. Common Femoral Vein: 1.1. Compressibility - Fully compressible: Thrombus - None : Flow - Phasic: Augmentation -Normal: Reflux - None. 2. Femoral Vein: 2.1. Compressibility - Partial: Thrombus - Chronic: Flow - Absent : Augmentation -None: Reflux - None. 3. Popliteal Vein: 3.1. Compressibility - Partial: Thrombus - Chronic: Flow - Absent : Augmentation -None: Reflux - None. 4. Posterior Tibial Vein: 4.1. Compressibility - Fully compressible: Thrombus - None: Flow - Phasic: Augmentation -Normal: Reflux - None. 5. Peroneal Vein: 5.1. Compressibility - Fully compressible: Thrombus - None: Flow - Phasic: Augmentation -Normal: Reflux - None. 6. Great Saphenous Vein: 6.1. Compressibility - Fully compressible: Thrombus - None: Flow - Phasic: Augmentation - Normal: Reflux - None. OTHER FINDINGS: Dr. Leblanc notified about the findings. 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 Normal venous flow noted in the right common femoral vein.
--- NOTE | 2017-05-14 09:26 | VASCLAB ---
PROCEDURE: Left Upper Extremity Venous Duplex Exam HISTORY: L ARM SWELLING PRIORS: None. TECHNIQUE: Left upper extremity, internal jugular, subclavian, axillary, brachial, ulnar, radial, basilic and upper cephalic veins were evaluated. Flow was assessed with color Doppler, compressibility, assessment of phasic flow and augmentation response. Report prepared by MIRIAM Goode, RVT FINDINGS: LEFT: 1. Internal Jugular: 1.1. Compressibility - Fully compressible: Thrombus - None : Flow - Phasic: Augmentation -Normal: Reflux - None. 2. Subclavian: 2.1. Compressibility - Fully compressible: Thrombus - None : Flow - Phasic: Augmentation -Normal: Reflux - None. 3. Axillary: 3.1. Compressibility - Fully compressible: Thrombus - None : Flow - Phasic: Augmentation -Normal: Reflux - None. 4. Brachial: 4.1. Compressibility - Fully compressible: Thrombus - None: Flow - Phasic: Augmentation -Normal: Reflux - None. 5. Ulnar: 5.1. Compressibility - Fully compressible: Thrombus - None: Flow - Phasic: Augmentation -Normal: Reflux - None. 6. Radial: 6.1. Compressibility - Fully compressible: Thrombus - None: Flow - Phasic: Augmentation - Normal: Reflux - None. 7. Cephalic: 7.1. Compressibility - Fully compressible: Thrombus - None: Flow - Phasic: Augmentation -Normal: Reflux - None. 8. Basilic: 8.1. Compressibility - Fully compressible: Thrombus - None: Flow - Phasic: Augmentation -Normal: Reflux - None. OTHER FINDINGS: Left: None. IMPRESSION: Left: No evidence of vein thrombosis of the left upper extremity with excellent venous flow. Normal valve function noted of the left side. Normal venous flow noted in the right internal jugular and right subclavian veins.
== END 2017-05-13 17:34 | disposition home or self-care (01) ==
LOC: C.ER 12:26
DX: G89.29 Other chronic pain (principal)

== ENCOUNTER 2018-02-02 17:35 | Inpatient (IN) | payer MEDICARE, BC ==
[2018-02-02 17:35] VITALS: PULSE 113; BMI 29.2
--- NOTE | 2018-02-02 17:56 | C.PDOC ---
History Of Present Illness 72 year old male with a history of atrial flutter, CHF, diabetes, HTN, hypercholesterolemia, and seizures presents to the emergency department with complaints of diffuse weakness for the past few days. Patient states that his "nephew is leaving" and can no longer take care of him. Patient spoke to Dr. Oliva who suggested that he come to the ED for assisted placement. Patient denies chest pain, shortness of breath, falls, or trauma. No other complaints Time Seen by Provider: 02/02/18 17:56 Chief Complaint (Nursing): Weakness/Neurological Deficit History Per: Patient History/Exam Limitations: no limitations Onset/Duration Of Symptoms: Days Past Medical History Reviewed: Historical Data, Nursing Documentation, Vital Signs Vital Signs: Last Vital Signs Temp 97.9 F 02/02/18 17:43 Pulse 96 H 02/02/18 17:43 Resp 15 02/02/18 17:43 BP 152/85 H 02/02/18 17:43 Pulse Ox 97 02/02/18 17:43 - Medical History PMH: Arthritis, Atrial Fibrillation (A flutter), CHF, Diabetes, Deep Vein Thrombosis, HTN, Hypercholesterolemia, Hyperlipidemia, Peripheral Edema, Chronic Kidney Disease, Seizures Surgical History: No Surg Hx - [facility] Procedures DILATE R EXT ILIAC ART W DRUG-ELUT INTRALUM, PERC (01/17/15) DILATION OF RIGHT COMMON ILIAC ARTERY, PERCUTANEOUS APPROACH (01/17/15) INSERTION OF INTRALUM DEV INTO INF VENA CAVA, PERC APPROACH (01/17/15) INTRODUCE OTH THROMBOLYTIC IN PERIPH VEIN, PERC (01/17/15) TETANUS TOXOID ADMINIST (12/06/14) Family History: States: No Known Family Hx - Social History Hx Tobacco Use: No Hx Alcohol Use: No Hx Substance Use: No - Immunization History Hx Tetanus Toxoid Vaccination: Yes (12/06/2014) Hx Influenza Vaccination: Yes Hx Pneumococcal Vaccination: Yes Review Of Systems Except As Marked, All Systems Reviewed And Found Negative. Constitutional: Positive for: Weakness. Negative for: Fever, Chills Eyes: Negative for: Pain ENT: Negative for: Ear Pain Cardiovascular: Negative for: Chest Pain Respiratory: Negative for: Cough, Shortness of Breath, SOB with Excertion Gastrointestinal: Negative for: Nausea, Vomiting, Abdominal Pain, Constipation, Melena, Hematochezia, Hematemesis Genitourinary: Negative for: Dysuria, Frequency, Incontinence, Hematuria, Penile Discharge Musculoskeletal: Negative for: Neck Pain Skin: Negative for: Rash, Lesions Neurological: Positive for: Weakness. Negative for: Numbness, Incoordination, Headache Psych: Negative for: Anxiety, Depression Physical Exam - Physical Exam Appears: Non-toxic, No Acute Distress Skin: Warm, Dry Head: Atraumatic, Normacephalic Eye(s): bilateral: Normal Inspection, PERRL, EOMI Nose: Normal Oral Mucosa: Moist Tongue: Normal Appearing Lips: Normal Appearing Neck: Normal, Supple, Other (no meningeal signs) Chest: Symmetrical, No Tenderness Cardiovascular: Rhythm Regular, No Murmur Respiratory: No Rales, No Rhonchi, No Wheezing Gastrointestinal/Abdominal: Soft, No Tenderness, No Guarding, No Rebound Back: Normal Inspection, No CVA Tenderness Extremity: Normal ROM, No Tenderness Extremity: Bilateral: Atraumatic, Normal Color And Temperature, Normal ROM Pulses: Left Dorsalis Pedis: Normal, Right Dorsalis Pedis: Normal Neurological/Psych: Oriented x3, Normal Speech, Normal Cognition, No Cerebellar Signs, Normal Motor, Normal Sensation Extremity: Right: No Drift, Left: No Drift, Upper: No Drift, Lower: No Drift ED Course And Treatment - Laboratory Results Result Diagrams: 02/02/18 14:45 02/02/18 14:45 ECG: Interpreted By Nc ECG Rhythm: Sinus Rhythm ECG Interpretation: Normal Interpretation Of ECG: No STEMI Rate From EC O2 Sat by Pulse Oximetry: 97 (RA) Pulse Ox Interpretation: Normal Medical Decision Making Medical Decision Makin72 year old male p/w diffuse weakness, told to come to ED by PMD, Dr. Oliva for assisted placement. No focal weakness. No tenderness. No fall or trauma. No GI or complaints. No ascending or descending weakness. No hx of thyroid issues. No neck stiffness of pain. Pending imaging and labs. Plan: CMP Magnesium TSH Troponin CBC CXR Urinalysis 2213 pt endorsed fall 1 week prior to RN will seek imaging appreciate consult w/ Dr. Oliva: to admit to his service for social placement / weakness. Endorsed pending CTs 1127 ct head negative: orbits negative given home meds for HTN as well toradol for chronic back pain. No enuresis encoparesis or saddle anesthesia to obs. Disposition - Disposition Disposition: HOSPITALIZED Disposition Time: 22:13 Condition: GOOD - Clinical Impression Clinical Impression: Weakness - Scribe Statement The provider has reviewed the documentation as recorded by the Scribe (Pilo Kang) Provider Attestation: All medical record entries made by the Scribe were at my direction and personally dictated by me. I have reviewed the chart and agree that the record accurately reflects my personal performance of the history, physical exam, medical decision making, and the department course for this patient. I have also personally directed, reviewed, and agree with the discharge instructions and disposition.
[2018-02-02 18:33] LABS: BASO # 0.1 K/uL (0.0-0.2); BASO % 0.9 % (0.0-2.0); EOS # 0.1 K/uL (0.0-0.7); EOS % 0.6 % (0.0-4.0); HEMOGLOBIN 14.7 g/dL (12.0-18.0); LYMPH # 1.6 K/uL (1.0-4.3); LYMPH % 19.5 % (20.0-40.0); MEAN CELL VOLUME 92.8 fL (80.0-94.0); MEAN CORPUSCULAR HEMOGLOBIN 31.4 pg (27.0-31.0); MEAN CORPUSCULAR HGB CONC 33.8 g/dL (33.0-37.0); MEAN PLATELET VOLUME 9.2 fL (7.2-11.7); MONO # 0.3 K/uL (0.0-0.8); MONO % 3.5 % (0.0-10.0); NEUT # 6.1 K/uL (1.8-7.0); NEUT % 75.5 % (50.0-75.0); NRBC % 0.2 % (0.0-2.0); RBC 4.7 Mil/uL (4.40-5.90); RED CELL DISTRIBUTION WIDTH 12.7 % (11.5-14.5); WHITE BLOOD COUNT 8.1 K/uL (4.8-10.8)
[2018-02-02 18:46] LABS: ALB/GLOB RATIO 1.1 (1.0-2.1); ALT/SGPT 17 U/L (21-72); AST/SGOT 15 U/L (17-59); BLOOD UREA NITROGEN 18 mg/dL (9-20); CALCIUM 8.3 mg/dl (8.6-10.4); GFR NON-AFRICAN AMERICAN > 60
[2018-02-02 19:53] LABS: SQUAMOUS EPITHIAL 1 /hpf (0-5); URINE BACTERIA RARE (<OCC); URINE BILIRUBIN NEGATIVE (NEGATIVE); URINE BLOOD 1+ (NEGATIVE); URINE CLARITY Clear (Clear); URINE COLOR Yellow (YELLOW); URINE GLUCOSE (UA) 3+ mg/dL (Normal); URINE LEUKOCYTE ESTERASE NEG Leu/uL (Negative); URINE PROTEIN 1+ mg/dL (NEGATIVE); URINE UROBILINOGEN NORMAL mg/dL (0.2-1.0)
[2018-02-02] MEDS ORDERED: Labetalol 25mg/5ml Syringe IVP STA (22:51)
[2018-02-02] MEDS ORDERED: Labetalol 5mg/ml (4ml) ONE (22:51)
[2018-02-03] MEDS ORDERED: Ergocalciferol 50,000 Intl Units Cap PO SCH (07:45)
--- NOTE | 2018-02-03 08:53 | CT ---
Date of service: 02/03/2018 PROCEDURE: CT Cervical Spine without contrast HISTORY: ?fall COMPARISON: None available. TECHNIQUE: Axial computed tomography images were obtained of the cervical spine without the use of intravenous contrast. Coronal and sagittal reformatted images were created and reviewed. Radiation dose: Total exam DLP = 612.75 mGy-cm. This CT exam was performed using one or more of the following dose reduction techniques: Automated exposure control, adjustment of the mA and/or kV according to patient size, and/or use of iterative reconstruction technique. FINDINGS: VERTEBRAE: Vertebral bodies are maintained in height. There is grade 1 anterolisthesis at C 3-4 likely degenerative in origin. Normal alignment is maintained elsewhere. The atlantoaxial articulation and odontoid process are intact. DISCS/SPINAL CANAL/NEURAL FORAMINA: No significant central spinal stenosis. There is right neural foraminal stenosis at C3-4 through C6-7. there narrowing of the C3-4 and C6-7 intervertebral disc spaces consistent with degenerative disc disease. PARASPINAL SOFT TISSUES: Evidence of old calcified granulomatous disease in right lung apex. 1.9 cm mass in the lower pole of the left thyroid lobe. Several additional smaller nodules are identified in the left thyroid lobe as well. Further evaluation with thyroid ultrasound examination is advised. OTHER FINDINGS: None. IMPRESSION: No evidence of fracture. Grade 1 anterolisthesis at C3-4, likely degenerative. Multilevel right neural foraminal stenosis as above. Old granulomatous disease. Multiple thyroid nodules. Recommend correlation with thyroid ultrasound examination. The preliminary findings for this examination were reported by [facility] at 1:27 a.m. on 02/03/2018. There is discordance of this report with the preliminary findings. Presence of multiple thyroid nodules was not described in the preliminary report of this examination. See above.
--- NOTE | 2018-02-03 09:13 | RAD ---
Chest x-ray two views History: Weakness. Comparison: 05/13/2017 Findings: Mild venous congestion. Biapical pleural thickening with upper lobe granulomatous changes. Minimal patchy increased markings at the left lung base. Atherosclerotic calcification at the aortic knob. Mild cardiomegaly. Degenerative changes in the spine and shoulders. Impression: Mild venous congestion. Biapical pleural thickening with upper lobe granulomatous changes. Minimal patchy increased markings at the left lung base. Atherosclerotic calcification at the aortic knob. Mild cardiomegaly.
--- NOTE | 2018-02-03 10:24 | CT ---
Date of service: 02/03/2018 PROCEDURE: CT MAXILLOFACIAL BONES WITHOUT CONTRAST HISTORY: ?fall COMPARISON: Correlation made with concurrent CT scan of the brain 02/02/2018. TECHNIQUE: Contiguous axial CT images of the maxillofacial bones were obtained. Coronal and sagittal reformats were generated. Radiation dose: Total exam DLP = 823.2 mGy-cm. This CT exam was performed using one or more of the following dose reduction techniques: Automated exposure control, adjustment of the mA and/or kV according to patient size, and/or use of iterative reconstruction technique. FINDINGS: NASAL BONES: No evidence of acute nasal bone fracture. The nasal septum exhibits slight leftward deviation. Small bilateral amanda bullosa present.. ORBITS: The stat call on the all wall the the the the the the wall the the just her legs are all muscles are also and contents are intact. Globes intact and lenses appropriately located. There are no retrobulbar hemorrhages or collections the the. There is a small approximately 6.5 mm somewhat elliptical shaped radiopaque/metallic foreign body within the left pre maxillary soft tissues adjacent to the inferomedial orbital rim. In addition, there is a punctate calcific like density within the skin surface right pre maxillary soft tissues. PARANASAL SINUSES/ MASTOIDS: Clear. The visualized paranasal sinuses are well-developed and currently well-aerated. No fluid levels seen to suggest acute hemorrhage or sinusitis. No significant mucoperiosteal inflammatory changes. MAXILLA: Unremarkable. MANDIBLE/ TEMPOROMANDIBULAR JOINTS: Unremarkable. SKULL BASE: Unremarkable. TEMPORAL BONES: Middle ears and mastoid grossly unremarkable. OTHER FINDINGS: None. IMPRESSION: No evidence of acute maxillofacial skeletal fractures. Small radiopaque foreign body seen within the left pre maxillary soft tissues adjacent to the left infero medial orbital rim
[2018-02-03] MEDS ORDERED: (Novolin R) Insulin Human Regular 100 units/ml vial SC ONE (12:23)
--- NOTE | 2018-02-03 12:24 | CARD ---
APPROVED REPORT Date of service: 02/02/2018 EKG Measurement Heart [id number] PA 282P [id number] <Conclusion> Sinus rhythm with 1st degree AV block Nonspecific ST abnormality Abnormal ECG
[2018-02-03] MEDS: (Novolin R) Insulin Human Regular 100 units/ml vial SC SCH ×3 (12:49→22:04)
--- NOTE | 2018-02-03 13:30 | CT ---
Date of service: 02/02/2018 PROCEDURE: CT HEAD WITHOUT CONTRAST. HISTORY: ?fall COMPARISON: None available. TECHNIQUE: Axial computed tomography images were obtained through the head/brain without intravenous contrast. Radiation dose: Total exam DLP = 1148.88 mGy-cm. This CT exam was performed using one or more of the following dose reduction techniques: Automated exposure control, adjustment of the mA and/or kV according to patient size, and/or use of iterative reconstruction technique. FINDINGS: HEMORRHAGE: No acute parenchymal, subarachnoid or extra-axial hemorrhage. BRAIN: Mild diffuse and confluent chronic periventricular white matter ischemic changes seen extending peripherally into the deep white matter of both cerebral hemispheres. Moderate supra-infratentorial generalized volume loss. Mild vascular calcifications are present VENTRICLES: No obstructive hydrocephalus. CALVARIUM: There are no acute calvarial fractures. Redemonstrated is localized soft tissue swelling in the left occipito parietal scalp that is nonspecific though could represent some localized scarring unchanged from prior study. PARANASAL SINUSES: The visualized paranasal air complexes well-developed and currently well-aerated. No fluid levels seen to suggest acute hemorrhage or sinusitis. MASTOID AIR CELLS: Unremarkable as visualized. No inflammatory changes. OTHER FINDINGS: None. IMPRESSION: No acute intracranial hemorrhage. Mild confluent chronic periventricular white matter ischemic changes. Moderate generalized supra-/infratentorial volume loss.
--- NOTE | 2018-02-03 14:28 | CP.PCM.HP ---
History of Present Illness - History of Present Illness History of Present Illness: chief complaint: Increasing weakness History of present illness 72year-old male with history of hypertension, diabetes, peripheral vascular disease, DVT, history of left leg nonunion, status post surgery, left upper extremity reflex osteodystrophy, and associated with the neuropathy, cervical spinal disorders with cervical spondylosis, repeated falls in the past came to the emergency room, With increasing weakness. He was having some difficulty in getting up. Patient's assistance was helping him most of the time, not available now. He is not able to manage by himself in the house. He was having difficult time in getting around Because of the worsening symptoms he decided to come to the emergency room, with increasing weakness my increasing fatigue, and also leg weakness. No fall or injury noted He was not able to move the left upper extremity. Because of that initially "stroke alert was called, and he had a CAT scan. But there was no obvious focal deficit. Complaining of pain in the left upper extremity, and also significant weakness and wasting noted in the left upper extremity. He is also complaining of weakness in the left lower extremity. He is able to communicate now, he is alert and awake now. [facility], now he is also oriented to place. Past medical history: osteoarthritis, history of congestive heart failure, diabetes, deep venous throm bosis, hypertension, hypercholesterolemia, hyperlipidemia, peripheral vascular disease, chronic renal insufficiency, reflex osteodystrophy, cervical spinal stenosis and also left upper extremity weakness. Surgical history: Peripheral arterial intervention, thrombolysis therapy to the left leg, history of left leg nonunion, and grafting intramedullary nailing in the past. Allergies no known drug allergic personal history: Lifelong nonsmoker, nonalcoholic. ROS: Patient is currently no headache, complaining of some neck pain, weakness in the left upper extremity, and also contractures noted, pain present in the left upper tone throughout the forearm, also complaining of some pain in the left lower extremity, she denies any chest pain or shortness of breath, denies any nausea vomiting On examination: Vital signs stable, mild tachycardia noted. Alert awake oriented 3, he has no functional residual weakness at this time. HEENT PERRLA. Neck minimal stiffness noted. Bilateral good air entry no wheezing or rales noted irregular heart sound nontender abdomen. Bilateral pedal edema noted more on the left side. patient's labs reviewed hypoglycemia noted Chest x-ray is nonspecific. 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 Patient now admitted with altered mental status, but now improving, most likely metabolic encephalopathy. admitted for longterm placement Present on Admission - Present on Admission Any Indicators Present on Admission: No History of DVT/PE: No History of Uncontrolled Diabetes: No Urinary Catheter: No Decubitus Ulcer Present: No Past Patient History - Infectious Disease Hx of Infectious Diseases: None - Past Medical History & Family History Past Medical History?: Yes - Past Social History Smoking Status: Never Smoked - CARDIAC Hx Atrial Fibrillation: Yes (A flutter) Hx Congestive Heart Failure: Yes Hx Hypercholesterolemia: Yes Hx Hypertension: Yes Hx Peripheral Edema: Yes - PULMONARY Hx Respiratory Disorders: No - NEUROLOGICAL Hx Seizures: Yes - HEENT Hx HEENT Problems: Yes Other/Comment: difficulty seeing far - RENAL Hx Chronic Kidney Disease: Yes - ENDOCRINE/METABOLIC Hx Diabetes Mellitus Type 2: Yes - HEMATOLOGICAL/ONCOLOGICAL Hx Blood Disorders: No - INTEGUMENTARY Hx Dermatological Problems: Yes Other/Comment: discoloration BLE - MUSCULOSKELETAL/RHEUMATOLOGICAL Hx Arthritis: Yes - GASTROINTESTINAL Hx Gastrointestinal Disorders: Yes Hx Constipation: Yes - GENITOURINARY/GYNECOLOGICAL Hx Genitourinary Disorders: Yes - PSYCHIATRIC Hx Substance Use: No - SURGICAL HISTORY Hx Surgeries: Yes Hx Angioplasty: Yes Hx Orthopedic Surgery: Yes (RODARIEL TO MAEVE) - ANESTHESIA Hx Anesthesia: Yes Hx Anesthesia Reactions: No Hx Malignant Hyperthermia: No Meds Allergies/Adverse Reactions: Allergies Allergy/AdvReac Type Severity Reaction Status Date / Time No Known Allergies Allergy Verified 02/02/18 17:48 Results - Vital Signs Recent Vital Signs: Last Vital Signs Temp 97.9 F 02/03/18 07:00 Pulse 102 H 02/03/18 09:16 Resp 20 02/03/18 07:00 BP 168/99 H 02/03/18 09:16 Pulse Ox 100 02/03/18 09:00 - Labs Result Diagrams: 02/02/18 14:45 02/02/18 14:45 Labs: Laboratory Results - last 24 hr 02/02/18 02/02/18 02/02/18 14:45 14:45 19:44 WBC 8.1 RBC 4.70 Hgb 14.7 Hct 43.6 MCV 92.8 MCH 31.4 H MCHC 33.8 RDW 12.7 Plt Count 217 MPV 9.2 Neut % (Auto) 75.5 H Lymph % (Auto) 19.5 L Darke % (Auto) 3.5 Eos % (Auto) 0.6 Baso % (Auto) 0.9 Neut # (Auto) 6.1 Lymph # (Auto) 1.6 Darke # (Auto) 0.3 Eos # (Auto) 0.1 Baso # (Auto) 0.1 Sodium 135 Potassium 4.3 Chloride 99 Carbon Dioxide 26 Anion Gap 14 BUN 18 Creatinine 1.1 Est GFR ( Amer) > 60 Est GFR (Non-Af Amer) > 60 POC Glucose (mg/dL) Random Glucose 297 H Calcium 8.3 L Magnesium 1.9 Total Bilirubin 0.5 AST 15 L D ALT 17 L D Alkaline Phosphatase 156 H D Troponin I < 0.0120 Total Protein 7.7 Albumin 4.0 Globulin 3.7 Albumin/Globulin Ratio 1.1 TSH 3rd Generation 0.70 Urine Color Yellow Urine Clarity Clear Urine pH 5.0 Ur Specific Grove 1.015 Urine Protein 1+ H Urine Glucose (UA) 3+ H Urine Ketones Negative Urine Blood 1+ H Urine Nitrate Negative Urine Bilirubin Negative Urine Urobilinogen Normal Ur Leukocyte Esterase Neg Urine WBC (Auto) 1 Urine RBC (Auto) 5 H Ur Squamous Epith Cells 1 Urine Bacteria Rare Hyaline Casts 6-10 H 02/03/18 06:33 WBC RBC Hgb Hct MCV MCH MCHC RDW Plt Count MPV Neut % (Auto) Lymph % (Auto) Darke % (Auto) Eos % (Auto) Baso % (Auto) Neut # (Auto) Lymph # (Auto) Darke # (Auto) Eos # (Auto) Baso # (Auto) Sodium Potassium Chloride Carbon Dioxide Anion Gap BUN Creatinine Est GFR ( Amer) Est GFR (Non-Af Amer) POC Glucose (mg/dL) 374 H Random Glucose Calcium Magnesium Total Bilirubin AST ALT Alkaline Phosphatase Troponin I Total Protein Albumin Globulin Albumin/Globulin Ratio TSH 3rd Generation Urine Color Urine Clarity Urine pH Ur Specific Grove Urine Protein Urine Glucose (UA) Urine Ketones Urine Blood Urine Nitrate Urine Bilirubin Urine Urobilinogen Ur Leukocyte Esterase Urine WBC (Auto) Urine RBC (Auto) Ur Squamous Epith Cells Urine Bacteria Hyaline Casts
[2018-02-03] MEDS: GlipiZIDE 2.5 mg Tab PO SCH (22:06)
[2018-02-04 07:07] LABS: BASO # 0.1 K/uL (0.0-0.2); BASO % 0.9 % (0.0-2.0); EOS # 0.1 K/uL (0.0-0.7); EOS % 1.4 % (0.0-4.0); HEMOGLOBIN 13.7 g/dL (12.0-18.0); LYMPH # 1.6 K/uL (1.0-4.3); LYMPH % 22.6 % (20.0-40.0); MEAN CELL VOLUME 92.8 fL (80.0-94.0); MEAN CORPUSCULAR HEMOGLOBIN 31.7 pg (27.0-31.0); MEAN CORPUSCULAR HGB CONC 34.1 g/dL (33.0-37.0); MEAN PLATELET VOLUME 8.7 fL (7.2-11.7); MONO # 0.3 K/uL (0.0-0.8); MONO % 3.8 % (0.0-10.0); NEUT # 5.1 K/uL (1.8-7.0); NEUT % 71.3 % (50.0-75.0); RBC 4.31 Mil/uL (4.40-5.90); RED CELL DISTRIBUTION WIDTH 13.1 % (11.5-14.5); WHITE BLOOD COUNT 7.2 K/uL (4.8-10.8)
[2018-02-04 07:39] LABS: ALB/GLOB RATIO 0.9 (1.0-2.1); ALBUMIN 3.3 g/dL (3.5-5.0); CALCIUM 7.8 mg/dl (8.6-10.4)
[2018-02-04] MEDS: (Novolin R) Insulin Human Regular 100 units/ml vial SC SCH ×4 (08:30→22:09)
[2018-02-04] MEDS: GlipiZIDE 2.5 mg Tab PO SCH ×2 (08:32→17:25)
--- NOTE | 2018-02-04 18:51 | CP.PCM.PN ---
Subjective - Date & Time of Evaluation Date of Evaluation: 02/04/18 Time of Evaluation: 18:49 - Subjective Subjective: pt now feeling sleepy drowsy c/o slowing speech bp in the high side but answering questions moving extremities vitals noted mild tachy chest good air entry regular hs abd soft no edema labs noted likly in mild encephalopathy will add ivf check labs will f/u Objective - Vital Signs/Intake and Output Vital Signs (last 24 hours): Temp Pulse Resp BP Pulse Ox 97.8 F 103 H 20 167/100 H 96 02/04/18 07:00 02/04/18 07:00 02/04/18 07:00 02/04/18 10:08 02/04/18 08:00 - Medications Medications: Current Medications Apixaban (Eliquis) 5 mg PO BID [facility] Last Admin: 02/04/18 17:46 Dose: 5 mg Aspirin (Aspirin Chewable) 81 mg PO DAILY [facility] Last Admin: 02/04/18 10:09 Dose: 81 mg Carbamazepine (Tegretol) 400 mg PO TID [facility] Last Admin: 02/04/18 17:46 Dose: 400 mg Carvedilol (Coreg) 6.25 mg PO BID [facility] Last Admin: 02/04/18 17:46 Dose: 6.25 mg Ergocalciferol (Drisdol 50,000 Intl Units Cap) 1 cap PO Q7D [facility] Last Admin: 02/03/18 09:02 Dose: 1 cap Furosemide (Lasix) 20 mg PO DAILY [facility] Last Admin: 02/04/18 10:08 Dose: 20 mg Gabapentin (Neurontin) 300 mg PO TID [facility] Last Admin: 02/04/18 17:45 Dose: 300 mg Glipizide (Glucotrol) 2.5 mg PO BIDAC [facility] Last Admin: 02/04/18 17:25 Dose: 2.5 mg Insulin Human Regular (Novolin R) 0 unit SC ACHS [facility]; Protocol Last Admin: 02/04/18 17:25 Dose: 3 units Rosuvastatin Calcium (Crestor) 5 mg PO HS [facility] Last Admin: 02/03/18 22:05 Dose: 5 mg Sitagliptin Phosphate (Januvia) 25 mg PO DAILY [facility] Last Admin: 02/04/18 10:08 Dose: 25 mg - Labs Labs: 02/04/18 06:58 02/04/18 06:58
[2018-02-04] MEDS ORDERED: Sodium Chloride 0.45% 1,000 ML IV SCH (19:00)
[2018-02-05 07:56] LABS: BASO % 0.3 % (0.0-2.0); EOS # 0.1 K/uL (0.0-0.7); EOS % 1.1 % (0.0-4.0); HEMOGLOBIN 13.8 g/dL (12.0-18.0); LYMPH # 1.2 K/uL (1.0-4.3); MEAN CELL VOLUME 92.7 fL (80.0-94.0); MEAN CORPUSCULAR HEMOGLOBIN 31.4 pg (27.0-31.0); MEAN CORPUSCULAR HGB CONC 33.9 g/dL (33.0-37.0); MEAN PLATELET VOLUME 8.7 fL (7.2-11.7); MONO # 0.3 K/uL (0.0-0.8); NEUT # 4.9 K/uL (1.8-7.0); NEUT % 75.6 % (50.0-75.0); RBC 4.39 Mil/uL (4.40-5.90); RED CELL DISTRIBUTION WIDTH 13.2 % (11.5-14.5); WHITE BLOOD COUNT 6.4 K/uL (4.8-10.8)
[2018-02-05 08:17] LABS: ALBUMIN 3.4 g/dL (3.5-5.0); ALT/SGPT 17 U/L (21-72); AST/SGOT 15 U/L (17-59); BLOOD UREA NITROGEN 24 mg/dL (9-20); CALCIUM 7.8 mg/dl (8.6-10.4); GFR NON-AFRICAN AMERICAN > 60
[2018-02-05] MEDS: (Novolin R) Insulin Human Regular 100 units/ml vial SC SCH ×4 (08:20→21:54)
[2018-02-05] MEDS: GlipiZIDE 2.5 mg Tab PO SCH ×2 (08:20→17:26)
[2018-02-06] MEDS: GlipiZIDE 2.5 mg Tab PO SCH ×2 (08:03→17:18)
[2018-02-06] MEDS: (Novolin R) Insulin Human Regular 100 units/ml vial SC SCH ×4 (08:03→21:23)
[2018-02-06 11:58] LABS: ALB/GLOB RATIO 1.2 (1.0-2.1); ALBUMIN 3.5 g/dL (3.5-5.0); ALT/SGPT 15 U/L (21-72); AST/SGOT 19 U/L (17-59); BLOOD UREA NITROGEN 26 mg/dL (9-20); CALCIUM 7.9 mg/dl (8.6-10.4); GFR NON-AFRICAN AMERICAN > 60
[2018-02-06 14:13] LABS: BASO # 0.1 K/uL (0.0-0.2); BASO % 0.7 % (0.0-2.0); EOS % 0.3 % (0.0-4.0); HEMOGLOBIN 13.7 g/dL (12.0-18.0); LYMPH # 1.4 K/uL (1.0-4.3); LYMPH % 18.5 % (20.0-40.0); MEAN CELL VOLUME 92.5 fL (80.0-94.0); MEAN CORPUSCULAR HEMOGLOBIN 31.8 pg (27.0-31.0); MEAN CORPUSCULAR HGB CONC 34.3 g/dL (33.0-37.0); MEAN PLATELET VOLUME 9.3 fL (7.2-11.7); MONO # 0.2 K/uL (0.0-0.8); MONO % 3.3 % (0.0-10.0); NEUT # 5.7 K/uL (1.8-7.0); NEUT % 77.2 % (50.0-75.0); NRBC % 0.1 % (0.0-2.0); RBC 4.31 Mil/uL (4.40-5.90); RED CELL DISTRIBUTION WIDTH 12.5 % (11.5-14.5); WHITE BLOOD COUNT 7.4 K/uL (4.8-10.8)
[2018-02-07 04:45] VITALS: RESP 20
[2018-02-07] MEDS: (Novolin R) Insulin Human Regular 100 units/ml vial SC SCH ×2 (07:59→11:30)
[2018-02-07] MEDS: GlipiZIDE 2.5 mg Tab PO SCH (08:00)
[2018-02-07 08:14] VITALS: PULSE 111; TEMP 97.5; O2SAT 99
[2018-02-07 10:27] VITALS: BP 150/90
--- NOTE | 2018-02-07 14:13 | CP.PCM.PN ---
Subjective - Date & Time of Evaluation Date of Evaluation: 02/07/18 Time of Evaluation: 11:00 - Subjective Subjective: BUSINESS OBJECTS ARCHITECT NOTES patient seen today, alert oriented , sitting up in the bed , denies any chest pain, sob, dizziness, palpitations, abdominal pain, c/o spasm to the left upper arm , denies any numbness tinglings ,headache, tinglings No overnight events reported by RN labs and VSS reviewed Objective - Vital Signs/Intake and Output Vital Signs (last 24 hours): Temp Pulse Resp BP Pulse Ox 97.5 F L 111 H 20 150/90 99 02/07/18 07:12 02/07/18 07:12 02/07/18 07:12 02/07/18 10:26 02/07/18 07:12 Intake and Output: 02/07/18 02/07/18 06:59 18:59 Intake Total 120 Output Total 700 Balance -580 - Medications Medications: Current Medications Apixaban (Eliquis) 5 mg PO BID [facility] Last Admin: 02/07/18 10:26 Dose: 5 mg Aspirin (Aspirin Chewable) 81 mg PO DAILY [facility] Last Admin: 02/07/18 10:25 Dose: 81 mg Carbamazepine (Tegretol) 400 mg PO TID [facility] Last Admin: 02/07/18 10:44 Dose: 400 mg Carvedilol (Coreg) 12.5 mg PO BID [facility] Ergocalciferol (Drisdol 50,000 Intl Units Cap) 1 cap PO Q7D [facility] Last Admin: 02/03/18 09:02 Dose: 1 cap Furosemide (Lasix) 20 mg PO DAILY [facility] Last Admin: 02/07/18 10:26 Dose: 20 mg Gabapentin (Neurontin) 300 mg PO TID [facility] Last Admin: 02/07/18 10:26 Dose: 300 mg Glipizide (Glucotrol) 2.5 mg PO BIDAC [facility] Last Admin: 02/07/18 08:00 Dose: 2.5 mg Insulin Human Regular (Novolin R) 0 unit SC [facility]; Protocol Last Admin: 02/07/18 11:30 Dose: 8 u Rosuvastatin Calcium (Crestor) 5 mg PO HS [facility] Last Admin: 02/06/18 21:23 Dose: 5 mg Sitagliptin Phosphate (Januvia) 25 mg PO DAILY [facility] Last Admin: 02/07/18 10:25 Dose: 25 mg - Labs Labs: 02/06/18 13:52 02/06/18 11:13 - Constitutional Appears: Well, Non-toxic, No Acute Distress - Respiratory Exam Respiratory Exam: Clear to Ausculation Bilateral, NORMAL BREATHING PATTERN - Cardiovascular Exam Cardiovascular Exam: Tachycardia, REGULAR RHYTHM - Neurological Exam Neurological Exam: Alert, Awake, Oriented x3 Assessment and Plan - Assessment and Plan (Free Text) Assessment: A/P 72year-old male with history of hypertension, diabetes, peripheral vascular disease, DVT, , status post surgery, left upper extremity reflex osteodystrophy, and associated with the neuropathy, and cervical spondylosis, admitted with weakness and frequent falls at home vss and labs - reviewed - BP slightly elevated and HR in 100"s will incr. coreg to 12.5 mg bid patient [place] [facility] [place] D/w Dr. Oliva , cleared for discharge to [facility] [place] care today and Dr. Oliva will follow the patient at rehab
--- NOTE | 2018-03-14 23:06 | PN ---
DATE: 02/07/2018 SUBJECTIVE: The patient was seen by me at 10:30 p.m. The patient is comfortable. He is trying to sleep at this time. He is complaining of more pain in the left upper extremity. PHYSICAL EXAMINATION: VITAL SIGNS: Temperature 97.5, blood pressure is slightly on the high side, tachycardia noted. CHEST: Good air entry. HEART: Regular heart sounds. ABDOMEN: Nontender. EXTREMITIES: Edema noted in the legs. ASSESSMENT: The patient is a 72-year-old male with multiple medical problems, diabetes, hypertension, left leg cellulitis in the past, deep vein thrombosis on anticoagulation, history of intermittent atrial flutter/fibrillation, left arm severe neuropathy secondary to cervical spondylosis and cervical myelopathy. The patient is clinically stable. He is awaiting for discharge plan tomorrow. Ken Oliva MD
--- NOTE | 2018-03-15 01:55 | PN ---
DATE: 02/05/2018 SUBJECTIVE: The patient is currently feeling well. The patient has some mild tachycardia. PHYSICAL EXAMINATION: VITAL SIGNS: Temperature 98.1, blood pressure 119/83, respiration is 18, saturation is 95%. ASSESSMENT AND PLAN: The patient has left arm pain and swelling and stiffness, concerned about that. He is able to sit up but he is having some significant tremor, weakness. Clinically, otherwise stable, awaiting for rehab placement. We will continue to monitor. Continue the current treatment. Ken Oliva MD
--- NOTE | 2018-03-15 04:28 | DS ---
HISTORY OF PRESENT ILLNESS: This is a 72-year-old male with a history of hypertension, diabetes, PVD, DVT, history of left leg nonunion, status post surgery, left upper extremity reflex osteodystrophy associated with neuropathy, cervical spinal disorder with spondylosis, admitted to the hospital with a recurrent fall and unable to get up and increasing weakness. The patient is also having increasing pain in the left upper extremity. The patient was admitted because of the worsening weakness. Labs and CAT scan and the initial evaluation was negative for any acute pathology. The patient was closely monitored. COURSE IN THE HOSPITAL: The patient underwent physical therapy and also associated with the pain management. The patient slowly improved. He was able to stand up but he needs to do extensive physical exercise and therapy and pain management. Possibly, he will be discharged to the rehabilitation. He agreed go to rehab. Further management as an outpatient will be continued. He will continue his antihypertensives, diabetic medications. Medications are reviewed. He will also continue his anticoagulation, and he will follow up as an outpatient. Ken Oliva MD
== END 2018-02-07 16:02 | DRG 947 ==
LOC: C.ER 17:35 → C.9E 23:26 → C.6T 02-03 00:46 → OBSVTOIN 02-04 12:21
PROVIDERS: ADMIT Internal Medicine; ATTEND Internal Medicine
DX: R53.1 Weakness (principal); G93.41 Metabolic encephalopathy; I13.0 Hypertensive heart and chronic kidney disease with heart failure and stage 1 through stage 4 chronic kidney disease, or unspecified chronic kidney disease; I50.9 Heart failure, unspecified; I48.91 Unspecified atrial fibrillation; N18.9 Chronic kidney disease, unspecified; Z86.718 Personal history of other venous thrombosis and embolism; E78.5 Hyperlipidemia, unspecified; E11.51 Type 2 diabetes mellitus with diabetic peripheral angiopathy without gangrene; E11.40 Type 2 diabetes mellitus with diabetic neuropathy, unspecified; E11.22 Type 2 diabetes mellitus with diabetic chronic kidney disease

== ENCOUNTER 2018-02-16 00:26 | Emergency (ER) | payer MEDICARE ==
[2018-02-16 00:27] VITALS: PULSE 113; BMI 29.2
[2018-02-16] MEDS ORDERED: Labetalol 5mg/ml (4ml) IV STA (00:41)
[2018-02-16] MEDS ORDERED: Labetalol 5mg/ml (4ml) ONE (00:49)
[2018-02-16] MEDS ORDERED: Sodium Chloride 0.9% 500 ML IV ONE (00:49)
--- NOTE | 2018-02-16 00:50 | C.PDOC ---
History Of Present Illness 72 year old male is brought to the ED from his Sn[facility] for evaluation of elevated blood pressure. Patient is also c/o weakness and spams of his lower extremities. Patient denies fever, chills, headache, visual changes, nausea, v omit, numbness, injury, fall, trauma. <Emigdio Bender - Last Filed: 02/16/18 03:03> History Per: Patient History/Exam Limitations: no limitations Onset/Duration Of Symptoms: Days Current Symptoms Are (Timing): Still Present Quality Of Symptoms: Asymptomatic Recent travel outside of the [place]: No Additional History Per: Patient <Emigdio Bender - Last Filed: 02/16/18 03:03> <Maria L Leblanc - Last Filed: 02/16/18 09:13> Chief Complaint (Nursing): High Blood Pressure Past Medical History Reviewed: Historical Data, Nursing Documentation, Vital Signs Vital Signs: Last Vital Signs Temp 98.3 F 02/16/18 00:28 Pulse 110 H 02/16/18 00:28 Resp 16 02/16/18 00:28 BP 233/158 H 02/16/18 00:33 Pulse Ox 97 02/16/18 00:28 - Medical History PMH: Arthritis, Atrial Fibrillation (A flutter), CHF, Diabetes, Deep Vein Thrombosis, HTN, Hypercholesterolemia, Hyperlipidemia, Peripheral Edema, Chronic Kidney Disease, Seizures Surgical History: No Surg Hx - [facility] Procedures DILATE R EXT ILIAC ART W DRUG-ELUT INTRALUM, PERC (01/17/15) DILATION OF RIGHT COMMON ILIAC ARTERY, PERCUTANEOUS APPROACH (01/17/15) INSERTION OF INTRALUM DEV INTO INF VENA CAVA, PERC APPROACH (01/17/15) INTRODUCE OTH THROMBOLYTIC IN PERIPH VEIN, PERC (01/17/15) TETANUS TOXOID ADMINIST (12/06/14) Family History: States: Unknown Family Hx - Social History Hx Tobacco Use: No Hx Alcohol Use: No Hx Substance Use: No - Immunization History Hx Tetanus Toxoid Vaccination: Yes (12/06/2014) Hx Influenza Vaccination: Yes Hx Pneumococcal Vaccination: Yes <Emigdio Bender - Last Filed: 02/16/18 03:03> Vital Signs: Last Vital Signs Temp 97.8 F 02/16/18 07:23 Pulse 101 H 02/16/18 07:23 Resp 18 02/16/18 07:23 BP 116/71 02/16/18 07:23 Pulse Ox 100 02/16/18 07:23 - [facility] Procedures DILATE R EXT ILIAC ART W DRUG-ELUT INTRALUM, PERC (01/17/15) DILATION OF RIGHT COMMON ILIAC ARTERY, PERCUTANEOUS APPROACH (01/17/15) INSERTION OF INTRALUM DEV INTO INF VENA CAVA, PERC APPROACH (01/17/15) INTRODUCE OTH THROMBOLYTIC IN PERIPH VEIN, PERC (01/17/15) TETANUS TOXOID ADMINIST (12/06/14) <Maria L Leblanc - Last Filed: 02/16/18 09:13> Review Of Systems Constitutional: Negative for: Fever, Chills Eyes: Negative for: Vision Change Cardiovascular: Negative for: Chest Pain, Palpitations Respiratory: Negative for: Cough, Shortness of Breath Gastrointestinal: Negative for: Nausea, Vomiting, Abdominal Pain Musculoskeletal: Positive for: Leg Pain Neurological: Positive for: Weakness. Negative for: Headache, Dizziness <Emigdio Bender - Last Filed: 02/16/18 03:03> Physical Exam - Physical Exam Appears: Non-toxic, No Acute Distress Skin: Normal Color, Warm, Dry Head: Atraumatic, Normacephalic Eye(s): bilateral: Normal Inspection, PERRL, EOMI Neck: Normal ROM, Supple Chest: Symmetrical Cardiovascular: Rhythm Regular Respiratory: Normal Breath Sounds, No Rales, No Rhonchi, No Wheezing Gastrointestinal/Abdominal: Soft, No Tenderness, No Guarding, No Rebound Extremity: Normal ROM, No Tenderness, Capillary Refill (< 2 seconds), No Swelling, Other (twicth movements of lower extremities) Pulses: Left Dorsalis Pedis: Normal, Right Dorsalis Pedis: Normal Neurological/Psych: Oriented x3, Normal Speech, Normal Cognition, Normal Motor, Normal Sensation, Other (non focal) Gait: Steady <Emigdio Bender - Last Filed: 02/16/18 03:03> ED Course And Treatment - Laboratory Results Result Diagrams: 02/16/18 00:52 02/16/18 01:16 ECG: Interpreted By Me, Viewed By Me ECG Rhythm: Atrial Flutter ECG Interpretation: No Acute Changes, Abnormal Interpretation Of ECG: atrial flutter with varying block, non-spc ST-T changes. abnormal tracings. Rate From EC O2 Sat by Pulse Oximetry: 97 (ON RA) Pulse Ox Interpretation: Normal <Emigdio Bender Sowmya - Last Filed: 02/16/18 03:03> - Laboratory Results Result Diagrams: 02/16/18 00:52 02/16/18 01:16 <Maria L Leblanc - Last Filed: 02/16/18 09:13> Progress - Re-Evaluation Re-evaluation Note: 02/16/18 07:00 S/O FROM DR BENDER S/P LABETALOL. VSS NEURO INTACT. HO PRIOR AFLUTTER ON PREV EKG 02/16/18 09:12 NO RESPONSE PMD SINCE 0653 X 4 CALLS. BP WNL. WILL DC <Maria L Leblanc - Last Filed: 02/16/18 09:13> Medical Decision Making Medical Decision Making: Plan: * EKG * Labs * CXR * IV fluids * Ativan 1 mg IVP * Toradol 30 mg IVP * Trandate 20 mg IVP <Emigdio Bender Sowmya - Last Filed: 02/16/18 03:03> Disposition - Disposition Disposition Time: 02:57 - POA Present On Arrival: None <Emigdio Bender Sowmya - Last Filed: 02/16/18 03:03> Counseled Patient/Family Regarding: Diagnosis, Need For Followup - Disposition Disposition Time: 09:12 <Maria L Leblanc - Last Filed: 02/16/18 09:13> - Disposition Disposition: TRANSF TO SNF Condition: IMPROVED Instructions: Arrhythmias, High Blood Pressure in Adults Forms: [facility] (Libyan) - Clinical Impression Clinical Impression: Hypertension, Atrial flutter with controlled response - Scribe Statement The provider has reviewed the documentation as recorded by the Scribe Galileo Mendez All medical record entries made by the Scribe were at my direction and personally dictated by me. I have reviewed the chart and agree that the record accurately reflects my personal performance of the history, physical exam, medi adelaida decision making, and the department course for this patient. I have also personally directed, reviewed, and agree with the discharge instructions and disposition. <Emigdio Bender - Last Filed: 02/16/18 03:03>
[2018-02-16 00:54] LABS: BASO # 0.1 K/uL (0.0-0.2); BASO % 1.1 % (0.0-2.0); EOS # 0.1 K/uL (0.0-0.7); EOS % 1.4 % (0.0-4.0); LYMPH # 3.3 K/uL (1.0-4.3); MEAN CELL VOLUME 92.7 fL (80.0-94.0); MEAN CORPUSCULAR HEMOGLOBIN 30.9 pg (27.0-31.0); MEAN CORPUSCULAR HGB CONC 33.4 g/dL (33.0-37.0); MONO # 0.5 K/uL (0.0-0.8); MONO % 5.7 % (0.0-10.0); NEUT # 4.3 K/uL (1.8-7.0); NEUT % 51.8 % (50.0-75.0); NRBC % 0.1 % (0.0-2.0); RBC 4.86 Mil/uL (4.40-5.90); RED CELL DISTRIBUTION WIDTH 13.4 % (11.5-14.5); WHITE BLOOD COUNT 8.3 K/uL (4.8-10.8)
[2018-02-16 01:38] LABS: ALB/GLOB RATIO 1.1 (1.0-2.1); ALBUMIN 3.5 g/dL (3.5-5.0); ALT/SGPT 10 U/L (21-72); AST/SGOT 16 U/L (17-59); BLOOD UREA NITROGEN 19 mg/dL (9-20); CALCIUM 7.7 mg/dl (8.6-10.4); GFR NON-AFRICAN AMERICAN > 60
--- NOTE | 2018-02-16 08:52 | RAD ---
Chest x-ray single frontal view HISTORY: Chest pain. COMPARISON: 02/02/2018 Findings: Biapical pleural thickening with upper lobe granulomatous changes. Mild venous congestion. Right hilar prominence. Atherosclerotic calcification at the aortic knob. Tortuous ectatic aorta. Top normal heart size. Degenerative changes in the spine and shoulders. Impression: Biapical pleural thickening with upper lobe granulomatous changes. Mild venous congestion. Right hilar prominence. Atherosclerotic calcification at the aortic knob.
[2018-02-16 10:28] VITALS: PULSE 81; RESP 16
[2018-02-16 10:58] VITALS: BP 141/101; TEMP 97.9; O2SAT 96
--- NOTE | 2018-02-17 09:52 | CARD ---
APPROVED REPORT Date of service: 02/16/2018 EKG Measurement Heart [id number] <Conclusion> Undetermined rhythm Otherwise normal ECG
--- NOTE | 2018-02-17 09:53 | CARD ---
APPROVED REPORT Date of service: 02/16/2018 EKG Measurement Heart [id number] <Conclusion> Atrial flutter with variable AV block Nonspecific ST and T wave abnormality Abnormal ECG
== END 2018-02-16 10:56 ==
LOC: C.ER 00:26
DX: I48.92 Unspecified atrial flutter (principal); I13.0 Hypertensive heart and chronic kidney disease with heart failure and stage 1 through stage 4 chronic kidney disease, or unspecified chronic kidney disease; I50.9 Heart failure, unspecified; N18.9 Chronic kidney disease, unspecified
CPT/HCPCS: 71045; 80053; 85025; 93005; 96374; 96375; 96376; 99285; J1885; J2060

== ENCOUNTER 2018-03-13 12:02 | Inpatient (IN) | payer MEDICARE ==
[2018-03-13 12:11] VITALS: BMI 28.0
[2018-03-13 13:17] LABS: BASO # 0.1 K/uL (0.0-0.2); EOS # 0.1 K/uL (0.0-0.7); EOS % 1.9 % (0.0-4.0); LYMPH # 1.6 K/uL (1.0-4.3); LYMPH % 22.7 % (20.0-40.0); MEAN CORPUSCULAR HEMOGLOBIN 31.2 pg (27.0-31.0); MEAN CORPUSCULAR HGB CONC 32.9 g/dL (33.0-37.0); MEAN PLATELET VOLUME 8.7 fL (7.2-11.7); MONO # 0.4 K/uL (0.0-0.8); NEUT # 4.7 K/uL (1.8-7.0); NEUT % 68.4 % (50.0-75.0); RBC 4.48 Mil/uL (4.40-5.90); RED CELL DISTRIBUTION WIDTH 12.9 % (11.5-14.5); WHITE BLOOD COUNT 6.9 K/uL (4.8-10.8)
[2018-03-13 13:18] LABS: MEAN CELL VOLUME 94.7 fL (80.0-94.0)
[2018-03-13 13:26] LABS: INR 1.5; PROTHROMBIN TIME 16.6 SECONDS (9.7-12.2)
--- NOTE | 2018-03-13 13:32 | RAD ---
Date of service: 03/13/2018 PROCEDURE: CHEST RADIOGRAPH, 1 VIEW HISTORY: SOB COMPARISON: 02/16/2018 FINDINGS: LUNGS: No interval consolidation. Possible similar granuloma and/or prominent vessel seen on end in the left perihilar locations. PLEURA: No pneumothorax or pleural fluid seen. Prior right apical pleural thickening more conspicuous on the prior study than the current study. CARDIOVASCULAR: There is presence of aortic atherosclerotic calcification on x-ray. Mild cardiomegaly. No significant appearing pulmonary venous congestion. OSSEOUS STRUCTURES: Bilateral shoulder arthrosis. Mild thoracic spondylosis. VISUALIZED UPPER ABDOMEN: Normal. OTHER FINDINGS: None. IMPRESSION: No interval pathology noted.
--- NOTE | 2018-03-13 13:41 | CT ---
Date of service: 03/13/2018 PROCEDURE: CT HEAD WITHOUT CONTRAST. HISTORY: dizziness COMPARISON: Noncontrast head CT performed 02/02/18 TECHNIQUE: Axial computed tomography images were obtained through the head/brain without intravenous contrast. Radiation dose: Total exam DLP = 1099.46 mGy-cm. This CT exam was performed using one or more of the following dose reduction techniques: Automated exposure control, adjustment of the mA and/or kV according to patient size, and/or use of iterative reconstruction technique. FINDINGS: HEMORRHAGE: No intracranial hemorrhage. BRAIN: Diffuse atrophy with prominence of the ventricles and sulci noted. No mass effect or edema. Dense bilateral basal ganglia calcifications. Intracranial vascular calcifications. Moderate periventricular and subcortical white matter hypodensities, which are nonspecific, but often seen with chronic microvascular ischemic disease. VENTRICLES: No hydrocephalus. CALVARIUM: Unremarkable. PARANASAL SINUSES: Mucosal thickening of the ethmoid air cells. MASTOID AIR CELLS: Unremarkable as visualized. No inflammatory changes. OTHER FINDINGS: Radiopaque density noted at anterior aspect of the left maxillary sinus as well as to the left of the left orbital rim. IMPRESSION: Moderate nonspecific white matter changes. Generalized atrophy. Punctate radiopaque density noted within the anterior aspect of the left maxillary sinus soft tissues as well as adjacent to the left orbital rim.
[2018-03-13 13:46] LABS: B-TYPE NATRIURETIC PEPTIDE 319 pg/mL (0-900)
[2018-03-13 14:01] LABS: ALB/GLOB RATIO 1.1 (1.0-2.1); ALBUMIN 4.6 g/dL (3.5-5.0); ALT/SGPT 12 U/L (21-72); AST/SGOT 26 U/L (17-59); BLOOD UREA NITROGEN 44 mg/dL (9-20); CALCIUM 8.8 mg/dl (8.6-10.4); GFR NON-AFRICAN AMERICAN 40
--- NOTE | 2018-03-13 14:53 | C.PDOC ---
History Of Present Illness 72 year old male, whose past medical history includes CVA, Atrial Fibrillation, Parkinson's Disease, DM and HTN, presents to the ED for evaluation of generalized weakness which began this morning. 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 He was seen in the ED in the past for similar presentation and was transported to intermediate. Patient states he noticed a spasm to his left hand earlier today, which has since resolved. Patient denies chest pain, shortness of breath, or any other complaints at this time. Time Seen by Provider: 03/13/18 12:08 Chief Complaint (Nursing): Upper Extremity Problem/Injury History Per: Patient History/Exam Limitations: no limitations Onset/Duration Of Symptoms: Hrs Current Symptoms Are (Timing): Better Additional History Per: Patient Past Medical History Reviewed: Historical Data, Nursing Documentation, Vital Signs Vital Signs: Last Vital Signs Temp 97.8 F 03/13/18 12:11 Pulse 95 H 03/13/18 14:27 Resp 16 03/13/18 14:27 BP 109/70 03/13/18 14:27 Pulse Ox 100 03/13/18 14:27 - Medical History PMH: Arthritis, Atrial Fibrillation (A flutter), CHF, Diabetes, Deep Vein Thrombosis, HTN, Hypercholesterolemia, Hyperlipidemia, Peripheral Edema, Chronic Kidney Disease, Seizures Surgical History: No Surg Hx - [facility] Procedures DILATE R EXT ILIAC ART W DRUG-ELUT INTRALUM, PERC (01/17/15) DILATION OF RIGHT COMMON ILIAC ARTERY, PERCUTANEOUS APPROACH (01/17/15) INSERTION OF INTRALUM DEV INTO INF VENA CAVA, PERC APPROACH (01/17/15) INTRODUCE OTH THROMBOLYTIC IN PERIPH VEIN, PERC (01/17/15) TETANUS TOXOID ADMINIST (12/06/14) Family History: States: Unknown Family Hx - Social History Hx Tobacco Use: No Hx Alcohol Use: No Hx Substance Use: No - Immunization History Hx Tetanus Toxoid Vaccination: Yes (12/06/2014) Hx Influenza Vaccination: Yes Hx Pneumococcal Vaccination: Yes Review Of Systems Cardiovascular: Negative for: Chest Pain Respiratory: Negative for: Shortness of Breath Neurological: Positive for: Weakness (left-sided) Physical Exam - Physical Exam Appears: Non-toxic, No Acute Distress Skin: Normal Color, Warm, Dry Head: Atraumatic, Normacephalic Eye(s): right: Other (unable to adduct ), left: Normal Inspection Oral Mucosa: Moist Neck: Supple Chest: Symmetrical, No Deformity, No Tenderness Cardiovascular: Rhythm Regular, No Murmur Respiratory: Normal Breath Sounds, No Rales, No Rhonchi, No Wheezing Extremity: Normal ROM, Capillary Refill (less than 2 seconds ) Neurological/Psych: Oriented x3, Normal Speech, Normal Cognition, Normal Sensa tion, Other (4+/5 strength to left extremity, 5/5 strength to right extremity ) ED Course And Treatment - Laboratory Results Result Diagrams: 03/13/18 13:12 03/13/18 13:12 ECG: Interpreted By Me, Viewed By Me ECG Rhythm: Sinus Rhythm Interpretation Of ECG: Normal Sinus Rhythm at rate 92bpm. First degree AV block. Normal azis. Nonspecific ST/T wave changes. Rate From EC O2 Sat by Pulse Oximetry: 100 (on RA) Pulse Ox Interpretation: Normal Medical Decision Making Medical Decision Making: Assessment: left sided weakness Plan: * bloodwork * urinalysis * CT Head * CXR * EKG * IV Fluids * reassess and disposition Progress: Bloodwork, urinalysis, CT Head, CXR, EKG ordered and reviewed. IV Fluids given. Disposition Discussed With : Ken Oliva Doctor Will See Patient In The: Hospital Counseled Patient/Family Regarding: Studies Performed, Diagnosis - Disposition Disposition: HOSPITALIZED Disposition Time: 14:52 Condition: FAIR Instructions: Weakness (ED) Forms: [facility] (Greek) - Clinical Impression Clinical Impression: Weakness, Dehydration
[2018-03-13] MEDS: Sodium Chloride 0.9% 1,000 ML IV SCH (15:40)
[2018-03-13 16:07] LABS: SQUAMOUS EPITHIAL 1 /hpf (0-5); URINE BACTERIA RARE (<OCC); URINE BILIRUBIN NEGATIVE (NEGATIVE); URINE BLOOD 3+ (NEGATIVE); URINE CLARITY Clear (Clear); URINE COLOR Yellow (YELLOW); URINE GLUCOSE (UA) NORMAL (Normal); URINE LEUKOCYTE ESTERASE NEG Leu/uL (Negative); URINE PROTEIN NEGATIVE (NEGATIVE); URINE UROBILINOGEN NORMAL mg/dL (0.2-1.0)
[2018-03-13] MEDS ORDERED: Sodium Chloride 0.9% 1,000 ML ONE (17:03)
--- NOTE | 2018-03-13 19:26 | CP.PCM.HP ---
History of Present Illness - History of Present Illness History of Present Illness: chief complaint: Patient was brought to the emergency room because of the weakness, and also not able to speak. Patient History of present illness 72year-old male with history of hypertension, diabetes, peripheral vascular disease, DVT, history of left leg nonunion, status post surgery, left upper extremity reflex osteodystrophy, and associated with the neuropathy, cervical spinal disorders with cervical spondylosis, repeated falls in the past came to the emergency room, Patient is morning woke up, at the time he was not feeling well, he started having some weakness in the left upper and the lower extremity more than usual, and associate with the not able to speak. Because of that the detention concerned about him and he was sent him to the emergency room. In the emergency room patient was evaluated. He underwent extensive workup. After some time patient started making sentences and he was started talking. He did not have any fall. He did not have any injuries during this time Patient is currently participating in exercise program in the detention. He is on multiple medications including antiparkinson medication. Past medical history: osteoarthritis, history of congestive heart failure, diabetes, deep venous thrombosis, hypertension, hypercholesterolemia, hyperlipidemia, peripheral vascular disease, chronic renal insufficiency, reflex osteodystrophy, cervical spinal stenosis and also left upper extremity weakness. Surgical history: Peripheral arterial intervention, thrombolysis therapy to the left leg, history of left leg nonunion, and grafting intramedullary nailing in the past. Allergies no known drug allergic personal history: Lifelong nonsmoker, nonalcoholic. ROS: Patient is currently no headache, complaining of some neck pain, weakness in the left upper extremity, and also contractures noted, pain present in the left upper tone throughout the forearm, also complaining of some pain in the left lower extremity, she denies any chest pain or shortness of breath, denies any nausea vomiting On examination: Vital signs stable, mild tachycardia noted. Alert awake oriented 3, he has no functional residual weakness at this time. HEENT PERRLA. Neck minimal stiffness noted. Bilateral good air entry no wheezing or rales noted irregular heart sound nontender abdomen. Bilateral pedal edema noted more on the left side. Patient has a significant weakness in the left upper extremity with muscle wasting. Also has a muscle wasting in the left lower extremity. Chest x-ray is nonspecific. Chest x-ray nonspecific. Labs reviewed no new changes noted. 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 Patient in the past had multiple episodes of altered mental status, few episodes of hypoglycemia as well as sepsis was not noted in the past. Now admitted with a similar problems. Slurred speech with left-sided weakness. Likely vasogenic. We will get a neurological evaluation. Patient also recently started on anti-Parkinson disease treatment, but not unclear at this time. Meanwhile will continue the medications. IV hydration. Fall precautions. Aspiration precautions. 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 And he also has a significant peripheral nerve damage because of that. Continue the anticoagulation. Aspiration precautions. DVT GI prophylaxis. And glucose monitoring. Present on Admission - Present on Admission Any Indicators Present on Admission: No History of DVT/PE: No History of Uncontrolled Diabetes: No Urinary Catheter: No Decubitus Ulcer Present: No Past Patient History - Infectious Disease Hx of Infectious Diseases: None - Past Medical History & Family History Past Medical History?: Yes - Past Social History Smoking Status: Light Smoker < 10 Cigarettes Daily - CARDIAC Hx Atrial Fibrillation: Yes (A flutter) Hx Congestive Heart Failure: Yes Hx Hypercholesterolemia: Yes Hx Hypertension: Yes Hx Peripheral Edema: Yes - PULMONARY Hx Respiratory Disorders: No - NEUROLOGICAL Hx Seizures: Yes - HEENT Hx HEENT Problems: Yes Other/Comment: difficulty seeing far - RENAL Hx Chronic Kidney Disease: Yes - ENDOCRINE/METABOLIC Hx Endocrine Disorders: Yes Hx Diabetes Mellitus Type 2: Yes - HEMATOLOGICAL/ONCOLOGICAL Hx Blood Disorders: No - INTEGUMENTARY Hx Dermatological Problems: Yes Other/Comment: discoloration BLE - MUSCULOSKELETAL/RHEUMATOLOGICAL Hx Arthritis: Yes - GASTROINTESTINAL Hx Gastrointestinal Disorders: Yes Hx Constipation: Yes - GENITOURINARY/GYNECOLOGICAL Hx Genitourinary Disorders: Yes - PSYCHIATRIC Hx Substance Use: No - SURGICAL HISTORY Hx Surgeries: Yes Hx Angioplasty: Yes Hx Orthopedic Surgery: Yes (RODDING TO LE) - ANESTHESIA Hx Anesthesia: Yes Hx Anesthesia Reactions: No Hx Malignant Hyperthermia: No Meds Allergies/Adverse Reactions: Allergies Allergy/AdvReac Type Severity Reaction Status Date / Time No Known Allergies Allergy Verified 03/13/18 12:10 Results - Vital Signs Recent Vital Signs: Last Vital Signs Temp 97.8 F 03/13/18 12:11 Pulse 94 H 03/13/18 19:10 Resp 13 03/13/18 19:10 BP 144/84 03/13/18 19:10 Pulse Ox 100 03/13/18 19:10 - Labs Result Diagrams: 03/13/18 13:12 03/13/18 13:12 Labs: Laboratory Results - last 24 hr 03/13/18 03/13/18 03/13/18 12:09 13:12 13:12 WBC 6.9 RBC 4.48 Hgb 14.0 Hct 42.4 MCV 94.7 H D MCH 31.2 H MCHC 32.9 L RDW 12.9 Plt Count 251 MPV 8.7 Neut % (Auto) 68.4 Lymph % (Auto) 22.7 Gibson % (Auto) 6.0 Eos % (Auto) 1.9 Baso % (Auto) 1.0 Neut # (Auto) 4.7 Lymph # (Auto) 1.6 Gibson # (Auto) 0.4 Eos # (Auto) 0.1 Baso # (Auto) 0.1 PT 16.6 H INR 1.5 APTT 35 H Sodium Potassium Chloride Carbon Dioxide Anion Gap BUN Creatinine Est GFR ( Amer) Est GFR (Non-Af Amer) POC Glucose (mg/dL) 154 H Random Glucose Calcium Magnesium Total Bilirubin AST ALT Alkaline Phosphatase Troponin I NT-Pro-B Natriuret Pep Total Protein Albumin Globulin Albumin/Globulin Ratio TSH 3rd Generation Urine Color Urine Clarity Urine pH Ur Specific Luther Urine Protein Urine Glucose (UA) Urine Ketones Urine Blood Urine Nitrate Urine Bilirubin Urine Urobilinogen Ur Leukocyte Esterase Urine WBC (Auto) Urine RBC (Auto) Ur Squamous Epith Cells Urine Bacteria Hyaline Casts Digoxin 03/13/18 03/13/18 03/13/18 13:12 14:03 15:57 WBC RBC Hgb Hct MCV MCH MCHC RDW Plt Count MPV Neut % (Auto) Lymph % (Auto) Gibson % (Auto) Eos % (Auto) Baso % (Auto) Neut # (Auto) Lymph # (Auto) Gibson # (Auto) Eos # (Auto) Baso # (Auto) PT INR APTT Sodium 138 Potassium 5.0 Chloride 99 Carbon Dioxide 28 Anion Gap 16 BUN 44 H Creatinine 1.7 H Est GFR ( Amer) 48 Est GFR (Non-Af Amer) 40 POC Glucose (mg/dL) Random Glucose 166 H Calcium 8.8 Magnesium 2.2 Total Bilirubin 0.6 AST 26 ALT 12 L Alkaline Phosphatase 115 Troponin I < 0.0120 NT-Pro-B Natriuret Pep 319 Total Protein 8.6 H Albumin 4.6 Globulin 4.0 H Albumin/Globulin Ratio 1.1 TSH 3rd Generation 2.14 Urine Color Yellow Urine Clarity Clear Urine pH 5.0 Ur Specific Luther 1.016 Urine Protein Negative Urine Glucose (UA) Normal Urine Ketones Negative Urine Blood 3+ H Urine Nitrate Negative Urine Bilirubin Negative Urine Urobilinogen Normal Ur Leukocyte Esterase Neg Urine WBC (Auto) 7 H Urine RBC (Auto) 156 H Ur Squamous Epith Cells 1 Urine Bacteria Rare Hyaline Casts 6-10 H Digoxin < 0.4 L
[2018-03-13 19:33] VITALS: RESP 20
[2018-03-13] MEDS: Albuterol-Ipratrop 3 mg / 0.5 (3 ml) UD INH SCH (23:00)
[2018-03-14] MEDS: Sodium Chloride 0.9% 1,000 ML IV SCH ×2 (01:03→14:02)
[2018-03-14] MEDS: Albuterol-Ipratrop 3 mg / 0.5 (3 ml) UD INH SCH ×4 (03:51→19:01)
[2018-03-14] MEDS: GlipiZIDE 2.5 mg Tab PO SCH ×2 (08:20→17:06)
[2018-03-14] MEDS ORDERED: Home Med 1 UNIT (Metformin [Glucophage] 1,000 MG) PO SCH (10:00)
[2018-03-14] MEDS ORDERED: Bacitracin Ointment 30 GM TUBE TOP SCH (10:00)
--- NOTE | 2018-03-14 12:39 | CP.PCM.PN ---
Subjective - Date & Time of Evaluation Date of Evaluation: 03/14/18 Time of Evaluation: 12:36 - Subjective Subjective: Patient is having increasing pain in the left upper extremity. Shaking noted. But he is sitting up comfortably otherwise. Had a BM this morning and also making urine, leg swelling is less On examination: Vital signs stable. Chest good air entry bilateral wheezing noted minimally Regular HS Edema 1+ in the noted Assessment and recommendation: 72-year-old male with a history of atrial flutter fibrillation intermittent, sinus tachycardia in the past, DVT, currently on anticoagulation. Patient also has a history of nonunion of the left leg. History of cervical spinal stenosis, associated with the cervical spondylosis with the left arm weakness, and associate with a lower motor neuron type weakness. Questionable Parkinson disease on medicine. Admitted to the hospital with altered mental status. Most likely metabolic. Currently feeling better. We will discuss with the social work specialist for possible discharge plan. We will continue the IV fluid. We will monitor him next 24 hours, and will follow the patient. And physical therapy Objective - Vital Signs/Intake and Output Vital Signs (last 24 hours): Temp Pulse Resp BP Pulse Ox 97.6 F 101 H 20 154/98 H 98 03/14/18 08:00 03/14/18 08:00 03/14/18 08:00 03/14/18 10:57 03/14/18 08:00 - Medications Medications: Current Medications Albuterol/Ipratropium (Duoneb 3 Mg/0.5 Mg (3 Ml) Ud) 3 ml INH RQ6 [facility] Last Admin: 03/14/18 07:20 Dose: 3 ml Apixaban (Eliquis) 5 mg PO BID [facility] Last Admin: 03/14/18 09:18 Dose: 5 mg Aspirin (Aspirin Chewable) 81 mg PO DAILY [facility] Last Admin: 03/14/18 09:18 Dose: 81 mg Bacitracin (Bacitracin) 0 gm TOP DAILY [facility] Last Admin: 03/14/18 09:19 Dose: 1 applic Carbamazepine (Tegretol) 400 mg PO DAILY [facility] Last Admin: 03/14/18 09:18 Dose: 400 mg Carbidopa/Levodopa (Sinemet) 1 tab PO TID [facility] Last Admin: 03/14/18 09:16 Dose: 1 tab Carvedilol (Coreg) 12.5 mg PO BID [facility] Last Admin: 03/14/18 10:57 Dose: 12.5 mg Cyclobenzaprine HCl (Flexeril) 5 mg PO DAILY [facility] Last Admin: 03/14/18 09:16 Dose: 5 mg Digoxin (Digoxin) 0.125 mg PO DAILY@1800 [facility] Furosemide (Lasix) 20 mg PO DAILY [facility] Last Admin: 03/14/18 09:16 Dose: 20 mg Gabapentin (Neurontin) 600 mg PO TID [facility] Last Admin: 03/14/18 09:16 Dose: 600 mg Glipizide (Glucotrol) 2.5 mg PO BIDAC [facility] Last Admin: 03/14/18 08:20 Dose: 2.5 mg Sodium Chloride (Sodium Chloride 0.45%) 500 mls @ 45 mls/hr IV .[id number] [facility] Last Admin: 03/13/18 20:00 Dose: 45 mls/hr Sodium Chloride (Sodium Chloride 0.9%) 1,000 mls @ 75 mls/hr IV .[id number] [facility] Ibuprofen (Motrin Tab) 800 mg PO Q6H PRN PRN Reason: Pain, moderate (4-7) Last Admin: 03/13/18 21:31 Dose: 800 mg Rosuvastatin Calcium (Crestor) 5 mg PO HS [facility] Last Admin: 03/13/18 21:31 Dose: 5 mg Tramadol HCl (Ultram) 50 mg PO Q6H PRN PRN Reason: Pain, severe (8-10) Last Admin: 03/14/18 08:00 Dose: 50 mg - Labs Labs: 03/13/18 13:12 03/13/18 13:12 PT 16.6 SECONDS (9.7-12.2) H 03/13/18 13:12 INR 1.5 03/13/18 13:12 APTT 35 SECONDS (21-34) H 03/13/18 13:12
[2018-03-14] MEDS: Digoxin 125 mcg (0.125 mg) Tab PO SCH (17:05)
--- NOTE | 2018-03-14 18:40 | CARD ---
APPROVED REPORT Date of service: 03/13/2018 EKG Measurement Heart [id number] <Conclusion> Sinus rhythm with 1st degree AV block ST & T wave abnormality, consider inferior ischemia Abnormal ECG
[2018-03-14] MEDS ORDERED: Baclofen 5 mg Tab PO ONE (21:39)
[2018-03-15] MEDS: Albuterol-Ipratrop 3 mg / 0.5 (3 ml) UD INH SCH ×4 (01:08→19:11)
[2018-03-15] MEDS: Sodium Chloride 0.9% 1,000 ML IV SCH ×2 (01:35→15:33)
[2018-03-15 06:42] LABS: BASO % 0.4 % (0.0-2.0); EOS # 0.1 K/uL (0.0-0.7); EOS % 1.5 % (0.0-4.0); HEMOGLOBIN 14.4 g/dL (12.0-18.0); LYMPH # 1.9 K/uL (1.0-4.3); LYMPH % 22.9 % (20.0-40.0); MEAN CELL VOLUME 92.8 fL (80.0-94.0); MEAN CORPUSCULAR HEMOGLOBIN 31.3 pg (27.0-31.0); MEAN CORPUSCULAR HGB CONC 33.7 g/dL (33.0-37.0); MEAN PLATELET VOLUME 8.9 fL (7.2-11.7); MONO # 0.6 K/uL (0.0-0.8); MONO % 6.9 % (0.0-10.0); NEUT # 5.7 K/uL (1.8-7.0); NEUT % 68.3 % (50.0-75.0); NRBC % 0.1 % (0.0-2.0); RBC 4.59 Mil/uL (4.40-5.90); RED CELL DISTRIBUTION WIDTH 12.7 % (11.5-14.5); WHITE BLOOD COUNT 8.4 K/uL (4.8-10.8)
[2018-03-15 07:01] LABS: ALB/GLOB RATIO 1.1 (1.0-2.1); ALBUMIN 4.4 g/dL (3.5-5.0); ALT/SGPT 7 U/L (21-72); AST/SGOT 17 U/L (17-59); BLOOD UREA NITROGEN 34 mg/dL (9-20); CALCIUM 8.6 mg/dl (8.6-10.4); GFR NON-AFRICAN AMERICAN 59
[2018-03-15] MEDS: GlipiZIDE 2.5 mg Tab PO SCH ×2 (08:01→16:29)
[2018-03-15] MEDS: Bacitracin 500 Units/gm Oint Foilpak UD TOP SCH (11:21)
[2018-03-15] MEDS: Digoxin 125 mcg (0.125 mg) Tab PO SCH (17:43)
--- NOTE | 2018-03-15 20:33 | CP.PCM.PN ---
Subjective - Date & Time of Evaluation Date of Evaluation: 03/15/18 Time of Evaluation: 20:32 - Subjective Subjective: Also complaining of numbness and tingling in the patient is having increasing symptoms of pain over the left upper extremity. Sensation of heaviness. He is eating well. Weakness noted. No nausea no vomiting On examination: Vital signs stable. Chest good air entry regular hsl nontender abdomen no pedal edema Patient has a left upper extremity significant weakness, and the lower motor neuron deficit present Assessment and recognition: 72-year-old male with a history of hypertension, hypercholesterolemia, diabetes and also has a history of cervical spondylosis associated with the lower motor neuron deficit associated with weakness in the left upper extremity in the symptoms of numbness tingling. Patient admitted with altered mental status secondary to metabolic encephalopathy improving at this time. Possible dehydration. Multiple medications. Clinically stable. Possible discharge plan on Saturday Objective - Vital Signs/Intake and Output Vital Signs (last 24 hours): Temp Pulse Resp BP Pulse Ox 97.8 F 80 20 145/92 H 96 03/15/18 15:00 03/15/18 15:00 03/15/18 15:00 03/15/18 17:43 03/15/18 15:00 Intake and Output: 03/15/18 03/16/18 18:59 06:59 Intake Total 650 Output Total 240 Balance 410 - Medications Medications: Current Medications Albuterol/Ipratropium (Duoneb 3 Mg/0.5 Mg (3 Ml) Ud) 3 ml INH RQ6 [facility] Last Admin: 03/15/18 19:11 Dose: Not Given Apixaban (Eliquis) 5 mg PO BID [facility] Last Admin: 03/15/18 17:44 Dose: 5 mg Aspirin (Aspirin Chewable) 81 mg PO DAILY [facility] Last Admin: 03/15/18 09:53 Dose: 81 mg Bacitracin (Bacitracin) 2 ea TOP DAILY [facility] Last Admin: 03/15/18 11:21 Dose: 2 ea Carbamazepine (Tegretol) 400 mg PO DAILY [facility] Last Admin: 03/15/18 09:53 Dose: 400 mg Carbidopa/Levodopa (Sinemet) 1 tab PO TID [facility] Last Admin: 03/15/18 17:44 Dose: 1 tab Carvedilol (Coreg) 12.5 mg PO BID [facility] Last Admin: 03/15/18 17:43 Dose: 12.5 mg Cyclobenzaprine HCl (Flexeril) 5 mg PO DAILY [facility] Last Admin: 03/15/18 09:54 Dose: 5 mg Digoxin (Digoxin) 0.125 mg PO DAILY@1800 [facility] Last Admin: 03/15/18 17:43 Dose: 0.125 mg Furosemide (Lasix) 20 mg PO DAILY [facility] Last Admin: 03/15/18 10:06 Dose: 20 mg Gabapentin (Neurontin) 600 mg PO TID [facility] Last Admin: 03/15/18 17:44 Dose: 600 mg Glipizide (Glucotrol) 2.5 mg PO BIDAC [facility] Last Admin: 03/15/18 16:29 Dose: 2.5 mg Sodium Chloride (Sodium Chloride 0.45%) 500 mls @ 45 mls/hr IV .Q11H7M [facility] Last Admin: 03/15/18 07:48 Dose: Not Given Sodium Chloride (Sodium Chloride 0.9%) 1,000 mls @ 75 mls/hr IV .[id number] [facility] Last Admin: 03/15/18 15:33 Dose: Not Given Ibuprofen (Motrin Tab) 800 mg PO Q6H PRN PRN Reason: Pain, moderate (4-7) Last Admin: 03/15/18 04:32 Dose: 800 mg Rosuvastatin Calcium (Crestor) 5 mg PO HS [facility] Last Admin: 03/14/18 21:34 Dose: 5 mg Tramadol HCl (Ultram) 50 mg PO Q6H PRN PRN Reason: Pain, severe (8-10) Last Admin: 03/15/18 17:44 Dose: 50 mg - Labs Labs: 03/15/18 06:32 03/15/18 06:32 PT 16.6 SECONDS (9.7-12.2) H 03/13/18 13:12 INR 1.5 03/13/18 13:12 APTT 35 SECONDS (21-34) H 03/13/18 13:12
[2018-03-16] MEDS: Albuterol-Ipratrop 3 mg / 0.5 (3 ml) UD INH SCH ×4 (01:32→19:25)
[2018-03-16] MEDS: GlipiZIDE 2.5 mg Tab PO SCH ×2 (08:11→16:42)
--- NOTE | 2018-03-16 08:41 | CP.PCM.PN ---
Subjective - Date & Time of Evaluation Date of Evaluation: 03/16/18 Time of Evaluation: 08:40 - Subjective Subjective: Patient is this morning more comfortable than last night. He was having more pain yesterday. Patient is currently on tramadol every 6 hourly, but he wanted dated every 4 hourly. But I recommended not to increase the dose because of the metabolic encephalopathy. On examination: Vital signs stable. Chest good air entry. Regular heart sounds. Weakness in the left upper extremity present. Assessment and recognition: 72-year-old male admitted to the hospital with altered mental status. Most likely patient has a nonspecific metabolic encephalopathy improving. We will continue the current treatment. Possible discharge planning to rehab in the morning. We will continue the physical therapy. Objective - Vital Signs/Intake and Output Vital Signs (last 24 hours): Temp Pulse Resp BP Pulse Ox 98.3 F 103 H 20 101/65 98 03/16/18 00:00 03/16/18 00:00 03/16/18 00:00 03/16/18 02:38 03/16/18 00:00 Intake and Output: 03/16/18 03/16/18 06:59 18:59 Intake Total 100 Output Total 160 Balance -60 - Medications Medications: Current Medications Albuterol/Ipratropium (Duoneb 3 Mg/0.5 Mg (3 Ml) Ud) 3 ml INH RQ6 [facility] Last Admin: 03/16/18 07:05 Dose: 3 ml Apixaban (Eliquis) 5 mg PO BID [facility] Last Admin: 03/15/18 17:44 Dose: 5 mg Aspirin (Aspirin Chewable) 81 mg PO DAILY [facility] Last Admin: 03/15/18 09:53 Dose: 81 mg Bacitracin (Bacitracin) 2 ea TOP DAILY [facility] Last Admin: 03/15/18 11:21 Dose: 2 ea Carbamazepine (Tegretol) 400 mg PO DAILY [facility] Last Admin: 03/15/18 09:53 Dose: 400 mg Carbidopa/Levodopa (Sinemet) 1 tab PO TID [facility] Last Admin: 03/15/18 17:44 Dose: 1 tab Carvedilol (Coreg) 12.5 mg PO BID [facility] Last Admin: 03/15/18 17:43 Dose: 12.5 mg Cyclobenzaprine HCl (Flexeril) 5 mg PO DAILY [facility] Last Admin: 03/15/18 09:54 Dose: 5 mg Digoxin (Digoxin) 0.125 mg PO DAILY@1800 [facility] Last Admin: 03/15/18 17:43 Dose: 0.125 mg Furosemide (Lasix) 20 mg PO DAILY [facility] Last Admin: 03/15/18 10:06 Dose: 20 mg Gabapentin (Neurontin) 600 mg PO TID [facility] Last Admin: 03/15/18 17:44 Dose: 600 mg Glipizide (Glucotrol) 2.5 mg PO BIDAC [facility] Last Admin: 03/16/18 08:11 Dose: 2.5 mg Sodium Chloride (Sodium Chloride 0.45%) 500 mls @ 45 mls/hr IV .Q11H7M [facility] Last Admin: 03/16/18 03:27 Dose: Not Given Ibuprofen (Motrin Tab) 800 mg PO Q6H PRN PRN Reason: Pain, moderate (4-7) Last Admin: 03/15/18 04:32 Dose: 800 mg Rosuvastatin Calcium (Crestor) 5 mg PO HS [facility] Last Admin: 03/15/18 21:44 Dose: 5 mg Tramadol HCl (Ultram) 50 mg PO Q6H PRN PRN Reason: Pain, severe (8-10) Last Admin: 03/16/18 05:22 Dose: 50 mg - Labs Labs: 03/15/18 06:32 03/15/18 06:32 PT 16.6 SECONDS (9.7-12.2) H 03/13/18 13:12 INR 1.5 03/13/18 13:12 APTT 35 SECONDS (21-34) H 03/13/18 13:12
[2018-03-16] MEDS: Bacitracin 500 Units/gm Oint Foilpak UD TOP SCH (09:25)
[2018-03-16] MEDS: Digoxin 125 mcg (0.125 mg) Tab PO SCH (17:34)
[2018-03-17] MEDS: Albuterol-Ipratrop 3 mg / 0.5 (3 ml) UD INH SCH ×3 (01:27→13:49)
[2018-03-17] MEDS: GlipiZIDE 2.5 mg Tab PO SCH ×2 (08:29→16:54)
[2018-03-17] MEDS: Bacitracin 500 Units/gm Oint Foilpak UD TOP SCH (09:23)
[2018-03-17 15:45] VITALS: TEMP 97.7; O2SAT 97
[2018-03-17 17:27] VITALS: PULSE 65
[2018-03-17] MEDS: Digoxin 125 mcg (0.125 mg) Tab PO SCH (17:27)
[2018-03-17 19:39] VITALS: BP 119/71
[2018-03-17 19:40] VITALS: PULSE 121
--- NOTE | 2018-03-20 09:33 | CP.PCM.DIS ---
Provider - Provider Date of Admission: 03/16/18 08:41 Attending physician: Ken Oliva MD Consults: 03/16/18 06:46 Wound Care [Nursing Referral for Wound Care] Routine Comment: Physician Instructions: Reason For Exam: open wound on left ba area Time Spent in preparation of Discharge (in minutes): 45 Hospital Course - Lab Results Lab Results: Most Recent Lab Values WBC 8.4 K/uL (4.8-10.8) 03/15/18 06:32 RBC 4.59 Mil/uL (4.40-5.90) 03/15/18 06:32 Hgb 14.4 g/dL (12.0-18.0) 03/15/18 06:32 Hct 42.6 % (35.0-51.0) 03/15/18 06:32 MCV 92.8 fL (80.0-94.0) 03/15/18 06:32 MCH 31.3 pg (27.0-31.0) H 03/15/18 06:32 MCHC 33.7 g/dL (33.0-37.0) 03/15/18 06:32 RDW 12.7 % (11.5-14.5) 03/15/18 06:32 Plt Count 265 K/uL (130-400) 03/15/18 06:32 MPV 8.9 fL (7.2-11.7) 03/15/18 06:32 Neut % (Auto) 68.3 % (50.0-75.0) 03/15/18 06:32 Lymph % (Auto) 22.9 % (20.0-40.0) 03/15/18 06:32 [place] % (Auto) 6.9 % (0.0-10.0) 03/15/18 06:32 Eos % (Auto) 1.5 % (0.0-4.0) 03/15/18 06:32 Baso % (Auto) 0.4 % (0.0-2.0) 03/15/18 06:32 Neut # (Auto) 5.7 K/uL (1.8-7.0) 03/15/18 06:32 Lymph # (Auto) 1.9 K/uL (1.0-4.3) 03/15/18 06:32 [place] # (Auto) 0.6 K/uL (0.0-0.8) 03/15/18 06:32 Eos # (Auto) 0.1 K/uL (0.0-0.7) 03/15/18 06:32 Baso # (Auto) 0.0 K/uL (0.0-0.2) 03/15/18 06:32 PT 16.6 SECONDS (9.7-12.2) H 03/13/18 13:12 INR 1.5 03/13/18 13:12 APTT 35 SECONDS (21-34) H 03/13/18 13:12 Sodium 138 mmol/L (132-148) 03/15/18 06:32 Potassium 4.7 mmol/L (3.6-5.2) 03/15/18 06:32 Chloride 105 mmol/L (98-107) 03/15/18 06:32 Carbon Dioxide 22 mmol/L (22-30) 03/15/18 06:32 Anion Gap 16 (10-20) 03/15/18 06:32 BUN 34 mg/dL (9-20) H 03/15/18 06:32 Creatinine 1.2 mg/dL (0.8-1.5) 03/15/18 06:32 Est GFR ( Amer) > 60 03/15/18 06:32 Est GFR (Non-Af Amer) 59 03/15/18 06:32 POC Glucose (mg/dL) 196 mg/dL (65-110) H 03/17/18 16:32 Random Glucose 202 mg/dL (75-110) H D 03/15/18 06:32 Calcium 8.6 mg/dl (8.6-10.4) 03/15/18 06:32 Magnesium 2.2 mg/dL (1.6-2.3) 03/13/18 13:12 Total Bilirubin 0.5 mg/dL (0.2-1.3) 03/15/18 06:32 AST 17 U/L (17-59) D 03/15/18 06:32 ALT 7 U/L (21-72) L D 03/15/18 06:32 Alkaline Phosphatase 126 U/L (38-126) 03/15/18 06:32 Troponin I < 0.0120 ng/mL (0.00-0.120) 03/13/18 13:12 NT-Pro-B Natriuret Pep 319 pg/mL (0-900) 03/13/18 13:12 Total Protein 8.3 g/dL (6.3-8.3) 03/15/18 06:32 Albumin 4.4 g/dL (3.5-5.0) 03/15/18 06:32 Globulin 3.9 gm/dL (2.2-3.9) 03/15/18 06:32 Albumin/Globulin Ratio 1.1 (1.0-2.1) 03/15/18 06:32 TSH 3rd Generation 2.14 mIU/L (0.46-4.68) 03/13/18 13:12 Urine Color Yellow (YELLOW) 03/13/18 15:57 Urine Clarity Clear (Clear) 03/13/18 15:57 Urine pH 5.0 (5.0-8.0) 03/13/18 15:57 Ur Specific [place] 1.016 (1.003-1.030) 03/13/18 15:57 Urine Protein Negative mg/dL (NEGATIVE) 03/13/18 15:57 Urine Glucose (UA) Normal mg/dL (Normal) 03/13/18 15:57 Urine Ketones Negative mg/dL (NEGATIVE) 03/13/18 15:57 Urine Blood 3+ (NEGATIVE) H 03/13/18 15:57 Urine Nitrate Negative (NEGATIVE) 03/13/18 15:57 Urine Bilirubin Negative (NEGATIVE) 03/13/18 15:57 Urine Urobilinogen Normal mg/dL (0.2-1.0) 03/13/18 15:57 Ur Leukocyte Esterase Neg [place]/uL (Negative) 03/13/18 15:57 Urine WBC (Auto) 7 /hpf (0-5) H 03/13/18 15:57 Urine RBC (Auto) 156 /hpf (0-3) H 03/13/18 15:57 Ur Squamous Epith Cells 1 /hpf (0-5) 03/13/18 15:57 Urine Bacteria Rare (<OCC) 03/13/18 15:57 Hyaline Casts 6-10 /lpf (0-2) H 03/13/18 15:57 Digoxin < 0.4 ng/mL (0.8-2.0) L 03/13/18 14:03 - Hospital Course Hospital Course: chief complaint: Patient was brought to the emergency room because of the weakness, and also not able to speak. Patient History of present illness 72year-old male with history of hypertension, diabetes, peripheral vascular disease, DVT, history of left leg nonunion, status post surgery, left upper extremity reflex osteodystrophy, and associated with the neuropathy, cervical spinal disorders with cervical spondylosis, repeated falls in the past came to the emergency room, Patient is morning woke up, at the time he was not feeling well, he started having some weakness in the left upper and the lower extremity more than usual, and associate with the not able to speak. Because of that the prison concerned about him and he was sent him to the emergency room. In the emergency room patient was evaluated. He underwent extensive workup. After some time patient started making sentences and he was started talking. He did not have any fall. He did not have any injuries during this time Patient is currently participating in exercise program in the prison. He is on multiple medications including antiparkinson medication. Past medical history: osteoarthritis, history of congestive heart failure, diabetes, deep venous thrombosis, hypertension, hypercholesterolemia, hyperlipidemia, peripheral vascular disease, chronic renal insufficiency, reflex osteodystrophy, cervical spinal stenosis and also left upper extremity weakness. Surgical history: Peripheral arterial intervention, thrombolysis therapy to the left leg, history of left leg nonunion, and grafting intramedullary nailing in the past. Allergies no known drug allergic personal history: Lifelong nonsmoker, nonalcoholic. ROS: Patient is currently no headache, complaining of some neck pain, weakness in the left upper extremity, and also contractures noted, pain present in the left upper tone throughout the forearm, also complaining of some pain in the left lower extremity, she denies any chest pain or shortness of breath, denies any nausea vomiting On examination: Vital signs stable, mild tachycardia noted. Alert awake oriented 3, he has no functional residual weakness at this time. HEENT PERRLA. Neck minimal stiffness noted. Bilateral good air entry no wheezing or rales noted irregular heart sound nontender abdomen. Bilateral pedal edema noted more on the left side. Patient has a significant weakness in the left upper extremity with muscle wasting. Also has a muscle wasting in the left lower extremity. Chest x-ray is nonspecific. Chest x-ray nonspecific. Labs reviewed no new changes noted. 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 Patient in the past had multiple episodes of altered mental status, few episodes of hypoglycemia as well as sepsis was not noted in the past. Now admitted with a similar problems. Slurred speech with left-sided weakness. Likely vasogenic. We will get a neurological evaluation. Patient also recently started on anti-Parkinson disease treatment, but not unclear at this time. Meanwhile will continue the medications. IV hydration. Fall precautions. Aspiration precautions. 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 And he also has a significant peripheral nerve damage because of that. Continue the anticoagulation. Aspiration precautions. DVT GI prophylaxis. And glucose monitoring. Course in the hospital: Patient was hospitalized with possible suspectedMetabolic encephalopathy. Patient started on IV fluid. The medication was withheld for 24 hours. He started feeling better. He is left arm pain started hurting more, he started needing medication for pain including tramadol. And on and off patient was receiving Toradol injection intravenously. Patient otherwise clinically stable. I discussed with him. He is clinically stable he can be discharged to rehab. Final diagnosis: Acute metabolic encephalopathy. Acute chronic acute on chronic pain syndrome. 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 Diabetes hypertension and hypercholesterolemia Discharge Plan - Follow Up Plan Condition: FAIR Disposition: TRANSF TO SNF Instructions: Smoking: Not Just Harmful to Your Lungs and Heart, Dehydration, Adult (DC), Quitting Smoking, Heart Failure (DC), Weakness (ED) Additional Instructions: Please admit patient under Dr. Oliva service- Please call Dr. Oliva upon patient arrival to the facility Continue medication as per med. rec. Referrals: Ken Oliva MD [Staff Provider] -
== END 2018-03-17 20:34 | DRG 71 ==
LOC: C.ER 12:02 → C.9E 14:52 → C.5S 19:05 → OBSVTOIN 03-16 08:41
PROVIDERS: ADMIT Internal Medicine; ATTEND Internal Medicine
DX: G93.41 Metabolic encephalopathy (principal); I69.354 Hemiplegia and hemiparesis following cerebral infarction affecting left non-dominant side; I13.0 Hypertensive heart and chronic kidney disease with heart failure and stage 1 through stage 4 chronic kidney disease, or unspecified chronic kidney disease; I48.92 Unspecified atrial flutter; I82.502 Chronic embolism and thrombosis of unspecified deep veins of left lower extremity; M47.12 Other spondylosis with myelopathy, cervical region; E11.22 Type 2 diabetes mellitus with diabetic chronic kidney disease; E11.51 Type 2 diabetes mellitus with diabetic peripheral angiopathy without gangrene; E78.00 Pure hypercholesterolemia, unspecified; E86.0 Dehydration; G20 Parkinson's disease; I50.9 Heart failure, unspecified; I48.91 Unspecified atrial fibrillation; N18.9 Chronic kidney disease, unspecified; F17.210 Nicotine dependence, cigarettes, uncomplicated; Z79.01 Long term (current) use of anticoagulants; M62.522 Muscle wasting and atrophy, not elsewhere classified, left upper arm; Q78.8 Other specified osteochondrodysplasias; E11.40 Type 2 diabetes mellitus with diabetic neuropathy, unspecified

== ENCOUNTER 2018-06-12 16:02 | Inpatient (IN) | payer MEDICARE ==
[2018-06-12 16:03] VITALS: BMI 28.0
--- NOTE | 2018-06-12 16:39 | C.PDOC ---
History Of Present Illness 72 y/o male c/o left leg weakness today when leaving pmd's office today that caused him to fall. pt hit head. denies loc and neck pain. pt has had weakness in this leg in the past that has caused him to fall. no cp or sob. pt reports he has left dvt and is on eliquis. <Daniela Villegas - Last Filed: 06/12/18 19:25> - HPI History Per: Patient History/Exam Limitations: no limitations Onset/Duration Of Symptoms: Hrs Recent travel outside of the [place]: No Additional History Per: Patient <Daniela Villegas - Last Filed: 06/12/18 19:25> <Quirino Muniz - Last Filed: 06/12/18 20:33> - HPI Time Seen by Provider: 06/12/18 16:16 Chief Complaint (Nursing): Trauma Past Medical History Reviewed: Historical Data, Nursing Documentation, Vital Signs Vital Signs: Last Vital Signs Temp 98.6 F 06/12/18 16:15 Pulse 99 H 06/12/18 16:15 Resp 17 06/12/18 16:15 BP 131/88 06/12/18 16:15 Pulse Ox 97 06/12/18 16:15 - Medical History PMH: Arthritis, Atrial Fibrillation (A flutter), CHF, Diabetes, Deep Vein Thrombosis, HTN, Hypercholesterolemia, Hyperlipidemia, Peripheral Edema, Chronic Kidney Disease, Seizures Surgical History: No Surg Hx - [facility] Procedures DILATE R EXT ILIAC ART W DRUG-ELUT INTRALUM, PERC (01/17/15) DILATION OF RIGHT COMMON ILIAC ARTERY, PERCUTANEOUS APPROACH (01/17/15) INSERTION OF INTRALUM DEV INTO INF VENA CAVA, PERC APPROACH (01/17/15) INTRODUCE OTH THROMBOLYTIC IN PERIPH VEIN, PERC (01/17/15) TETANUS TOXOID ADMINIST (12/06/14) Family History: States: Unknown Family Hx - Social History Hx Tobacco Use: No Hx Alcohol Use: No Hx Substance Use: No - Immunization History Hx Tetanus Toxoid Vaccination: Yes (12/06/2014) Hx Influenza Vaccination: Yes Hx Pneumococcal Vaccination: Yes <Daniela Villegas - Last Filed: 06/12/18 19:25> Vital Signs: Last Vital Signs Temp 98.6 F 06/12/18 16:15 Pulse 96 H 06/12/18 19:24 Resp 17 06/12/18 16:15 BP 168/105 H 06/12/18 19:24 Pulse Ox 97 06/12/18 19:25 - [facility] Procedures DILATE R EXT ILIAC ART W DRUG-ELUT INTRALUM, PERC (01/17/15) DILATION OF RIGHT COMMON ILIAC ARTERY, PERCUTANEOUS APPROACH (01/17/15) INSERTION OF INTRALUM DEV INTO INF VENA CAVA, PERC APPROACH (01/17/15) INTRODUCE OTH THROMBOLYTIC IN PERIPH VEIN, PERC (01/17/15) TETANUS TOXOID ADMINIST (12/06/14) <Quirino Muniz - Last Filed: 06/12/18 20:33> Review Of Systems Musculoskeletal: Negative for: Neck Pain Neurological: Positive for: Weakness (left leg). Negative for: Other (LOC ) <Daniela Villegas - Last Filed: 06/12/18 19:25> Physical Exam - Physical Exam Appears: Non-toxic, No Acute Distress Skin: Other (1 cm vertical shallow laceration in middle of forehead) Head: Normacephalic Eye(s): bilateral: Other (no castano sign) Nose: Discharge (dried blood in left nare ), No Septal Hematoma Gingiva: Other (intact) Neck: Supple Chest: Symmetrical, No Deformity Cardiovascular: Rhythm Regular, No Murmur Respiratory: Normal Breath Sounds, No Rales, No Rhonchi, No Wheezing Gastrointestinal/Abdominal: Bowel Sounds (normal), Soft, No Tenderness Back: No Other (cervical spine tenderness) Extremity: Normal ROM (In upper extremities), Swelling (left lower extremity swelling, not new) Neurological/Psych: Oriented x3, Normal Speech, Normal Sensation (intact) <Daniela Villegas - Last Filed: 06/12/18 19:25> ED Course And Treatment - Laboratory Results Result Diagrams: 06/12/18 18:00 06/12/18 18:00 ECG: Interpreted By Me, Viewed By Me ECG Rhythm: Sinus Rhythm ECG Interpretation: Normal Interpretation Of ECG: Normal sinus rhythm with sinus arrhythmia. Rate From EC O2 Sat by Pulse Oximetry: 97 (on RA) Pulse Ox Interpretation: Normal - CT Scan/US CT Head Other Rad Studies (CT/US): Read By Radiologist, Radiology Report Reviewed CT/US Interpretation: IMPRESSION: Generalized atrophy. Nonspecific white matter changes. <Daniela Villegas - Last Filed: 06/12/18 19:25> - Laboratory Results Result Diagrams: 06/12/18 18:00 06/12/18 19:45 Lab Results: Troponin I 0.0140 ng/mL (0.00-0.120) 06/12/18 18:00 Total Bilirubin 0.8 mg/dL (0.2-1.3) 06/12/18 18:00 AST 30 U/L (17-59) 06/12/18 18:00 ALT < 6 U/L (21-72) L 06/12/18 18:00 Alkaline Phosphatase 122 U/L (38-126) 06/12/18 18:00 Total Protein 8.1 g/dL (6.3-8.3) 06/12/18 18:00 Albumin 4.4 g/dL (3.5-5.0) 06/12/18 18:00 Globulin 3.7 gm/dL (2.2-3.9) 06/12/18 18:00 Albumin/Globulin Ratio 1.2 (1.0-2.1) 06/12/18 18:00 <Quirino Muniz - Last Filed: 06/12/18 20:33> Medical Decision Making Medical Decision Making: Plan: Labs EKG CT Head Urinalysis Labs slightly hemolyzed but elevated potassium. repeat specimen to be sent, s/o to Dr Muniz to follow. multiple attemtps to call Dr Felder, unable. <Daniela Villegas - Last Filed: 06/12/18 19:25> Medical Decision Making: Recieved signout from SHELLEY Villegas: 72 yr old male on eliquis for DVT p/w fall. CT negative. Labs w/ mild HyperK, without EKG changes of mentation changes or instability. EKG reviewed independently: no indication for calcium at this time. Repeat K 5.8, Pt in NAD, Insulin + albuterol given. Endorsed to DR. Oliva who is agreeable to plan. Pt in NAD, to tele at this time w/ Dr. Oliva. <Quirino Muniz - Last Filed: 06/12/18 20:33> Disposition - Disposition Disposition Time: 19:17 <Daniela Villegas - Last Filed: 06/12/18 19:25> <Quirino Muniz - Last Filed: 06/12/18 20:33> - Disposition Condition: STABLE Forms: [facility] (Russian) - Clinical Impression Clinical Impression: Fall, Laceration of forehead, Closed head injury Critical Care Time - Scribe Statement The provider has reviewed the documentation as recorded by the Scribe Zoya Song All medical record entries made by the Scribe were at my direction and personally dictated by me. I have reviewed the chart and agree that the record accurately reflects my personal performance of the history, physical exam, medical decision making, and the department course for this patient. I have also personally directed, reviewed, and agree with the discharge instructions and disposition. <Daniela Villegas - Last Filed: 06/12/18 19:25> Physician Patient Turnover Patient Signed Over To: Quirino Muniz Handoff Comments: f/u repeat potassium, treat if needed; eval gait and put on obs if needed <Daniela Villegas - Last Filed: 06/12/18 19:25>
[2018-06-12] MEDS ORDERED: Tdap Vaccine 0.5 ml Vial (10-64 yrs) IM ONE ×2 (17:22→18:03)
[2018-06-12 18:08] LABS: BASO # 0.1 K/uL (0.0-0.2); BASO % 0.9 % (0.0-2.0); EOS # 0.1 K/uL (0.0-0.7); EOS % 1.1 % (0.0-4.0); HEMOGLOBIN 14.3 g/dL (12.0-18.0); LYMPH # 1.5 K/uL (1.0-4.3); LYMPH % 24.5 % (20.0-40.0); MEAN CELL VOLUME 96.9 fL (80.0-94.0); MEAN CORPUSCULAR HEMOGLOBIN 31.6 pg (27.0-31.0); MEAN CORPUSCULAR HGB CONC 32.6 g/dL (33.0-37.0); MEAN PLATELET VOLUME 8.6 fL (7.2-11.7); MONO # 0.3 K/uL (0.0-0.8); MONO % 5.5 % (0.0-10.0); NEUT # 4.2 K/uL (1.8-7.0); NRBC % 0.1 % (0.0-2.0); RBC 4.51 Mil/uL (4.40-5.90); RED CELL DISTRIBUTION WIDTH 14.1 % (11.5-14.5); WHITE BLOOD COUNT 6.2 K/uL (4.8-10.8)
--- NOTE | 2018-06-12 18:08 | CT ---
Date of service: 06/12/2018 PROCEDURE: CT HEAD WITHOUT CONTRAST. HISTORY: fell hit head COMPARISON: Noncontrast head CT performed 03/13/18, brain MRI without contrast performed 04/05/17 TECHNIQUE: Axial computed tomography images were obtained through the head/brain without intravenous contrast. Radiation dose: Total exam DLP = 1106.09 mGy-cm. This CT exam was performed using one or more of the following dose reduction techniques: Automated exposure control, adjustment of the mA and/or kV according to patient size, and/or use of iterative reconstruction technique. FINDINGS: HEMORRHAGE: No intracranial hemorrhage. BRAIN: Diffuse atrophy with prominence of the ventricles and sulci noted. No mass effect or edema. Intracranial atherosclerosis. Bilateral basal ganglia calcifications. Scattered periventricular and subcortical white matter hypodensities, which are nonspecific, but often seen with chronic microvascular ischemic disease. Please note that MRI with diffusion imaging is more sensitive in the detection of acute ischemic event. VENTRICLES: No hydrocephalus. CALVARIUM: Unremarkable. PARANASAL SINUSES: Unremarkable as visualized. No significant inflammatory changes. MASTOID AIR CELLS: Unremarkable as visualized. No inflammatory changes. OTHER FINDINGS: Postsurgical changes/surgical material of the left zygoma. IMPRESSION: Generalized atrophy. Nonspecific white matter changes.
[2018-06-12 18:32] LABS: BLOOD UREA NITROGEN 18 mg/dL (9-20); CALCIUM 9.1 mg/dl (8.6-10.4); GFR NON-AFRICAN AMERICAN > 60
[2018-06-12 18:33] LABS: ALB/GLOB RATIO 1.2 (1.0-2.1); ALBUMIN 4.4 g/dL (3.5-5.0); ALT/SGPT < 6 U/L (21-72); AST/SGOT 30 U/L (17-59)
[2018-06-12 19:42] LABS: SQUAMOUS EPITHIAL 1 /hpf (0-5); URINE BACTERIA RARE (<OCC); URINE BILIRUBIN NEGATIVE (NEGATIVE); URINE BLOOD NEGATIVE (NEGATIVE); URINE CLARITY Clear (Clear); URINE COLOR Yellow (YELLOW); URINE GLUCOSE (UA) 3+ mg/dL (Normal); URINE LEUKOCYTE ESTERASE NEG Leu/uL (Negative); URINE PROTEIN 1+ mg/dL (NEGATIVE); URINE UROBILINOGEN NORMAL mg/dL (0.2-1.0)
[2018-06-12 20:02] LABS: BLOOD UREA NITROGEN 18 mg/dL (9-20); CALCIUM 9.2 mg/dl (8.6-10.4); GFR NON-AFRICAN AMERICAN > 60
[2018-06-12] MEDS ORDERED: Dextrose 50% SYRINGE Inj (50 ml) IV STA (20:19)
[2018-06-12] MEDS ORDERED: (Novolin R) Insulin Human Regular 100 units/ml vial IVP ONE (20:19)
[2018-06-12] MEDS ORDERED: Albuterol 0.083% Inhal Sol (2.5 mg/3 mL) UD ONE (20:46)
[2018-06-12] MEDS ORDERED: (Novolin R) Insulin Human Regular 100 units/ml vial ONE (20:46)
[2018-06-12] MEDS ORDERED: Dextrose 50% SYRINGE Inj (50 ml) ONE (20:46)
[2018-06-12] MEDS: Albuterol 0.083% Inhal Sol (2.5 mg/3 mL) UD INH SCH (21:10)
[2018-06-13] MEDS: Albuterol-Ipratrop 3 mg / 0.5 (3 ml) UD INH SCH ×3 (07:40→20:46)
[2018-06-13] MEDS: GlipiZIDE 2.5 mg Tab PO SCH ×2 (08:22→17:27)
[2018-06-13] MEDS: (Novolin R) Insulin Human Regular 100 units/ml vial SC SCH ×4 (08:23→21:21)
[2018-06-13 08:43] LABS: ALB/GLOB RATIO 1.2 (1.0-2.1); ALT/SGPT 11 U/L (21-72); AST/SGOT 22 U/L (17-59); BLOOD UREA NITROGEN 21 mg/dL (9-20); CALCIUM 9.1 mg/dl (8.6-10.4); GFR NON-AFRICAN AMERICAN 54
[2018-06-13 10:18] LABS: BASO % 0.6 % (0.0-2.0); EOS # 0.1 K/uL (0.0-0.7); HEMOGLOBIN 13.6 g/dL (12.0-18.0); LYMPH # 1.7 K/uL (1.0-4.3); LYMPH % 24.4 % (20.0-40.0); MEAN CELL VOLUME 96.6 fL (80.0-94.0); MEAN CORPUSCULAR HEMOGLOBIN 31.4 pg (27.0-31.0); MEAN CORPUSCULAR HGB CONC 32.5 g/dL (33.0-37.0); MEAN PLATELET VOLUME 9.7 fL (7.2-11.7); MONO # 0.4 K/uL (0.0-0.8); MONO % 5.4 % (0.0-10.0); NEUT # 4.7 K/uL (1.8-7.0); NEUT % 67.6 % (50.0-75.0); RBC 4.35 Mil/uL (4.40-5.90); RED CELL DISTRIBUTION WIDTH 13.6 % (11.5-14.5); WHITE BLOOD COUNT 6.9 K/uL (4.8-10.8)
--- NOTE | 2018-06-13 10:40 | CT ---
Date of service: 06/13/2018 PROCEDURE: CT HEAD WITHOUT CONTRAST. HISTORY: fall COMPARISON: Comparison is made with the previous study dated 06/12/2018 TECHNIQUE: Axial computed tomography images were obtained through the head/brain without intravenous contrast. Radiation dose: Total exam DLP = 1270.32 mGy-cm. This CT exam was performed using one or more of the following dose reduction techniques: Automated exposure control, adjustment of the mA and/or kV according to patient size, and/or use of iterative reconstruction technique. FINDINGS: HEMORRHAGE: No intracranial hemorrhage. BRAIN: No mass effect or edema. Volume loss and chronic microvascular white matter ischemic changes are again noted. VENTRICLES: Unremarkable. No hydrocephalus. CALVARIUM: Unremarkable. PARANASAL SINUSES: Unremarkable as visualized. No significant inflammatory changes. MASTOID AIR CELLS: Unremarkable as visualized. No inflammatory changes. OTHER FINDINGS: None. IMPRESSION: No evidence of acute intracranial hemorrhage mass effect or midline shift. Significant interval changes since the prior study.
--- NOTE | 2018-06-13 11:08 | CARD ---
APPROVED REPORT Date of service: 06/12/2018 EKG Measurement Heart [id number] <Conclusion> Normal sinus rhythm with sinus arrhythmia Normal ECG
[2018-06-13] MEDS: Digoxin 125 mcg (0.125 mg) Tab PO SCH (17:28)
[2018-06-14] MEDS: Albuterol-Ipratrop 3 mg / 0.5 (3 ml) UD INH SCH ×4 (01:45→21:11)
[2018-06-14] MEDS: (Novolin R) Insulin Human Regular 100 units/ml vial SC SCH ×4 (06:10→22:10)
--- NOTE | 2018-06-14 06:34 | CP.PCM.HP ---
History of Present Illness - History of Present Illness History of Present Illness: chief complaint: Patient had a fall while he was getting out of the doctor's office building. History of present illness 72year-old male with history of hypertension, diabetes, peripheral vascular disease, DVT, history of left leg nonunion, status post surgery, left upper extremity reflex osteodystrophy, and associated with the neuropathy, cervical spinal disorders with cervical spondylosis, repeated falls in the past came to the emergency room, After he had a fall while he was getting out of the doctor's office building. Patient had a fall, and he had a injury to the forehead at the time, called ambulance by the bystander, and he was brought into the [facility] emergency room. In the emergency room patient was monitored because of the anticoagulation patient needed hospitalization to monitor the neurological status and rule out any late bleeding into the brain. Patient is having mild headache. Past medical history: osteoarthritis, history of congestive heart failure, diabetes, deep venous thrombosis, hypertension, hypercholesterolemia, hyperlipidemia, peripheral vascular disease, chronic renal insufficiency, reflex osteodystrophy, cervical spinal stenosis and also left upper extremity weakness. Surgical history: Peripheral arterial intervention, thrombolysis therapy to the left leg, history of left leg nonunion, and grafting intramedullary nailing in the past. Allergies no known drug allergic personal history: Lifelong nonsmoker, nonalcoholic. ROS: Complaining of left arm pain . Some weakness in the left upper extremity noted. He is sitting up otherwise okay. Patient has a leg swelling bilaterally. He also has a skin ulcers, skin damage over the right foot. On examination: Vital signs stable, mild tachycardia noted. Alert awake oriented 3, he has no functional residual weakness at this time. HEENT PERRLA. Neck minimal stiffness noted. Bilateral good air entry no wheezing or rales noted regular heart sound nontender abdomen. Bilateral pedal edema noted more on the left side. Patient has a significant weakness in the left upper extremity with muscle wasting. Also has a muscle wasting in the left lower extremity. Chest x-ray is nonspecific. CT of the head is negative for any bleed Labs reviewed no new changes noted. 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 Patient in the past had multiple episodes of altered mental status, few episodes of hypoglycemia as well as sepsis was noted in the past. Patient now admitted with the fall, injury to the forehead. Patient also has a ulcers of the right foot. We will continue to monitor. Neurological status to be monitored We will get a CT scan of the brain, if it is negative possible discharge plan. Wound management and will follow the patient Present on Admission - Present on Admission Any Indicators Present on Admission: No History of DVT/PE: No History of Uncontrolled Diabetes: No Urinary Catheter: No Decubitus Ulcer Present: No Past Patient History - Infectious Disease Hx of Infectious Diseases: None - Past Medical History & Family History Past Medical History?: Yes - Past Social History Smoking Status: Current Some Days Smoker - CARDIAC Hx Cardiac Disorders: Yes (A-fib) Hx Congestive Heart Failure: Yes Hx Hypercholesterolemia: Yes Hx Hypertension: Yes - PULMONARY Hx Respiratory Disorders: No - NEUROLOGICAL Hx Neurological Disorder: Yes Hx Seizures: Yes - HEENT Hx HEENT Problems: Yes Other/Comment: difficulty seeing far - RENAL Hx Chronic Kidney Disease: Yes - ENDOCRINE/METABOLIC Hx Diabetes Mellitus Type 2: Yes - HEMATOLOGICAL/ONCOLOGICAL Hx Blood Disorders: No - INTEGUMENTARY Hx Dermatological Problems: Yes Other/Comment: discoloration BLE - MUSCULOSKELETAL/RHEUMATOLOGICAL Hx Arthritis: Yes - GASTROINTESTINAL Hx Gastrointestinal Disorders: Yes Hx Constipation: Yes - GENITOURINARY/GYNECOLOGICAL Hx Genitourinary Disorders: Yes - PSYCHIATRIC Hx Psychophysiologic Disorder: No Hx Substance Use: No - SURGICAL HISTORY Hx Surgeries: Yes Hx Angioplasty: Yes Hx Orthopedic Surgery: Yes (RODDING TO MAEVE) - ANESTHESIA Hx Anesthesia: Yes Hx Anesthesia Reactions: No Hx Malignant Hyperthermia: No Meds Allergies/Adverse Reactions: Allergies Allergy/AdvReac Type Severity Reaction Status Date / Time No Known Allergies Allergy Verified 03/13/18 12:10 Results - Vital Signs Recent Vital Signs: Last Vital Signs Temp 98.1 F 06/13/18 23:20 Pulse 109 H 06/14/18 01:00 Resp 20 06/13/18 23:20 BP 149/97 H 06/13/18 23:20 Pulse Ox 98 06/13/18 23:20 - Labs Result Diagrams: 06/13/18 10:11 06/13/18 07:53 Labs: Laboratory Results - last 24 hr 06/13/18 06/13/18 06/13/18 06:13 07:53 10:11 WBC 6.9 RBC 4.35 L Hgb 13.6 Hct 42.0 MCV 96.6 H MCH 31.4 H MCHC 32.5 L RDW 13.6 Plt Count 218 MPV 9.7 Neut % (Auto) 67.6 Lymph % (Auto) 24.4 [place] % (Auto) 5.4 Eos % (Auto) 2.0 Baso % (Auto) 0.6 Neut # (Auto) 4.7 Lymph # (Auto) 1.7 [place] # (Auto) 0.4 Eos # (Auto) 0.1 Baso # (Auto) 0.0 Sodium 134 Potassium 5.3 H Chloride 98 Carbon Dioxide 27 Anion Gap 14 BUN 21 H Creatinine 1.3 Est GFR ( Amer) > 60 Est GFR (Non-Af Amer) 54 POC Glucose (mg/dL) 381 H Random Glucose 450 H* D Calcium 9.1 Total Bilirubin 0.4 AST 22 ALT 11 L D Alkaline Phosphatase 128 H Total Protein 7.3 Albumin 4.0 Globulin 3.3 Albumin/Globulin Ratio 1.2 06/13/18 06/13/18 06/13/18 11:29 16:45 21:03 WBC RBC Hgb Hct MCV MCH MCHC RDW Plt Count MPV Neut % (Auto) Lymph % (Auto) [place] % (Auto) Eos % (Auto) Baso % (Auto) Neut # (Auto) Lymph # (Auto) [place] # (Auto) Eos # (Auto) Baso # (Auto) Sodium Potassium Chloride Carbon Dioxide Anion Gap BUN Creatinine Est GFR ( Amer) Est GFR (Non-Af Amer) POC Glucose (mg/dL) 391 H 349 H 349 H Random Glucose Calcium Total Bilirubin AST ALT Alkaline Phosphatase Total Protein Albumin Globulin Albumin/Globulin Ratio 06/14/18 05:57 WBC RBC Hgb Hct MCV MCH MCHC RDW Plt Count MPV Neut % (Auto) Lymph % (Auto) [place] % (Auto) Eos % (Auto) Baso % (Auto) Neut # (Auto) Lymph # (Auto) [place] # (Auto) Eos # (Auto) Baso # (Auto) Sodium Potassium Chloride Carbon Dioxide Anion Gap BUN Creatinine Est GFR ( Amer) Est GFR (Non-Af Amer) POC Glucose (mg/dL) 401 H* Random Glucose Calcium Total Bilirubin AST ALT Alkaline Phosphatase Total Protein Albumin Globulin Albumin/Globulin Ratio
--- NOTE | 2018-06-14 06:38 | CP.PCM.DIS ---
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 Comment: Physician Instructions: Reason For Exam: History of CHF Time Spent in preparation of Discharge (in minutes): 25 Hospital Course - Lab Results Lab Results: Most Recent Lab Values WBC 6.9 K/uL (4.8-10.8) 06/13/18 10:11 RBC 4.35 Mil/uL (4.40-5.90) L 06/13/18 10:11 Hgb 13.6 g/dL (12.0-18.0) 06/13/18 10:11 Hct 42.0 % (35.0-51.0) 06/13/18 10:11 MCV 96.6 fL (80.0-94.0) H 06/13/18 10:11 MCH 31.4 pg (27.0-31.0) H 06/13/18 10:11 MCHC 32.5 g/dL (33.0-37.0) L 06/13/18 10:11 RDW 13.6 % (11.5-14.5) 06/13/18 10:11 Plt Count 218 K/uL (130-400) 06/13/18 10:11 MPV 9.7 fL (7.2-11.7) 06/13/18 10:11 Neut % (Auto) 67.6 % (50.0-75.0) 06/13/18 10:11 Lymph % (Auto) 24.4 % (20.0-40.0) 06/13/18 10:11 [place] % (Auto) 5.4 % (0.0-10.0) 06/13/18 10:11 Eos % (Auto) 2.0 % (0.0-4.0) 06/13/18 10:11 Baso % (Auto) 0.6 % (0.0-2.0) 06/13/18 10:11 Neut # (Auto) 4.7 K/uL (1.8-7.0) 06/13/18 10:11 Lymph # (Auto) 1.7 K/uL (1.0-4.3) 06/13/18 10:11 [place] # (Auto) 0.4 K/uL (0.0-0.8) 06/13/18 10:11 Eos # (Auto) 0.1 K/uL (0.0-0.7) 06/13/18 10:11 Baso # (Auto) 0.0 K/uL (0.0-0.2) 06/13/18 10:11 Sodium 134 mmol/L (132-148) 06/13/18 07:53 Potassium 5.3 mmol/L (3.6-5.2) H 06/13/18 07:53 Chloride 98 mmol/L (98-107) 06/13/18 07:53 Carbon Dioxide 27 mmol/L (22-30) 06/13/18 07:53 Anion Gap 14 (10-20) 06/13/18 07:53 BUN 21 mg/dL (9-20) H 06/13/18 07:53 Creatinine 1.3 mg/dL (0.8-1.5) 06/13/18 07:53 Est GFR ( Amer) > 60 06/13/18 07:53 Est GFR (Non-Af Amer) 54 06/13/18 07:53 POC Glucose (mg/dL) 401 mg/dL (65-110) H* 06/14/18 05:57 Random Glucose 450 mg/dL (75-110) H* D 06/13/18 07:53 Calcium 9.1 mg/dl (8.6-10.4) 06/13/18 07:53 Total Bilirubin 0.4 mg/dL (0.2-1.3) 06/13/18 07:53 AST 22 U/L (17-59) 06/13/18 07:53 ALT 11 U/L (21-72) L D 06/13/18 07:53 Alkaline Phosphatase 128 U/L (38-126) H 06/13/18 07:53 Troponin I 0.0140 ng/mL (0.00-0.120) 06/12/18 18:00 Total Protein 7.3 g/dL (6.3-8.3) 06/13/18 07:53 Albumin 4.0 g/dL (3.5-5.0) 06/13/18 07:53 Globulin 3.3 gm/dL (2.2-3.9) 06/13/18 07:53 Albumin/Globulin Ratio 1.2 (1.0-2.1) 06/13/18 07:53 Urine Color Yellow (YELLOW) 06/12/18 19:23 Urine Clarity Clear (Clear) 06/12/18 19:23 Urine pH 5.0 (5.0-8.0) 06/12/18 19:23 Ur Specific [place] 1.014 (1.003-1.030) 06/12/18 19:23 Urine Protein 1+ mg/dL (NEGATIVE) H 06/12/18 19:23 Urine Glucose (UA) 3+ mg/dL (Normal) H 06/12/18 19:23 Urine Ketones Negative mg/dL (NEGATIVE) 06/12/18 19:23 Urine Blood Negative (NEGATIVE) 06/12/18 19:23 Urine Nitrate Negative (NEGATIVE) 06/12/18 19:23 Urine Bilirubin Negative (NEGATIVE) 06/12/18 19:23 Urine Urobilinogen Normal mg/dL (0.2-1.0) 06/12/18 19:23 Ur Leukocyte Esterase Neg [place]/uL (Negative) 06/12/18 19:23 Urine WBC (Auto) 1 /hpf (0-5) 06/12/18 19:23 Urine RBC (Auto) 2 /hpf (0-3) 06/12/18 19:23 Ur Squamous Epith Cells 1 /hpf (0-5) 06/12/18 19:23 Urine Bacteria Rare (<OCC) 06/12/18 19:23 - Hospital Course Hospital Course: Patient was not able to be get discharged today because of the weakness. Patient is having difficult time in getting up and go walking. He will definitely need a rehab evaluation and management Discharge Plan - Follow Up Plan Condition: STABLE Disposition: HOME/ ROUTINE Instructions: Preventing Falls in the Older Adult, Closed Head Injury (DC) Additional Instructions: Follow up with Dr. Oliva in one week Follow up with repair clerk Dr. Younger Please return to nearest ED for any new or worsening symptoms. Referrals: Ken Oliva MD [Staff Provider] - Gustavo Younger DPM [Staff Provider] -
--- NOTE | 2018-06-14 07:23 | PCM.RRT ---
STAFF HOME THERAPY RN Nurses Assessment - Situation Date: 06/14/18 Time STAFF HOME THERAPY RN was called: 05:52 STAFF HOME THERAPY RN Responder Arrival Time:: 05:53 STAFF HOME THERAPY RN Location:: Med/Surg Room Number: 569B STAFF HOME THERAPY RN Reason for Call: Tachycardia, Hypertension STAFF HOME THERAPY RN Called By: RN - IV IV Inserted during STAFF HOME THERAPY RN?: No - Respiratory STAFF HOME THERAPY RN Delivery Method: Room Air Received Nebulizer Treatments: No Was the Patient Ventilated with Bag/Mask 100% O2?: No Secretions Suctioned?: No Was the Patient Intubated?: No Was the Patient Placed on a Ventilator?: No - Medication Medications Administered During STAFF HOME THERAPY RN: Insulin. Gabapentin. Flexeril - Diagnostic Test Ordered EKG: No Chest X-Ray: No CT Scan: No CPR started during [facility]AFF HOME THERAPY RN?: No - Vital Signs Vital Signs: Rapid Response Vital Sign Blood Pressure 212/134 Pulse Rate 177 Respiratory Rate 24 Temperature 98.7 F Oxygen Saturation 96 - Time STAFF HOME THERAPY RN Ended Time STAFF HOME THERAPY RN Ended: 06:18 - Vital Signs at end of STAFF HOME THERAPY RN Vital Signs at end of STAFF HOME THERAPY RN: Rapid Response End Vital Sign Blood Pressure 111/74 Pulse Rate 114 Respiratory Rate 20 Temperature 98.7 F O2 Sat by Pulse Oximetry 98 I.Reason for STAFF HOME THERAPY RN - A) Acute Change in Patient: Subjective: House doctor note STAFF HOME THERAPY RN called at 5:52 for elevated BP, HR; Per nursing, SBP was in 180s, HR 150s- 160s Initial vitals upon exam: 145/71 BP 141 HR 20 RR 94% RA BG 401 ISS protocol was followed. Gabapentin 600, Flexeril 5 mg P0 given for L spasmodic arm pain Patient denies any acute chest pain, palpitations, sob Vitals at end of RR: 111/74 BP 120 HR 20 RR 96% RA - Respiratory Oxygen Delivery Method: Room Air - Constitutional Appears: Non-toxic, No Acute Distress - Head Head Exam: ATRAUMATIC, NORMAL INSPECTION, NORMOCEPHALIC - Eyes Eye Exam: EOMI, Normal appearance - Respiratory Exam Respiratory Exam: Clear to Ausculation Bilateral, NORMAL BREATHING PATTERN. absent: Accessory Muscle Use, Respiratory Distress - Cardiovascular Exam Cardiovascular Exam: Tachycardia, Irregular Rhythm, +S1, +S2 - GI/Abdominal Exam GI & Abdominal Exam: Soft, Normal Bowel Sounds. absent: Distended, Firm, Guarding, Tenderness - Neurological Exam Neurological Exam: Alert, Awake, Oriented x3 - Extremities Exam Extremities Exam: Normal Capillary Refill, Normal Inspection
[2018-06-14] MEDS ORDERED: (Novolin R) Insulin Human Regular 100 units/ml vial SC SCH (07:31)
[2018-06-14] MEDS: GlipiZIDE 2.5 mg Tab PO SCH ×2 (08:09→16:41)
[2018-06-14 12:00] LABS: BASO % 0.6 % (0.0-2.0); EOS # 0.1 K/uL (0.0-0.7); EOS % 1.2 % (0.0-4.0); HEMOGLOBIN 13.7 g/dL (12.0-18.0); LYMPH # 1.5 K/uL (1.0-4.3); LYMPH % 24.3 % (20.0-40.0); MEAN CELL VOLUME 96.6 fL (80.0-94.0); MEAN CORPUSCULAR HEMOGLOBIN 32.2 pg (27.0-31.0); MEAN CORPUSCULAR HGB CONC 33.3 g/dL (33.0-37.0); MEAN PLATELET VOLUME 9.7 fL (7.2-11.7); MONO # 0.3 K/uL (0.0-0.8); MONO % 5.3 % (0.0-10.0); NEUT # 4.2 K/uL (1.8-7.0); NEUT % 68.6 % (50.0-75.0); NRBC % 0.1 % (0.0-2.0); RBC 4.24 Mil/uL (4.40-5.90); RED CELL DISTRIBUTION WIDTH 13.9 % (11.5-14.5); WHITE BLOOD COUNT 6.1 K/uL (4.8-10.8)
[2018-06-14] MEDS ORDERED: Lidocaine 5% Patch TD ONE (12:00)
[2018-06-14] MEDS ORDERED: (Novolin R) Insulin Human Regular 100 units/ml vial SC ONE (12:02)
[2018-06-14 12:21] LABS: ALB/GLOB RATIO 1.2 (1.0-2.1); ALBUMIN 3.9 g/dL (3.5-5.0); ALT/SGPT < 6 U/L (21-72); AST/SGOT 16 U/L (17-59); BLOOD UREA NITROGEN 27 mg/dL (9-20); GFR NON-AFRICAN AMERICAN 46
--- NOTE | 2018-06-14 13:47 | CP.PCM.CON ---
History of Present Illness - History of Present Illness History of Present Illness: Podiatry consult note for Dr. Younger Reason for consult: right leg ulcer This is a 71 year old male with PMHx CHF, DM, HTN, PVD, DVT, HLD, reflex osteodystrophy who presents brought in from shelter due to trauma/fall. Patient states he has swelling to the left lower extremity with calf pain for quiet a while and right lower leg ulcer, however cant recall exactly for how long. Denies seeing a scrum project manager in the past. denies any other pedal complains. no f/n/v/sob. PMHx: CHF, DM, HTN, PVD, DVT, HLD, reflex osteodystrophy PSHx: Multiple vascular interventions, thrombolysis of the left leg, left leg non-union fracture repair Allergies: NKDA Social: Smoker, denies alcohol, drugs. Came from [facility] where he was there for rehab. PMD: Dr. Oliva Past Patient History - Infectious Disease Hx of Infectious Diseases: None - Past Medical History & Family History Past Medical History?: Yes - Past Social History Smoking Status: Current Some Days Smoker - CARDIAC Hx Cardiac Disorders: Yes (A-fib) Hx Congestive Heart Failure: Yes Hx Hypercholesterolemia: Yes Hx Hypertension: Yes - PULMONARY Hx Respiratory Disorders: No - NEUROLOGICAL Hx Neurological Disorder: Yes Hx Seizures: Yes - HEENT Hx HEENT Problems: Yes Other/Comment: difficulty seeing far - RENAL Hx Chronic Kidney Disease: Yes - ENDOCRINE/METABOLIC Hx Diabetes Mellitus Type 2: Yes - HEMATOLOGICAL/ONCOLOGICAL Hx Blood Disorders: No - INTEGUMENTARY Hx Dermatological Problems: Yes Other/Comment: discoloration BLE - MUSCULOSKELETAL/RHEUMATOLOGICAL Hx Arthritis: Yes - GASTROINTESTINAL Hx Gastrointestinal Disorders: Yes Hx Constipation: Yes - GENITOURINARY/GYNECOLOGICAL Hx Genitourinary Disorders: Yes - PSYCHIATRIC Hx Psychophysiologic Disorder: No Hx Substance Use: No - SURGICAL HISTORY Hx Surgeries: Yes Hx Angioplasty: Yes Hx Orthopedic Surgery: Yes (SANTOSH TO MAEVE) - ANESTHESIA Hx Anesthesia: Yes Hx Anesthesia Reactions: No Hx Malignant Hyperthermia: No Meds Allergies/Adverse Reactions: Allergies Allergy/AdvReac Type Severity Reaction Status Date / Time No Known Allergies Allergy Verified 03/13/18 12:10 - Medications Medications: Current Medications Albuterol/Ipratropium (Duoneb 3 Mg/0.5 Mg (3 Ml) Ud) 3 ml INH RQ6 [facility] Last Admin: 06/14/18 13:26 Dose: Not Given Carbamazepine (Tegretol) 400 mg PO DAILY [facility] Last Admin: 06/14/18 09:06 Dose: 400 mg Carbidopa/Levodopa (Sinemet) 1 tab PO TID [facility] Last Admin: 06/14/18 12:59 Dose: 1 tab Carvedilol (Coreg) 12.5 mg PO BID [facility] Last Admin: 06/14/18 09:06 Dose: 12.5 mg Cyclobenzaprine HCl (Flexeril) 5 mg PO DAILY [facility] Last Admin: 06/14/18 09:06 Dose: Not Given Digoxin (Digoxin) 0.125 mg PO DAILY@1800 [facility] Last Admin: 06/13/18 17:28 Dose: 0.125 mg Furosemide (Lasix) 20 mg PO DAILY [facility] Last Admin: 06/14/18 09:06 Dose: 20 mg Gabapentin (Neurontin) 600 mg PO TID [facility] Last Admin: 06/14/18 12:58 Dose: 600 mg [facility]) [facility] Insulin Human Regular (Novolin R) 0 unit SC [facility]; Protocol Metformin HCl (Glucophage) 500 mg PO BID [facility] Last Admin: 06/14/18 09:05 Dose: 500 mg Rosuvastatin Calcium (Crestor) 5 mg PO HS [facility] Last Admin: 06/13/18 21:30 Dose: 5 mg Physical Exam - Constitutional Appears: Well, Non-toxic, No Acute Distress - Head Exam Head Exam: ATRAUMATIC, NORMOCEPHALIC - Eye Exam Eye Exam: Normal appearance Pupil Exam: NORMAL ACCOMODATION - ENT Exam ENT Exam: Mucous Membranes Moist - Respiratory Exam Respiratory Exam: NORMAL BREATHING PATTERN - Cardiovascular Exam Cardiovascular Exam: REGULAR RHYTHM, +S1, +S2 - Extremities Exam Additional comments: B/L lower extremity exam: Vascular: DP/PT nonpalpable, TG warm to warm on right cool on the left, CFT <3 secs x 10, moderate edema noted on the left foot and leg derm: superficial ulceration measuring approximately 2 cm x 2cm with 100% granular base on anterior lower leg, no malodor, no tunneling or tracking, no clinical signs of infection.Deep fissure noted to the posterior aspect of the right heel, no open lesion. Moderate edema noted to the left lower extremity with minimal pain neuro: protective sensation diminished b/l Results - Vital Signs Recent Vital Signs: Last Vital Signs Temp 97.8 F 06/14/18 07:00 Pulse 117 H 06/14/18 07:00 Resp 20 06/14/18 07:00 BP 106/73 06/14/18 09:06 Pulse Ox 98 06/14/18 07:00 - Labs Result Diagrams: 06/14/18 11:46 06/14/18 11:46 Labs: Laboratory Results - last 24 hr 06/13/18 06/13/18 06/14/18 16:45 21:03 05:57 WBC RBC Hgb Hct MCV MCH MCHC RDW Plt Count MPV Neut % (Auto) Lymph % (Auto) [place] % (Auto) Eos % (Auto) Baso % (Auto) Neut # (Auto) Lymph # (Auto) [place] # (Auto) Eos # (Auto) Baso # (Auto) Sodium Potassium Chloride Carbon Dioxide Anion Gap BUN Creatinine Est GFR ( Amer) Est GFR (Non-Af Amer) POC Glucose (mg/dL) 349 H 349 H 401 H* Random Glucose Calcium Total Bilirubin AST ALT Alkaline Phosphatase Total Protein Albumin Globulin Albumin/Globulin Ratio 06/14/18 06/14/18 06/14/18 07:09 11:10 11:46 WBC 6.1 RBC 4.24 L Hgb 13.7 Hct 41.0 MCV 96.6 H MCH 32.2 H MCHC 33.3 RDW 13.9 Plt Count 233 MPV 9.7 Neut % (Auto) 68.6 Lymph % (Auto) 24.3 [place] % (Auto) 5.3 Eos % (Auto) 1.2 Baso % (Auto) 0.6 Neut # (Auto) 4.2 Lymph # (Auto) 1.5 [place] # (Auto) 0.3 Eos # (Auto) 0.1 Baso # (Auto) 0.0 Sodium Potassium Chloride Carbon Dioxide Anion Gap BUN Creatinine Est GFR ( Amer) Est GFR (Non-Af Amer) POC Glucose (mg/dL) 440 H* 467 H* Random Glucose Calcium Total Bilirubin AST ALT Alkaline Phosphatase Total Protein Albumin Globulin Albumin/Globulin Ratio 06/14/18 11:46 WBC RBC Hgb Hct MCV MCH MCHC RDW Plt Count MPV Neut % (Auto) Lymph % (Auto) [place] % (Auto) Eos % (Auto) Baso % (Auto) Neut # (Auto) Lymph # (Auto) [place] # (Auto) Eos # (Auto) Baso # (Auto) Sodium 132 Potassium 5.6 H Chloride 98 Carbon Dioxide 26 Anion Gap 14 BUN 27 H Creatinine 1.5 Est GFR ( Amer) 55 Est GFR (Non-Af Amer) 46 POC Glucose (mg/dL) Random Glucose 521 H* Calcium 9.0 Total Bilirubin 0.3 AST 16 L D ALT < 6 L D Alkaline Phosphatase 119 Total Protein 7.3 Albumin 3.9 Globulin 3.3 Albumin/Globulin Ratio 1.2 Assessment & Plan - Assessment and Plan (Free Text) Assessment: 72 yo male with pmhx of htn, diabetes, PVD, hx of DVT, neuropathy seen and evaluated for right leg ulcer; stable Plan: Patient seen and evaluated Seen with the attending, Dr Younger chart, labs and vitals reviewed Arterial studies of b/l LE ordered venous duplex of the left leg ordered right leg dressing with DSD Podiatry will continue to follow the patient multipodus boots ordered thank you for the consult
[2018-06-14] MEDS: Digoxin 125 mcg (0.125 mg) Tab PO SCH (17:51)
[2018-06-15] MEDS: Albuterol-Ipratrop 3 mg / 0.5 (3 ml) UD INH SCH ×4 (02:39→20:36)
[2018-06-15] MEDS: GlipiZIDE 2.5 mg Tab PO SCH ×2 (08:03→17:00)
[2018-06-15] MEDS: (Novolin R) Insulin Human Regular 100 units/ml vial SC SCH ×4 (09:49→22:15)
--- NOTE | 2018-06-15 16:35 | CP.PCM.PN ---
Subjective - Date & Time of Evaluation Date of Evaluation: 06/15/18 Time of Evaluation: 16:30 - Subjective Subjective: Podiatry progress note for Dr. Younger This is a 71 year old male with PMHx CHF, DM, HTN, PVD, DVT, HLD, reflex osteodystrophy who presents brought in from alf due to trauma/fall. Denies acute overnight events. denies any other pedal complains. no f/n/v/sob. Objective - Vital Signs/Intake and Output Vital Signs (last 24 hours): Temp Pulse Resp BP Pulse Ox 98.4 F 110 H 20 106/60 95 06/15/18 07:00 06/15/18 07:30 06/15/18 07:00 06/15/18 09:49 06/15/18 07:00 Intake and Output: 06/15/18 06/15/18 06:59 18:59 Intake Total 100 Output Total 350 Balance -250 - Medications Medications: Current Medications Albuterol/Ipratropium (Duoneb 3 Mg/0.5 Mg (3 Ml) Ud) 3 ml INH RQ6 [facility] Last Admin: 06/15/18 13:37 Dose: Not Given Carbamazepine (Tegretol) 400 mg PO DAILY [facility] Last Admin: 06/15/18 09:49 Dose: 400 mg Carbidopa/Levodopa (Sinemet) 1 tab PO TID [facility] Last Admin: 06/15/18 09:48 Dose: 1 tab Carvedilol (Coreg) 12.5 mg PO BID [facility] Last Admin: 06/15/18 09:48 Dose: 12.5 mg Cyclobenzaprine HCl (Flexeril) 5 mg PO DAILY [facility] Last Admin: 06/15/18 10:35 Dose: Not Given Digoxin (Digoxin) 0.125 mg PO DAILY@1800 [facility] Last Admin: 06/14/18 17:51 Dose: 0.125 mg Furosemide (Lasix) 20 mg PO DAILY [facility] Last Admin: 06/15/18 09:49 Dose: 20 mg Gabapentin (Neurontin) 600 mg PO TID [facility] Last Admin: 06/15/18 09:48 Dose: 600 mg [facility]) [facility] Last Admin: 06/15/18 08:03 Dose: 5 mg Insulin Human Regular (Novolin R) 0 unit SC [facility]; Protocol Last Admin: 06/15/18 09:49 Dose: 10 unit Metformin HCl (Glucophage) 500 mg PO BID [facility] Last Admin: 06/15/18 09:48 Dose: 500 mg Rosuvastatin Calcium (Crestor) 5 mg PO HS [facility] Last Admin: 06/14/18 22:05 Dose: 5 mg - Labs Labs: 06/14/18 11:46 06/14/18 11:46 - Constitutional Appears: Well, Non-toxic, No Acute Distress - Head Exam Head Exam: ATRAUMATIC, NORMOCEPHALIC - Eye Exam Eye Exam: Normal appearance - ENT Exam ENT Exam: Mucous Membranes Moist - Cardiovascular Exam Cardiovascular Exam: REGULAR RHYTHM, +S1, +S2 - Extremities Exam Additional comments: B/L lower extremity exam: Vascular: DP/PT nonpalpable, TG warm to warm on right cool on the left, CFT <3 secs x 10, moderate edema noted on the left foot and leg derm: superficial ulceration measuring approximately 2 cm x 2cm with 100% granular base on anterior lower leg, no malodor, no tunneling or tracking, no clinical signs of infection.Deep fissure noted to the posterior aspect of the right heel, no open lesion. Moderate edema noted to the left lower extremity with minimal pain neuro: protective sensation diminished b/l - Neurological Exam Neurological Exam: Alert, Awake Assessment and Plan - Assessment and Plan (Free Text) Assessment: 72 yo male with pmhx of htn, diabetes, PVD, hx of DVT, neuropathy seen and evaluated for right leg ulcer; stable Plan: Patient seen and evaluated Seen with the attending, Dr Younger chart, labs and vitals reviewed Arterial studies of b/l LE ordered venous duplex of the left leg ordered right leg dressing with DSD Podiatry will continue to follow the patient multipodus boots ordered
[2018-06-15] MEDS: Digoxin 125 mcg (0.125 mg) Tab PO SCH (18:11)
[2018-06-16 00:59] VITALS: RESP 20
[2018-06-16] MEDS: Albuterol-Ipratrop 3 mg / 0.5 (3 ml) UD INH SCH ×4 (01:25→19:12)
[2018-06-16] MEDS: (Novolin R) Insulin Human Regular 100 units/ml vial SC SCH ×4 (08:58→21:31)
[2018-06-16] MEDS: GlipiZIDE 2.5 mg Tab PO SCH ×2 (08:58→16:14)
[2018-06-16] MEDS: Digoxin 125 mcg (0.125 mg) Tab PO SCH (17:35)
--- NOTE | 2018-06-16 18:50 | CP.PCM.PN ---
Subjective - Date & Time of Evaluation Date of Evaluation: 06/16/18 Time of Evaluation: 18:46 - Subjective Subjective: Podiatry Progress Note for Dr. Younger 72M seen and evaluated at bedside for right leg wound and elongated, painful toenails. Patient is AAO x 3 and NAD, resting comfortably in bed. Denies any pain to his wound but does state that his toenails are causing him pain. Denies any further pedal complaints at this time or acute overnight events. Denies any recent N/V/F/C/CP/SOB/D Objective - Vital Signs/Intake and Output Vital Signs (last 24 hours): Temp Pulse Resp BP Pulse Ox 97.5 F L 95 H 20 91/54 L 96 06/16/18 15:00 06/16/18 15:00 06/16/18 15:00 06/16/18 15:00 06/16/18 15:00 Intake and Output: 06/16/18 06/16/18 06:59 18:59 Output Total 200 Balance -200 - Medications Medications: Current Medications Albuterol/Ipratropium (Duoneb 3 Mg/0.5 Mg (3 Ml) Ud) 3 ml INH RQ6 [facility] Last Admin: 06/16/18 13:22 Dose: Not Given Carbamazepine (Tegretol) 400 mg PO DAILY [facility] Last Admin: 06/16/18 09:04 Dose: 400 mg Carbidopa/Levodopa (Sinemet) 1 tab PO TID [facility] Last Admin: 06/16/18 17:33 Dose: 1 tab Carvedilol (Coreg) 12.5 mg PO BID [facility] Last Admin: 06/16/18 17:34 Dose: Not Given Cyclobenzaprine HCl (Flexeril) 5 mg PO DAILY [facility] Last Admin: 06/16/18 12:16 Dose: 5 mg Digoxin (Digoxin) 0.125 mg PO DAILY@1800 [facility] Last Admin: 06/16/18 17:35 Dose: 0.125 mg Furosemide (Lasix) 20 mg PO DAILY [facility] Last Admin: 06/16/18 09:03 Dose: 20 mg Gabapentin (Neurontin) 600 mg PO TID [facility] Last Admin: 06/16/18 17:37 Dose: 600 mg Glipizide (Glucotrol) 5 mg PO BIDAC [facility] Last Admin: 06/16/18 16:14 Dose: 5 mg Insulin Human Regular (Novolin R) 0 unit SC [facility]; Protocol Last Admin: 06/16/18 17:37 Dose: Not Given Metformin HCl (Glucophage) 500 mg PO BID [facility] Last Admin: 06/16/18 17:36 Dose: 500 mg Rosuvastatin Calcium (Crestor) 5 mg PO HS [facility] Last Admin: 06/15/18 22:15 Dose: 5 mg - Labs Labs: 06/14/18 11:46 06/14/18 11:46 - Constitutional Appears: Well, Non-toxic, No Acute Distress - Extremities Exam Additional comments: B/l LE focused exam: Vasc: DP/PT pulses nonpalpable b/l. CFT < 3 seconds to all digits. Skin temperature warm to warm from proximal to distal WNL b/l. No edema noted b/l Neuro: Epicritic and protective sensation grossly diminished b/l Derm: Dressings left intact to right anterior leg wound. Nails 1-5 noted to be elongated, thickened, and dystrophic in nature MSK: No gross deformities appreciated - Neurological Exam Neurological Exam: Alert, Awake, Oriented x3 - Psychiatric Exam Psychiatric exam: Normal Affect, Normal Mood Assessment and Plan - Assessment and Plan (Free Text) Assessment: 72M seen and evaluated at bedside for right leg wound and elongated, painful toenails Plan: Patient seen and evaluated Plan discussed with Dr. Carisa Mcdowell No plan for surgical intervention at this time Nails 1-5 trimmed to appropriate length b/l without incident Podiatry will continue to follow while patient in house
--- NOTE | 2018-06-16 21:37 | CP.PCM.PN ---
Subjective - Date & Time of Evaluation Date of Evaluation: 06/16/18 Time of Evaluation: 21:36 - Subjective Subjective: Patient having frequent episodes of very aggressive pain over the left upper extremity. Spasm also noted. Patient was not able to sleep last night. Difficult time in getting up. On examination: Vital signs are noted. Recurrent tachycardia, hypertension noted. Because of the ongoing pain, patient is very uncomfortable Blood sugar is also noted to be elevated. We will continue to monitor. I just the blood glucose monitoring, and also insulin level. Added tramadol. And will follow the patient Objective - Vital Signs/Intake and Output Vital Signs (last 24 hours): Temp Pulse Resp BP Pulse Ox 97.5 F L 122 H 20 91/54 L 96 06/16/18 15:00 06/16/18 19:00 06/16/18 15:00 06/16/18 15:00 06/16/18 15:00 - Medications Medications: Current Medications Albuterol/Ipratropium (Duoneb 3 Mg/0.5 Mg (3 Ml) Ud) 3 ml INH RQ6 [facility] Last Admin: 06/16/18 19:12 Dose: Not Given Carbamazepine (Tegretol) 400 mg PO DAILY [facility] Last Admin: 06/16/18 09:04 Dose: 400 mg Carbidopa/Levodopa (Sinemet) 1 tab PO TID [facility] Last Admin: 06/16/18 17:33 Dose: 1 tab Carvedilol (Coreg) 12.5 mg PO BID [facility] Last Admin: 06/16/18 17:34 Dose: Not Given Cyclobenzaprine HCl (Flexeril) 5 mg PO DAILY [facility] Last Admin: 06/16/18 12:16 Dose: 5 mg Digoxin (Digoxin) 0.125 mg PO DAILY@1800 [facility] Last Admin: 06/16/18 17:35 Dose: 0.125 mg Furosemide (Lasix) 20 mg PO DAILY [facility] Last Admin: 06/16/18 09:03 Dose: 20 mg Gabapentin (Neurontin) 600 mg PO TID [facility] Last Admin: 06/16/18 17:37 Dose: 600 mg [facility]) [facility] Last Admin: 06/16/18 16:14 Dose: 5 mg Insulin Human Regular (Novolin R) 0 unit SC [facility]; Protocol Last Admin: 06/16/18 21:31 Dose: Not Given Metformin HCl (Glucophage) 500 mg PO BID [facility] Last Admin: 06/16/18 17:36 Dose: 500 mg Rosuvastatin Calcium (Crestor) 5 mg PO [facility] Last Admin: 06/15/18 22:15 Dose: 5 mg - Labs Labs: 06/14/18 11:46 06/14/18 11:46
[2018-06-17] MEDS: Albuterol-Ipratrop 3 mg / 0.5 (3 ml) UD INH SCH ×4 (02:01→19:23)
[2018-06-17] MEDS: (Novolin R) Insulin Human Regular 100 units/ml vial SC SCH ×4 (09:49→21:19)
[2018-06-17] MEDS: GlipiZIDE 2.5 mg Tab PO SCH ×2 (09:50→17:07)
[2018-06-17] MEDS: Tramadol 25 mg PO SCH ×3 (09:57→17:08)
--- NOTE | 2018-06-17 11:12 | VASCLAB ---
Date of service: 06/16/2018 PROCEDURE: Left Lower Extremity Venous Duplex Exam. HISTORY: Calf pain PRIORS: None. TECHNIQUE: Left common femoral, femoral, popliteal and posterior tibial, peroneal and great saphenous veins were evaluated. Flow was assessed with color Doppler, compressibility, assessment of phasic flow and augmentation response. Report prepared by MARYAN Cabral FINDINGS: LEFT: 1. Common Femoral Vein: 1.1. Compressibility - Fully compressible: Thrombus - None : Flow - Phasic: Augmentation -Normal: Reflux - None. 2. Femoral Vein: 2.1. Compressibility - Partial: Thrombus - Chronic: Flow - Absent 3. Popliteal Vein: 3.1. Compressibility - Partial: Thrombus - Chronic: Reflux - Mild 1.49s 4. Posterior Tibial Vein: 4.1. Compressibility - Incompressible: Thrombus - Chronic: Flow - Absent 5. Peroneal Vein: 5.1. Compressibility - Fully compressible: Thrombus - None: Flow - Phasic: Augmentation -Normal: Reflux - None. 6. Great Saphenous Vein: 6.1. Compressibility - Fully compressible: Thrombus - None: Flow - Phasic: Augmentation - Normal: Reflux - None. OTHER FINDINGS: Normal venous flow noted in the right common femoral vein. IMPRESSION: Chronic deep vein thrombosis of the left femoral, popliteal and posterior tibial veins.
--- NOTE | 2018-06-17 11:13 | VASCLAB ---
Date of service: 06/16/2018 STUDY DESCRIPTION: Lower Extremity Arterial Exam (PVR). HISTORY: no pulse on left, cold to touch PRIORS: None. TECHNIQUE: Pulse volume recording waveforms and segmental pressures of bilateral lower extremities at multiple levels were obtained. Ankle Brachial Indices (ABIs) were calculated. Report prepared by MIRIAM Goode, RVT RIGHT LOWER EXTREMITY: * Brachial artery: Pressure - 100 mmHg. * High thigh: Pressure - mmHg: Ratio - : PVR waveform - Pulsatile * Low thigh: Pressure - mmHg: Ratio - PVR waveform: Pulsatile * Calf: Pressure - mmHg: Ratio - PVR waveform: Pulsatile * Posterior tibial Artery: Pressure - mmHg: Ratio - PVR waveform: Pulsatile * Dorsalis pedis Artery: Pressure - 109 mmHg: Ratio - 1.09 PVR waveform: Pulsatile * Great toe: Pressure - mmHg: Ratio - PVR waveform: Ankle brachial index (ISABELLE): 1.09 LEFT LOWER EXTREMITY: * Brachial artery: Pressure - 94 mmHg. * High thigh: Pressure - mmHg: Ratio - : PVR waveform - Pulsatile * Low thigh: Pressure - mmHg: Ratio - PVR waveform: Pulsatile * Calf: Pressure - mmHg: Ratio - PVR waveform: Pulsatile * Posterior tibial Artery: Pressure - 92 mmHg: Ratio - 0.92 PVR waveform: Pulsatile * Dorsalis pedis Artery: Pressure - 99 mmHg: Ratio - 0.99 PVR waveform: Pulsatile * Great toe: Pressure - mmHg: Ratio - PVR waveform: Ankle brachial index (ISABELLE): 0.99 OTHER FINDINGS: Right: Left: IMPRESSION: Right: There was no evidence of hemodynamically significant arterial insufficiency in the right lower extremity. Left: There was no evidence of hemodynamically significant arterial insufficiency in the left lower extremity.
[2018-06-17 12:03] LABS: BASO % 0.8 % (0.0-2.0); EOS # 0.1 K/uL (0.0-0.7); EOS % 2.2 % (0.0-4.0); HEMOGLOBIN 12.5 g/dL (12.0-18.0); LYMPH # 2.2 K/uL (1.0-4.3); LYMPH % 39.2 % (20.0-40.0); MEAN CELL VOLUME 95.8 fL (80.0-94.0); MEAN CORPUSCULAR HEMOGLOBIN 32.2 pg (27.0-31.0); MEAN CORPUSCULAR HGB CONC 33.7 g/dL (33.0-37.0); MEAN PLATELET VOLUME 9.1 fL (7.2-11.7); MONO # 0.4 K/uL (0.0-0.8); MONO % 6.4 % (0.0-10.0); NEUT # 2.9 K/uL (1.8-7.0); NEUT % 51.4 % (50.0-75.0); NRBC % 0.1 % (0.0-2.0); RBC 3.87 Mil/uL (4.40-5.90); RED CELL DISTRIBUTION WIDTH 13.5 % (11.5-14.5); WHITE BLOOD COUNT 5.6 K/uL (4.8-10.8)
[2018-06-17 12:20] LABS: ALB/GLOB RATIO 1.2 (1.0-2.1); ALBUMIN 3.7 g/dL (3.5-5.0); ALT/SGPT < 6 U/L (21-72); AST/SGOT 21 U/L (17-59); BLOOD UREA NITROGEN 42 mg/dL (9-20); CALCIUM 8.5 mg/dl (8.6-10.4); GFR NON-AFRICAN AMERICAN 46
--- NOTE | 2018-06-17 15:06 | CP.PCM.PN ---
Subjective - Date & Time of Evaluation Date of Evaluation: 06/17/18 Time of Evaluation: 15:01 - Subjective Subjective: Podiatry Progress Note for Dr. Younger 72M seen and evaluated at bedside for anterior right leg wound with Dr. Younger. Patient is AAO x 3 and NAD, resting comfortably in bed. Patient states that pain to his leg wound is controlled at this time. Denies any further pedal complaints at this time or acute overnight events. Denies any recent N/V/F/C/CP/SOB/D Objective - Vital Signs/Intake and Output Vital Signs (last 24 hours): Temp Pulse Resp BP Pulse Ox 97.4 F L 111 H 20 1114/71 H 97 06/17/18 08:41 06/17/18 08:41 06/17/18 08:41 06/17/18 09:56 06/17/18 08:41 Intake and Output: 06/17/18 06/17/18 06:59 18:59 Output Total 200 Balance -200 - Medications Medications: Current Medications Albuterol/Ipratropium (Duoneb 3 Mg/0.5 Mg (3 Ml) Ud) 3 ml INH RQ6 [facility] Last Admin: 06/17/18 13:26 Dose: 3 ml Apixaban (Eliquis) 2.5 mg PO Q12 [facility] Last Admin: 06/17/18 09:51 Dose: 2.5 mg Carbamazepine (Tegretol) 400 mg PO DAILY [facility] Last Admin: 06/17/18 09:54 Dose: 400 mg Carbidopa/Levodopa (Sinemet) 1 tab PO TID [facility] Last Admin: 06/17/18 09:58 Dose: 1 tab Carvedilol (Coreg) 12.5 mg PO BID [facility] Last Admin: 06/17/18 09:56 Dose: 12.5 mg Cyclobenzaprine HCl (Flexeril) 5 mg PO DAILY [facility] Last Admin: 06/17/18 09:52 Dose: 5 mg Digoxin (Digoxin) 0.125 mg PO DAILY@1800 [facility] Last Admin: 06/16/18 17:35 Dose: 0.125 mg Furosemide (Lasix) 20 mg PO DAILY [facility] Last Admin: 06/17/18 09:52 Dose: 20 mg Gabapentin (Neurontin) 600 mg PO TID [facility] Last Admin: 06/17/18 09:51 Dose: 600 mg Glipizide (Glucotrol) 5 mg PO BIDAC [facility] Last Admin: 06/17/18 09:50 Dose: 5 mg Insulin Human Regular (Novolin R) 0 unit SC ACHS [facility]; Protocol Last Admin: 06/17/18 13:38 Dose: 6 unit Metformin HCl (Glucophage) 500 mg PO BID [facility] Last Admin: 06/17/18 09:56 Dose: 500 mg Rosuvastatin Calcium (Crestor) 5 mg PO HS [facility] Last Admin: 06/16/18 21:34 Dose: 5 mg Tramadol HCl (Ultram) 25 mg PO TID [facility] Last Admin: 06/17/18 09:57 Dose: 25 mg - Labs Labs: 06/17/18 11:38 06/17/18 11:38 - Constitutional Appears: Well, Non-toxic, No Acute Distress - Extremities Exam Additional comments: B/l LE focused exam: Vasc: DP/PT pulses nonpalpable b/l. CFT < 3 seconds to all digits. Skin temperature warm to warm from proximal to distal WNL b/l. No edema noted b/l Neuro: Epicritic and protective sensation grossly diminished b/l Derm: 1 cm x 1 cm x 0.1 cm ulceration with 95% granular and 5% fibrotic base noted to anterior aspect of patient's right leg. No erythema, malodor, drainage, tracking, tunneling, undermining or other clinical signs of infection noted at this time. MSK: No gross deformities appreciated - Neurological Exam Neurological Exam: Alert, Awake, Oriented x3 - Psychiatric Exam Psychiatric exam: Normal Affect, Normal Mood Assessment and Plan - Assessment and Plan (Free Text) Assessment: 72M seen and evaluated at bedside for anterior right leg wound with Dr. Younger Plan: Patient seen and evaluated with Dr. Younger Afebrile, absent leukocytosis No plan for further surgical intervention at this time Wound cleansed with saline and dressed with Mepilex Patient to follow up with Dr. Younger following discharge Podiatry will continue to follow while patient in house
[2018-06-17] MEDS: Digoxin 125 mcg (0.125 mg) Tab PO SCH (17:07)
--- NOTE | 2018-06-17 18:47 | CP.PCM.PN ---
Subjective - Date & Time of Evaluation Date of Evaluation: 06/17/18 Time of Evaluation: 18:45 - Subjective Subjective: Patient today feeling much better than yesterday. Less pain noted. The blood pressure and vital signs are stable. Mild tachycardia noted On examination: Vital signs are stable. Mild tachycardia, low blood pressure noted. Chest good air entry regular [place] noted Nontender abdomen. Bilateral pedal edema more on the left side noted. Doppler of the legs are showing evidence of DVT chronic Given the patient is at high risk for recurrent fall, I educated the patient regarding the anticoagulation. We will start the patient Eliquis 2.5 mg twice daily We will continue the current treatment. We will possibly discharge the patient tomorrow if he is clinically stable. Objective - Vital Signs/Intake and Output Vital Signs (last 24 hours): Temp Pulse Resp BP Pulse Ox 97.6 F 106 H 20 90/60 L 97 06/17/18 15:00 06/17/18 16:35 06/17/18 15:00 06/17/18 17:06 06/17/18 15:00 Intake and Output: 06/17/18 06/17/18 06:59 18:59 Output Total 200 Balance -200 - Medications Medications: Current Medications Albuterol/Ipratropium (Duoneb 3 Mg/0.5 Mg (3 Ml) Ud) 3 ml INH RQ6 [facility] Last Admin: 06/17/18 13:26 Dose: 3 ml Apixaban (Eliquis) 2.5 mg PO Q12 [facility] Last Admin: 06/17/18 09:51 Dose: 2.5 mg Carbamazepine (Tegretol) 400 mg PO DAILY [facility] Last Admin: 06/17/18 09:54 Dose: 400 mg Carbidopa/Levodopa (Sinemet) 1 tab PO TID [facility] Last Admin: 06/17/18 17:07 Dose: 1 tab Carvedilol (Coreg) 12.5 mg PO BID [facility] Last Admin: 06/17/18 17:06 Dose: Not Given Cyclobenzaprine HCl (Flexeril) 5 mg PO DAILY [facility] Last Admin: 06/17/18 09:52 Dose: 5 mg Digoxin (Digoxin) 0.125 mg PO DAILY@1800 [facility] Last Admin: 06/17/18 17:07 Dose: 0.125 mg Furosemide (Lasix) 20 mg PO DAILY [facility] Last Admin: 06/17/18 09:52 Dose: 20 mg Gabapentin (Neurontin) 600 mg PO TID [facility] Last Admin: 06/17/18 17:07 Dose: 600 mg Glipizide (Glucotrol) 5 mg PO BIDAC [facility] Last Admin: 06/17/18 17:07 Dose: 5 mg Insulin Human Regular (Novolin R) 0 unit SC ACHS [facility]; Protocol Last Admin: 06/17/18 17:09 Dose: 6 unit Metformin HCl (Glucophage) 500 mg PO BID [facility] Last Admin: 06/17/18 17:08 Dose: 500 mg Rosuvastatin Calcium (Crestor) 5 mg PO HS [facility] Last Admin: 06/16/18 21:34 Dose: 5 mg Tramadol HCl (Ultram) 25 mg PO TID [facility] Last Admin: 06/17/18 17:08 Dose: 25 mg - Labs Labs: 06/17/18 11:38 06/17/18 11:38
[2018-06-18] MEDS: Albuterol-Ipratrop 3 mg / 0.5 (3 ml) UD INH SCH ×4 (03:06→22:52)
[2018-06-18] MEDS: (Novolin R) Insulin Human Regular 100 units/ml vial SC SCH ×4 (08:14→21:08)
[2018-06-18] MEDS: GlipiZIDE 2.5 mg Tab PO SCH ×2 (08:14→17:09)
[2018-06-18] MEDS: Tramadol 25 mg PO SCH ×3 (09:04→17:07)
[2018-06-18] MEDS: Digoxin 125 mcg (0.125 mg) Tab PO SCH (17:08)
[2018-06-19] MEDS: Albuterol-Ipratrop 3 mg / 0.5 (3 ml) UD INH SCH ×4 (01:05→20:11)
[2018-06-19] MEDS: (Novolin R) Insulin Human Regular 100 units/ml vial SC SCH ×4 (09:06→21:43)
[2018-06-19] MEDS: GlipiZIDE 2.5 mg Tab PO SCH ×2 (09:07→21:44)
[2018-06-19] MEDS: Tramadol 25 mg PO SCH ×3 (09:10→21:45)
--- NOTE | 2018-06-19 14:02 | CP.PCM.PN ---
Subjective - Date & Time of Evaluation Date of Evaluation: 06/19/18 Time of Evaluation: 13:58 - Subjective Subjective: Podiatry Progress Note for Dr. Younger 72M seen and evaluated at bedside for anterior right leg wound. Patient is AAO x 3 and NAD, resting comfortably in bed. Patient states that pain to his leg wound is controlled at this time. Denies any further pedal complaints at this time. Denies any acute overnight events. Denies any recent N/V/F/C/CP/SOB/D Objective - Vital Signs/Intake and Output Vital Signs (last 24 hours): Temp Pulse Resp BP Pulse Ox 97.2 F L 105 H 20 126/84 99 06/19/18 07:22 06/19/18 09:08 06/19/18 07:22 06/19/18 09:08 06/19/18 07:22 Intake and Output: 06/19/18 06/19/18 06:59 18:59 Intake Total 118 Output Total 500 Balance -382 - Medications Medications: Current Medications Albuterol/Ipratropium (Duoneb 3 Mg/0.5 Mg (3 Ml) Ud) 3 ml INH RQ6 [facility] Last Admin: 06/19/18 13:29 Dose: Not Given Apixaban (Eliquis) 2.5 mg PO Q12 [facility] Last Admin: 06/19/18 09:09 Dose: 2.5 mg Carbamazepine (Tegretol) 400 mg PO DAILY [facility] Last Admin: 06/19/18 09:08 Dose: 400 mg Carbidopa/Levodopa (Sinemet) 1 tab PO TID [facility] Last Admin: 06/19/18 13:42 Dose: 1 tab Cyclobenzaprine HCl (Flexeril) 5 mg PO DAILY [facility] Last Admin: 06/19/18 09:09 Dose: 5 mg Digoxin (Digoxin) 0.125 mg PO DAILY@1800 [facility] Last Admin: 06/18/18 17:08 Dose: 0.125 mg Diltiazem HCl (Cardizem) 60 mg PO QID [facility] Last Admin: 06/19/18 13:42 Dose: 60 mg Gabapentin (Neurontin) 600 mg PO TID [facility] Last Admin: 06/19/18 13:42 Dose: 600 mg Glipizide (Glucotrol) 5 mg PO BIDAC [facility] Last Admin: 06/19/18 09:07 Dose: 5 mg Insulin Human Regular (Novolin R) 0 unit SC ACHS [facility]; Protocol Last Admin: 06/19/18 12:22 Dose: 8 unit Metformin HCl (Glucophage) 500 mg PO BID [facility] Last Admin: 06/19/18 09:08 Dose: 500 mg Rosuvastatin Calcium (Crestor) 5 mg PO HS [facility] Last Admin: 06/18/18 21:20 Dose: 5 mg Tramadol HCl (Ultram) 25 mg PO TID [facility] Last Admin: 06/19/18 13:43 Dose: Not Given - Labs Labs: 06/17/18 11:38 06/17/18 11:38 - Constitutional Appears: Well, Non-toxic, No Acute Distress - Extremities Exam Additional comments: B/l LE focused exam: Vasc: DP/PT pulses non-palpable b/l. CFT < 3 seconds to all digits. Skin temperature warm to warm from proximal to distal WNL b/l. No edema noted b/l Neuro: Epicritic and protective sensation grossly diminished b/l Derm: 0.8 cm x 0.7 cm x 0.1 cm ulceration with 100% granular base noted to anterior aspect of patient's right leg. No erythema, malodor, drainage, tracking, tunneling, undermining or other clinical signs of infection noted at this time. MSK: No gross deformities appreciated - Neurological Exam Neurological Exam: Alert, Awake, Oriented x3 - Psychiatric Exam Psychiatric exam: Normal Affect, Normal Mood Assessment and Plan - Assessment and Plan (Free Text) Assessment: 72M seen and evaluated at bedside for anterior right leg wound Plan: Patient seen and evaluated Plan discussed with Dr. Younger Afebrile, absent leukocytosis No plan for further surgical intervention at this time Wound cleansed with saline and dressed with Mepilex Patient to follow up with Dr. Younger following discharge Podiatry will continue to follow while patient in house
[2018-06-19] MEDS: Digoxin 125 mcg (0.125 mg) Tab PO SCH (17:16)
[2018-06-20] MEDS: Albuterol-Ipratrop 3 mg / 0.5 (3 ml) UD INH SCH ×4 (01:14→20:16)
[2018-06-20] MEDS: GlipiZIDE 2.5 mg Tab PO SCH ×2 (08:53→17:10)
[2018-06-20] MEDS: (Novolin R) Insulin Human Regular 100 units/ml vial SC SCH ×4 (08:53→21:49)
[2018-06-20] MEDS: Tramadol 25 mg PO SCH ×3 (09:06→21:50)
[2018-06-20] MEDS: Digoxin 125 mcg (0.125 mg) Tab PO SCH (18:13)
[2018-06-21] MEDS: Albuterol-Ipratrop 3 mg / 0.5 (3 ml) UD INH SCH ×4 (02:33→20:11)
[2018-06-21] MEDS: (Novolin R) Insulin Human Regular 100 units/ml vial SC SCH ×4 (09:01→22:00)
[2018-06-21] MEDS: GlipiZIDE 2.5 mg Tab PO SCH ×2 (09:02→17:25)
[2018-06-21] MEDS: Tramadol 25 mg PO SCH ×3 (09:03→17:26)
[2018-06-21] MEDS: Digoxin 125 mcg (0.125 mg) Tab PO SCH (17:25)
[2018-06-22] MEDS: Albuterol-Ipratrop 3 mg / 0.5 (3 ml) UD INH SCH ×3 (07:50→20:19)
[2018-06-22] MEDS: GlipiZIDE 2.5 mg Tab PO SCH ×2 (08:33→17:07)
[2018-06-22] MEDS: (Novolin R) Insulin Human Regular 100 units/ml vial SC SCH ×4 (08:34→21:45)
[2018-06-22] MEDS: Tramadol 25 mg PO SCH ×3 (11:05→17:08)
--- NOTE | 2018-06-22 11:39 | CP.PCM.PN ---
Subjective - Date & Time of Evaluation Date of Evaluation: 06/22/18 Time of Evaluation: 11:36 - Subjective Subjective: Podiatry Progress Note for Dr. Younger 72M seen and evaluated at bedside for anterior right leg wound. Patient is AAO x 3 and NAD, resting comfortably in bed. Patient states that pain to his leg wound is controlled at this time. He also states that he is beginning to have pain in his posterior right heel. Denies any acute overnight events. Denies any recent N/V/F/C/CP/SOB/D Objective - Vital Signs/Intake and Output Vital Signs (last 24 hours): Temp Pulse Resp BP Pulse Ox 97.7 F 69 20 108/71 99 06/22/18 07:00 06/22/18 07:00 06/22/18 07:00 06/22/18 07:00 06/22/18 07:00 Intake and Output: 06/22/18 06/22/18 06:59 18:59 Intake Total 200 Output Total 500 Balance -300 - Medications Medications: Current Medications Albuterol/Ipratropium (Duoneb 3 Mg/0.5 Mg (3 Ml) Ud) 3 ml INH RQ6 [facility] Last Admin: 06/22/18 07:50 Dose: 3 ml Apixaban (Eliquis) 2.5 mg PO Q12 [facility] Last Admin: 06/22/18 11:06 Dose: 2.5 mg Carbamazepine (Tegretol) 400 mg PO DAILY [facility] Last Admin: 06/22/18 11:04 Dose: 400 mg Carbidopa/Levodopa (Sinemet) 1 tab PO TID [facility] Last Admin: 06/22/18 11:05 Dose: 1 tab Cyclobenzaprine HCl (Flexeril) 5 mg PO DAILY [facility] Last Admin: 06/22/18 11:07 Dose: 5 mg Digoxin (Digoxin) 0.125 mg PO DAILY@1800 [facility] Last Admin: 06/21/18 17:25 Dose: 0.125 mg Diltiazem HCl (Cardizem) 60 mg PO QID [facility] Last Admin: 06/22/18 11:06 Dose: 60 mg Gabapentin (Neurontin) 600 mg PO TID [facility] Last Admin: 06/22/18 11:04 Dose: 600 mg Glipizide (Glucotrol) 5 mg PO BIDAC [facility] Last Admin: 04/07/19 08:33 Dose: 5 mg Insulin Human Regular (Novolin R) 0 unit SC ACHS [facility]; Protocol Last Admin: 06/22/18 08:34 Dose: 2 unit Metformin HCl (Glucophage) 500 mg PO BID [facility] Last Admin: 06/22/18 11:04 Dose: 500 mg Rosuvastatin Calcium (Crestor) 5 mg PO HS [facility] Last Admin: 06/21/18 22:06 Dose: 5 mg Tramadol HCl (Ultram) 25 mg PO TID [facility] Last Admin: 06/22/18 11:05 Dose: 25 mg - Labs Labs: 06/17/18 11:38 06/17/18 11:38 - Constitutional Appears: Well, Non-toxic, No Acute Distress - Extremities Exam Additional comments: B/l LE focused exam: Vasc: DP/PT pulses non-palpable b/l. CFT < 3 seconds to all digits. Skin temperature warm to warm from proximal to distal WNL b/l. No edema noted b/l Neuro: Epicritic and protective sensation grossly diminished b/l Derm: 0.8 cm x 0.7 cm x 0.1 cm ulceration with 100% granular base noted to anterior aspect of patient's right leg. No erythema, malodor, drainage, tracking, tunneling, undermining or other clinical signs of infection noted at this time. Early signs of deep tissue injury noted to posterior right heel MSK: No gross deformities appreciated. Pain on palpation of posterior right heel - Neurological Exam Neurological Exam: Alert, Awake, Oriented x3 - Psychiatric Exam Psychiatric exam: Normal Affect, Normal Mood Assessment and Plan - Assessment and Plan (Free Text) Assessment: 72M seen and evaluated at bedside for anterior right leg wound and deep tissue injury of right heel Plan: Patient seen and evaluated Plan discussed with Dr. Younger Afebrile, absent leukocytosis No plan for further surgical intervention at this time Wound cleansed with saline and dressed with Mepilex Nursing to provide patient with pillows to place under his legs to offload his heels Multipodus boots ordered to be worm at all times while in bed Patient to follow up with Dr. Younger following discharge Podiatry will continue to follow while patient in house
[2018-06-22] MEDS: Digoxin 125 mcg (0.125 mg) Tab PO SCH (17:08)
--- NOTE | 2018-06-22 18:50 | CP.PCM.PN ---
Subjective - Date & Time of Evaluation Date of Evaluation: 06/18/18 Time of Evaluation: 09:00 - Subjective Subjective: Patient is also having shaking and tremor in the upper extremities noted. Episodes of high blood pressure also noted. Rapid response few times were called. We will continue the current treatment. Physical therapy recommended and will follow the patient Objective - Vital Signs/Intake and Output Vital Signs (last 24 hours): Temp Pulse Resp BP Pulse Ox 97.5 F L 89 20 103/66 99 06/22/18 16:11 06/22/18 16:11 06/22/18 16:11 06/22/18 16:11 06/22/18 16:11 Intake and Output: 06/22/18 06/22/18 06:59 18:59 Intake Total 200 480 Output Total 500 500 Balance -300 -20 - Medications Medications: Current Medications Albuterol/Ipratropium (Duoneb 3 Mg/0.5 Mg (3 Ml) Ud) 3 ml INH RQ6 [facility] Last Admin: 06/22/18 13:45 Dose: 3 ml Apixaban (Eliquis) 2.5 mg PO Q12 [facility] Last Admin: 06/22/18 11:06 Dose: 2.5 mg Carbamazepine (Tegretol) 400 mg PO DAILY [facility] Last Admin: 06/22/18 11:04 Dose: 400 mg Carbidopa/Levodopa (Sinemet) 1 tab PO TID [facility] Last Admin: 06/22/18 17:07 Dose: 1 tab Cyclobenzaprine HCl (Flexeril) 5 mg PO DAILY [facility] Last Admin: 06/22/18 11:07 Dose: 5 mg Digoxin (Digoxin) 0.125 mg PO DAILY@1800 [facility] Last Admin: 06/22/18 17:08 Dose: 0.125 mg Diltiazem HCl (Cardizem) 60 mg PO QID [facility] Last Admin: 06/22/18 17:08 Dose: 60 mg Gabapentin (Neurontin) 600 mg PO TID [facility] Last Admin: 06/22/18 17:07 Dose: 600 mg Glipizide (Glucotrol) 5 mg PO BIDAC [facility] Last Admin: 06/22/18 17:07 Dose: 5 mg Insulin Human Regular (Novolin R) 0 unit SC ACHS [facility]; Protocol Last Admin: 06/22/18 17:06 Dose: 4 unit Metformin HCl (Glucophage) 500 mg PO BID [facility] Last Admin: 06/22/18 17:08 Dose: 500 mg Rosuvastatin Calcium (Crestor) 5 mg PO HS [facility] Last Admin: 06/21/18 22:06 Dose: 5 mg Tramadol HCl (Ultram) 25 mg PO TID [facility] Last Admin: 06/22/18 17:08 Dose: 25 mg - Labs Labs: 06/17/18 11:38 06/17/18 11:38
--- NOTE | 2018-06-22 18:51 | CP.PCM.PN ---
Subjective - Date & Time of Evaluation Date of Evaluation: 06/22/18 Time of Evaluation: 18:51 - Subjective Subjective: Patient has a generalized weakness. He is feeling sleepy. Poor intake. I recommended for rehab at this time. We will plan for rehab tomorrow. And will follow the patient Reduce the pain medication Objective - Vital Signs/Intake and Output Vital Signs (last 24 hours): Temp Pulse Resp BP Pulse Ox 97.5 F L 89 20 103/66 99 06/22/18 16:11 06/22/18 16:11 06/22/18 16:11 06/22/18 16:11 06/22/18 16:11 Intake and Output: 06/22/18 06/22/18 06:59 18:59 Intake Total 200 480 Output Total 500 500 Balance -300 -20 - Medications Medications: Current Medications Albuterol/Ipratropium (Duoneb 3 Mg/0.5 Mg (3 Ml) Ud) 3 ml INH RQ6 [facility] Last Admin: 06/22/18 13:45 Dose: 3 ml Apixaban (Eliquis) 2.5 mg PO Q12 [facility] Last Admin: 06/22/18 11:06 Dose: 2.5 mg Carbamazepine (Tegretol) 400 mg PO DAILY [facility] Last Admin: 06/22/18 11:04 Dose: 400 mg Carbidopa/Levodopa (Sinemet) 1 tab PO TID [facility] Last Admin: 06/22/18 17:07 Dose: 1 tab Cyclobenzaprine HCl (Flexeril) 5 mg PO DAILY [facility] Last Admin: 06/22/18 11:07 Dose: 5 mg Digoxin (Digoxin) 0.125 mg PO DAILY@1800 [facility] Last Admin: 06/22/18 17:08 Dose: 0.125 mg Diltiazem HCl (Cardizem) 60 mg PO QID [facility] Last Admin: 06/22/18 17:08 Dose: 60 mg Gabapentin (Neurontin) 600 mg PO TID [facility] Last Admin: 06/22/18 17:07 Dose: 600 mg Glipizide (Glucotrol) 5 mg PO BIDAC [facility] Last Admin: 06/22/18 17:07 Dose: 5 mg Insulin Human Regular (Novolin R) 0 unit SC ACHS [facility]; Protocol Last Admin: 06/22/18 17:06 Dose: 4 unit Metformin HCl (Glucophage) 500 mg PO BID [facility] Last Admin: 06/22/18 17:08 Dose: 500 mg Rosuvastatin Calcium (Crestor) 5 mg PO HS [facility] Last Admin: 06/21/18 22:06 Dose: 5 mg Tramadol HCl (Ultram) 25 mg PO TID [facility] Last Admin: 06/22/18 17:08 Dose: 25 mg - Labs Labs: 06/17/18 11:38 06/17/18 11:38
--- NOTE | 2018-06-22 18:51 | CP.PCM.PN ---
Subjective - Date & Time of Evaluation Date of Evaluation: 06/19/18 Time of Evaluation: 18:00 - Subjective Subjective: Still complaining of pain over the left upper extremity, also pain in the left arm. Numbness and tingling present. He has no chest pain or shortness of breath. Tachycardia noted. Episodes of high blood pressure noted Patient is a 72 male with a history of multiple medical problems diabetes hypertension patient also has a cervical myelomalacia because of the cervical disc disease. Contributing the weakness and numbness and spasm. Patient is having difficult time in standing up and walking. I spoke to the patient about the rehab. Patient does not want to go Objective - Vital Signs/Intake and Output Vital Signs (last 24 hours): Temp Pulse Resp BP Pulse Ox 97.5 F L 89 20 103/66 99 06/22/18 16:11 06/22/18 16:11 06/22/18 16:11 06/22/18 16:11 06/22/18 16:11 Intake and Output: 06/22/18 06/22/18 06:59 18:59 Intake Total 200 480 Output Total 500 500 Balance -300 -20 - Medications Medications: Current Medications Albuterol/Ipratropium (Duoneb 3 Mg/0.5 Mg (3 Ml) Ud) 3 ml INH RQ6 [facility] Last Admin: 06/22/18 13:45 Dose: 3 ml Apixaban (Eliquis) 2.5 mg PO Q12 [facility] Last Admin: 06/22/18 11:06 Dose: 2.5 mg Carbamazepine (Tegretol) 400 mg PO DAILY [facility] Last Admin: 06/22/18 11:04 Dose: 400 mg Carbidopa/Levodopa (Sinemet) 1 tab PO TID [facility] Last Admin: 06/22/18 17:07 Dose: 1 tab Cyclobenzaprine HCl (Flexeril) 5 mg PO DAILY [facility] Last Admin: 06/22/18 11:07 Dose: 5 mg Digoxin (Digoxin) 0.125 mg PO DAILY@1800 [facility] Last Admin: 06/22/18 17:08 Dose: 0.125 mg Diltiazem HCl (Cardizem) 60 mg PO QID [facility] Last Admin: 06/22/18 17:08 Dose: 60 mg Gabapentin (Neurontin) 600 mg PO TID [facility] Last Admin: 06/22/18 17:07 Dose: 600 mg Glipizide (Glucotrol) 5 mg PO BIDAC [facility] Last Admin: 06/22/18 17:07 Dose: 5 mg Insulin Human Regular (Novolin R) 0 unit SC ACHS [facility]; Protocol Last Admin: 06/22/18 17:06 Dose: 4 unit Metformin HCl (Glucophage) 500 mg PO BID [facility] Last Admin: 06/22/18 17:08 Dose: 500 mg Rosuvastatin Calcium (Crestor) 5 mg PO HS [facility] Last Admin: 06/21/18 22:06 Dose: 5 mg Tramadol HCl (Ultram) 25 mg PO TID [facility] Last Admin: 06/22/18 17:08 Dose: 25 mg - Labs Labs: 06/17/18 11:38 06/17/18 11:38
--- NOTE | 2018-06-22 18:51 | CP.PCM.PN ---
Subjective - Date & Time of Evaluation Date of Evaluation: 06/20/18 Time of Evaluation: 18:51 - Subjective Subjective: Patient is todayStill feeling slightly weak tired and is sleeping. No chest pain or shortness of breath. We will continue the current treatment. Rehab evaluation recommended and will follow the patient Objective - Vital Signs/Intake and Output Vital Signs (last 24 hours): Temp Pulse Resp BP Pulse Ox 97.5 F L 89 20 103/66 99 06/22/18 16:11 06/22/18 16:11 06/22/18 16:11 06/22/18 16:11 06/22/18 16:11 Intake and Output: 06/22/18 06/22/18 06:59 18:59 Intake Total 200 480 Output Total 500 500 Balance -300 -20 - Medications Medications: Current Medications Albuterol/Ipratropium (Duoneb 3 Mg/0.5 Mg (3 Ml) Ud) 3 ml INH RQ6 [facility] Last Admin: 06/22/18 13:45 Dose: 3 ml Apixaban (Eliquis) 2.5 mg PO Q12 [facility] Last Admin: 06/22/18 11:06 Dose: 2.5 mg Carbamazepine (Tegretol) 400 mg PO DAILY [facility] Last Admin: 06/22/18 11:04 Dose: 400 mg Carbidopa/Levodopa (Sinemet) 1 tab PO TID [facility] Last Admin: 06/22/18 17:07 Dose: 1 tab Cyclobenzaprine HCl (Flexeril) 5 mg PO DAILY [facility] Last Admin: 06/22/18 11:07 Dose: 5 mg Digoxin (Digoxin) 0.125 mg PO DAILY@1800 [facility] Last Admin: 06/22/18 17:08 Dose: 0.125 mg Diltiazem HCl (Cardizem) 60 mg PO QID [facility] Last Admin: 06/22/18 17:08 Dose: 60 mg Gabapentin (Neurontin) 600 mg PO TID [facility] Last Admin: 06/22/18 17:07 Dose: 600 mg Glipizide (Glucotrol) 5 mg PO BIDAC [facility] Last Admin: 06/22/18 17:07 Dose: 5 mg Insulin Human Regular (Novolin R) 0 unit SC ACHS [facility]; Protocol Last Admin: 06/22/18 17:06 Dose: 4 unit Metformin HCl (Glucophage) 500 mg PO BID [facility] Last Admin: 06/22/18 17:08 Dose: 500 mg Rosuvastatin Calcium (Crestor) 5 mg PO HS [facility] Last Admin: 06/21/18 22:06 Dose: 5 mg Tramadol HCl (Ultram) 25 mg PO TID [facility] Last Admin: 06/22/18 17:08 Dose: 25 mg - Labs Labs: 06/17/18 11:38 06/17/18 11:38
--- NOTE | 2018-06-22 18:51 | CP.PCM.PN ---
Subjective - Date & Time of Evaluation Date of Evaluation: 06/21/18 Time of Evaluation: 18:54 - Subjective Subjective: Patient today felt okay. I told him that he can be discharged home this evening. When the nurses are attempting to stand up and walk the patient was falling backward. Difficult time in getting up and walking. Recommended subacute rehab Objective - Vital Signs/Intake and Output Vital Signs (last 24 hours): Temp Pulse Resp BP Pulse Ox 97.5 F L 89 20 103/66 99 06/22/18 16:11 06/22/18 16:11 06/22/18 16:11 06/22/18 16:11 06/22/18 16:11 Intake and Output: 06/22/18 06/22/18 06:59 18:59 Intake Total 200 480 Output Total 500 500 Balance -300 -20 - Medications Medications: Current Medications Albuterol/Ipratropium (Duoneb 3 Mg/0.5 Mg (3 Ml) Ud) 3 ml INH RQ6 [facility] Last Admin: 06/22/18 13:45 Dose: 3 ml Apixaban (Eliquis) 2.5 mg PO Q12 [facility] Last Admin: 06/22/18 11:06 Dose: 2.5 mg Carbamazepine (Tegretol) 400 mg PO DAILY [facility] Last Admin: 06/22/18 11:04 Dose: 400 mg Carbidopa/Levodopa (Sinemet) 1 tab PO TID [facility] Last Admin: 06/22/18 17:07 Dose: 1 tab Cyclobenzaprine HCl (Flexeril) 5 mg PO DAILY [facility] Last Admin: 06/22/18 11:07 Dose: 5 mg Digoxin (Digoxin) 0.125 mg PO DAILY@1800 [facility] Last Admin: 06/22/18 17:08 Dose: 0.125 mg Diltiazem HCl (Cardizem) 60 mg PO QID [facility] Last Admin: 06/22/18 17:08 Dose: 60 mg Gabapentin (Neurontin) 600 mg PO TID [facility] Last Admin: 06/22/18 17:07 Dose: 600 mg Glipizide (Glucotrol) 5 mg PO BIDAC [facility] Last Admin: 06/22/18 17:07 Dose: 5 mg Insulin Human Regular (Novolin R) 0 unit [facility]; Protocol Last Admin: 06/22/18 17:06 Dose: 4 unit Metformin HCl (Glucophage) 500 mg PO BID [facility] Last Admin: 06/22/18 17:08 Dose: 500 mg Rosuvastatin Calcium (Crestor) 5 mg PO HS [facility] Last Admin: 06/21/18 22:06 Dose: 5 mg Tramadol HCl (Ultram) 25 mg PO TID [facility] Last Admin: 06/22/18 17:08 Dose: 25 mg - Labs Labs: 06/17/18 11:38 06/17/18 11:38
[2018-06-23] MEDS: Albuterol-Ipratrop 3 mg / 0.5 (3 ml) UD INH SCH ×3 (07:41→20:38)
[2018-06-23] MEDS: (Novolin R) Insulin Human Regular 100 units/ml vial SC SCH ×4 (08:36→21:22)
[2018-06-23] MEDS: GlipiZIDE 2.5 mg Tab PO SCH (08:37)
[2018-06-23] MEDS: Tramadol 25 mg PO SCH (09:26)
[2018-06-23 11:28] LABS: BASO % 0.7 % (0.0-2.0); EOS # 0.1 K/uL (0.0-0.7); HEMOGLOBIN 12.7 g/dL (12.0-18.0); LYMPH # 1.2 K/uL (1.0-4.3); LYMPH % 23.5 % (20.0-40.0); MEAN CELL VOLUME 96.3 fL (80.0-94.0); MEAN CORPUSCULAR HEMOGLOBIN 32.6 pg (27.0-31.0); MEAN CORPUSCULAR HGB CONC 33.9 g/dL (33.0-37.0); MEAN PLATELET VOLUME 9.3 fL (7.2-11.7); MONO # 0.3 K/uL (0.0-0.8); MONO % 5.5 % (0.0-10.0); NEUT # 3.4 K/uL (1.8-7.0); NEUT % 68.3 % (50.0-75.0); NRBC % 0.1 % (0.0-2.0); RBC 3.9 Mil/uL (4.40-5.90); RED CELL DISTRIBUTION WIDTH 13.6 % (11.5-14.5)
[2018-06-23 11:42] LABS: ALB/GLOB RATIO 1.3 (1.0-2.1); ALBUMIN 3.9 g/dL (3.5-5.0); ALT/SGPT < 6 U/L (21-72); AST/SGOT 18 U/L (17-59); BLOOD UREA NITROGEN 26 mg/dL (9-20); CALCIUM 8.7 mg/dl (8.6-10.4); GFR NON-AFRICAN AMERICAN 54
[2018-06-23] MEDS: Digoxin 125 mcg (0.125 mg) Tab PO SCH (17:08)
[2018-06-24] MEDS: Albuterol-Ipratrop 3 mg / 0.5 (3 ml) UD INH SCH ×3 (01:23→13:27)
[2018-06-24 08:06] VITALS: O2SAT 98
[2018-06-24] MEDS: (Novolin R) Insulin Human Regular 100 units/ml vial SC SCH ×3 (08:41→17:05)
--- NOTE | 2018-06-24 14:18 | CP.PCM.PN ---
Subjective - Date & Time of Evaluation Date of Evaluation: 06/24/18 Time of Evaluation: 14:14 - Subjective Subjective: Podiatry Progress Note for Dr. Younger 72M seen and evaluated at bedside for anterior right leg wound and early right heel deep tissue injury. Patient is AAO x 3 and NAD, resting comfortably in bed. Patient states that pain to his leg wound and his right heel are controlled and minimal at this time. Denies any acute overnight events. Denies any recent N/V/F/C/CP/SOB/D Objective - Vital Signs/Intake and Output Vital Signs (last 24 hours): Temp Pulse Resp BP Pulse Ox 98.0 F 107 H 20 148/95 H 98 06/24/18 08:05 06/24/18 08:05 06/24/18 08:05 06/24/18 08:05 06/24/18 08:05 Intake and Output: 06/24/18 06/24/18 06:59 18:59 Intake Total 300 Balance 300 - Medications Medications: Current Medications Albuterol/Ipratropium (Duoneb 3 Mg/0.5 Mg (3 Ml) Ud) 3 ml INH RQ6 [facility] Last Admin: 06/24/18 13:27 Dose: Not Given Apixaban (Eliquis) 2.5 mg PO Q12 [facility] Last Admin: 06/24/18 09:10 Dose: 2.5 mg Carbamazepine (Tegretol) 400 mg PO DAILY [facility] Last Admin: 06/24/18 09:10 Dose: 400 mg Carbidopa/Levodopa (Sinemet) 1 tab PO TID [facility] Last Admin: 06/24/18 09:10 Dose: 1 tab Cyclobenzaprine HCl (Flexeril) 5 mg PO DAILY [facility] Last Admin: 06/24/18 09:10 Dose: 5 mg Digoxin (Digoxin) 0.125 mg PO DAILY@1800 [facility] Last Admin: 06/23/18 17:08 Dose: 0.125 mg Diltiazem HCl (Cardizem) 60 mg PO QID [facility] Last Admin: 06/24/18 13:36 Dose: 60 mg Gabapentin (Neurontin) 600 mg PO TID [facility] Last Admin: 06/24/18 13:36 Dose: 600 mg Insulin Human Regular (Novolin R) 0 unit SC ACHS [facility]; Protocol Last Admin: 06/24/18 12:59 Dose: 4 unit Metformin HCl (Glucophage) 500 mg PO BID [facility] Last Admin: 06/24/18 09:10 Dose: 500 mg Rosuvastatin Calcium (Crestor) 5 mg PO HS [facility] Last Admin: 06/23/18 21:16 Dose: 5 mg - Labs Labs: 06/23/18 11:17 06/23/18 11:17 - Constitutional Appears: Well, Non-toxic, No Acute Distress - Extremities Exam Additional comments: LE focused exam: Vasc: DP/PT pulses non-palpable b/l. CFT < 3 seconds to all digits. Skin temperature warm to warm from proximal to distal WNL b/l. No edema noted b/l Neuro: Epicritic and protective sensation grossly diminished b/l Derm: 0.4 cm x 0.5 cm x 0.1 cm ulceration with 100% granular base noted to anterior aspect of patient's right leg. No erythema, malodor, drainage, tracking, tunneling, undermining or other clinical signs of infection noted at this time. Early signs of deep tissue injury noted to posterior right heel MSK: No gross deformities appreciated. Pain on palpation of posterior right heel, improving - Neurological Exam Neurological Exam: Alert, Awake, Oriented x3 - Psychiatric Exam Psychiatric exam: Normal Affect, Normal Mood Assessment and Plan - Assessment and Plan (Free Text) Assessment: 72M seen and evaluated at bedside for anterior right leg wound and early right heel deep tissue injury Plan: Patient seen and evaluated with Dr. Younger Afebrile No plan for further surgical intervention at this time Wound left open to air at this time Multipodus boots reapplied Patient to follow up with Dr. Younger following discharge Podiatry will continue to follow while patient in house
[2018-06-24 16:27] VITALS: BP 103/69; PULSE 99; TEMP 97.7
[2018-06-24] MEDS: Digoxin 125 mcg (0.125 mg) Tab PO SCH (18:10)
[2018-06-24 18:11] VITALS: PULSE 98
== END 2018-06-24 18:20 | DRG 605 ==
LOC: C.ER 16:02 → C.9E 20:19 → C.5S 21:39
PROVIDERS: ADMIT Internal Medicine; ATTEND Internal Medicine
DX: S01.81XA Laceration without foreign body of other part of head, initial encounter (principal); S00.83XA Contusion of other part of head, initial encounter; I82.512 Chronic embolism and thrombosis of left femoral vein; L97.519 Non-pressure chronic ulcer of other part of right foot with unspecified severity; I13.0 Hypertensive heart and chronic kidney disease with heart failure and stage 1 through stage 4 chronic kidney disease, or unspecified chronic kidney disease; E11.621 Type 2 diabetes mellitus with foot ulcer; I82.532 Chronic embolism and thrombosis of left popliteal vein; I82.542 Chronic embolism and thrombosis of left tibial vein; E87.5 Hyperkalemia; E11.22 Type 2 diabetes mellitus with diabetic chronic kidney disease; I50.9 Heart failure, unspecified; I48.91 Unspecified atrial fibrillation; N18.9 Chronic kidney disease, unspecified; E11.40 Type 2 diabetes mellitus with diabetic neuropathy, unspecified; E11.51 Type 2 diabetes mellitus with diabetic peripheral angiopathy without gangrene; M79.602 Pain in left arm; M47.812 Spondylosis without myelopathy or radiculopathy, cervical region; M48.02 Spinal stenosis, cervical region; L60.8 Other nail disorders; W18.30XA Fall on same level, unspecified, initial encounter; E78.5 Hyperlipidemia, unspecified; F17.210 Nicotine dependence, cigarettes, uncomplicated; E78.00 Pure hypercholesterolemia, unspecified; Z79.01 Long term (current) use of anticoagulants; Z91.81 History of falling